=== PATIENT | male | born 1945 | race Caucasian/White ===

== ENCOUNTER 2018-03-26 13:42 | Outpatient (CLI) | payer MEDICARE ==
--- NOTE | 2018-03-26 15:28 | MRI ---
BRAIN MRI WITHOUT CONTRAST: HISTORY: Abnormal gait. Unsteady feet. Multiple falls. Right leg weakness. COMPARISON: None. FINDINGS: There is linear hyperintensity involving the cortex of the right cerebrum, on the axial gradient echo sequence, compatible with hemosiderin deposition/staining of the cortex, due to remote subarachnoid blood. There is GRE hypointensity at the expected region of the right subinsular cortex, which may r epresent a possible area of calcification. Comparison with noncontrast head CT would be beneficial. No acute parenchymal hemorrhage is appreciated. There is hemosiderin involving the left caudate nuc leus. There is age appropriate atrophy. There are malacic and gliotic changes involving the left parietal lobe. Additional white matter hyperintensities due to chronic small vessel ischemic changes are note d. No evidence of hydrocephalus. No parenchymal mass, mass effect, or midline shift. The basilar c isterns are patent. Central arterial flow voids are maintained. No restricted diffusion. Of note, the [place] is diminutive. 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 A partially empty sella is also id entified. Mild mucosal disease of the paranasal sinuses. Adequate mastoid air cell aeration. There is evidence of restricted diffusion involving the right cerebrum, subcortical white matter basilia g the right frontal and temporal lobes, near the vertex, as well as the left parietal lobe, near the vertex. The distribution suggests a possible watershed infarction. Sagittal T1 weighted images are limited due to motion. IMPRESSION: 1. Watershed infarction involving the right and, to a lesser extent, the left cerebrum. 2. 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 3. Hemosiderin staining of the right cerebrum, likely due to remote subarachnoid blood. 4. Hypointensity in the right subinsular cortex, which may represent calcification. POS: [facility]
== END 2018-03-26 13:43 | disposition home or self-care (01) ==
LOC: TBSIIMAG 13:42
DX: M62.81 Muscle weakness (generalized) (principal); I63.9 Cerebral infarction, unspecified; R93.0 Abnormal findings on diagnostic imaging of skull and head, not elsewhere classified
CPT/HCPCS: 70551

== ENCOUNTER 2018-06-02 12:18 | Outpatient (CLI) | payer MEDICARE ==
--- NOTE | 2018-06-02 15:08 | MRI ---
MRA NECK WITHOUT CONTRAST WITH 3D VOLUME RENDERING: Date: 06/02/18 CLINICAL HISTORY: Cerebrovascular accident with history of right leg weakness. FINDINGS: There is marked limitation due to patient motion. This distorts the regional arterial system; however , a well-defined left ICA is not visualized on the basis of this exam. This could relate to occlusion or high grade stenosis with flow limitation. The aortic arch and proximal vessels of the neck are no t visualized on the basis of this exam. The bilateral common carotid arteries are grossly patent, as is the imaged cervical right ICA. No definite high grade stenosis of the imaged vertebrobasilar syste m. IMPRESSION: Marked limitation with suggestion of occlusion versus high grade flow limiting stenosis of the cervic al left ICA. POS: [facility]
--- NOTE | 2018-06-02 16:06 | MRI ---
MRA BRAIN NONCONTRAST: MRA NISQUALLY OF [place] NONCONTRAST WITH 3D VOLUME RENDERING: CLINICAL HISTORY: Cerebrovascular accident. Right leg weakness. FINDINGS: There is parenchymal atrophy with associated compensatory dilatation of the ventricular system. Incr eased diffusion signal of the right central semiovale and posterior right frontal cortex is present, with T2 shine-through, compatible with subacute watershed infarctions. There is a small caliber of the visualized bilateral distal vertebral arteries, which converged to a small caliber basilar artery without high-grade stenosis or occlusion. There is a circulation to the left [employer]. Small caliber right [employer] is grossly patent. There is atherosclerotic irregularity o f the bilateral MCA, which are small caliber, diffusely. Focal moderate stenosis is present at the r ight M1 segment. The proximal left A1 segment is not visualized for comment. The right A1 is patent , and the anterior communicating artery is grossly unremarkable. Each A2 segment is grossly patent. Evaluation of the distal right ICA reveals no definite stenosis. There is absence of signal of the imaged aspect of the left ICA, indicating occlusion. IMPRESSION: 1. Subacute watershed infarctions of the right cerebral hemisphere. 2. Occlusion of the cervical left internal carotid artery. POS: [facility]
== END 2018-06-02 12:19 | disposition home or self-care (01) ==
LOC: BICMRI 12:18
PROVIDERS: ATTEND Family Medicine
DX: I63.9 Cerebral infarction, unspecified (principal); I65.22 Occlusion and stenosis of left carotid artery
CPT/HCPCS: 70544; 70547

== ENCOUNTER 2018-12-23 20:29 | Inpatient (IN) | payer MEDICARE ==
--- NOTE | 2018-12-23 22:29 | RAD ---
Radiograph chest one view: HISTORY: 73-year-old male with hypoglycemia FINDINGS: Prominent interstitial markings at lower lung zones. No consolidation identified. The cardiomediastin al silhouette is normal. No pneumothorax. The lateral costophrenic angles are sharp. IMPRESSION: No acute cardiopulmonary findings.
[2018-12-23 22:36] LABS: #Basophils 0.1 thou/uL (0.0-0.2); #Eosinphils 0.7 thou/uL (0.0-0.7); #Lymphocytes 1.4 thou/uL (1.20-3.40); #Monocytes 0.8 thou/uL (0.11-0.59); #Neutrophils 3.9 thou/uL (1.40-6.50); %Basophils 1.1 % (0.0-1.0); %Eosinophils 9.6 % (0.0-10.0); %Lymphocytes 21.2 % (21.0-51.0); %Monocytes 11.4 % (0.0-10.0); %Neutrophils 56.8 % (42.0-75.0); Hemoglobin 12.2 g/dL (14.0-18.0); Mean Corpuscular HGB CONC 32.9 g/dL (32.0-36.0); Mean Corpuscular Hemoglobin 29.6 pg (27.0-31.0); Mean Corpuscular Volume 89.9 fL (78.0-98.0); Platelet Count 203 thou/uL (130-400); RBC Distribution Width 11.8 % (11.5-14.5); Red Blood Cell (RBC) Count 4.12 mill/uL (4.70-6.10); White Blood Cell (WBC) Count 6.8 thou/uL (4.8-10.8)
--- NOTE | 2018-12-23 22:37 | CT ---
CT brain noncontrast: HISTORY: 73-year-old male with altered mental status and syncope, status post fall FINDINGS: There is no evidence of acute intra-axial or extra-axial hemorrhage. There is no midline shift or any other mass effect. There is no extra-axial fluid collection. There is no evidence of obstructive hydrocephalus. Calvarium is intact. There is diffuse brain parenchymal volume loss. There are low att enuation areas in the white matter. These are nonspecific, but in a patient of this age, they are probably chronic ischemic white matter changes due to microvascular atherosclerosis. Small old cortic al infarction involving right middle frontal gyrus. Small to moderate-sized old left upper parietal infarction including postcentral gyrus. IMPRESSION: 1) No acute intracranial findings. 2) involutional changes and chronic ischemic white matter changes. 3) bilateral upper cerebral old infarctions.
[2018-12-23 22:57] LABS: ALT (SGPT) 24 U/L (8-55); AST (SGOT) 20 U/L (5-34); Albumin 3.8 g/dL (3.4-4.8); Alkaline Phosphatase 74 U/L (40-150); Anion Gap 14 mmol/L (10-20); BUN (Urea Nitrogen) 39 mg/dL (8.4-25.7); Bilirubin, Total 0.4 mg/dL (0.2-1.2); Calc. Creatinine Clearance 0 mL/min (70-130); Calcium 9.8 mg/dL (7.8-10.44); Carbon Dioxide 24 mmol/L (23-31); Chloride 108 mmol/L (98-107); Estimated GFR-MDRD 42; Glucose 104 mg/dL (83-110); Potassium 4.4 mmol/L (3.5-5.1); Protein, Total 6.8 g/dL (5.8-8.1); Sodium 142 mmol/L (136-145)
[2018-12-23] MEDS ORDERED: Aspirin Chewable 81 MG TAB ONE (23:03)
[2018-12-24] MEDS ORDERED: Acetaminophen 325 MG TAB PO PRN (02:48)
[2018-12-24] MEDS ORDERED: Ondansetron PF 4 MG/2 ML Vial IVP PRN (02:48)
[2018-12-24] MEDS ORDERED: Ondansetron ODT 4 MG TAB PO PRN (02:48)
[2018-12-24] MEDS ORDERED: Acetaminophen 650 MG Suppository PR PRN (02:48)
[2018-12-24] MEDS: Sodium Chloride 0.9% 1,000 ML IV SCH ×2 (03:24→16:29)
--- NOTE | 2018-12-24 04:24 | HP ---
CHIEF COMPLAINT: Confusion and unsteadiness. HISTORY OF PRESENT ILLNESS: Mr. Sidhu is a pleasant 73-year-old man with a history of CVA x2 in the past, who states he previously was admitted to inpatient rehab approximately 1 year ago following the CVA. He had improvement, but more recently, has noted progressive deterioration in his gait and intermittent weakness, particularly in the lower extremities, which often give out on him. The patient reports an episode of confusion earlier this evening. He states he was going to go to the store with his daughter and had come outside without any shoes on and was briefly confused, thinking he had put them on. His daughter noted he seemed a bit more unsteady than usual. The patient reports feeling generally unwell. He went out with his daughter, came back, and while walking to the kitchen, suddenly felt his legs give way. Denies any associated dizziness, nausea, or vomiting. He reports having frequent headaches and often wakes up in the morning with headache. Denies any associated nausea or vomiting. No abdominal pain or cramping. Denies having any urinary symptoms. Has not had any changes with his bowels. No cough or shortness of breath. REVIEW OF SYSTEMS: All other review of systems apart from those mentioned above in HPI is negative. ALLERGIES: IODINE. CURRENT MEDICATIONS: 1. Plavix. 2. Temazepam. 3. Lexapro. 4. Tamsulosin. 5. Hydroxyzine. 6. Lipitor. 7. Metoprolol. 8. Levothyroxine. 9. Aspirin. PAST MEDICAL HISTORY: 1. Hypothyroidism. 2. BPH. 3. CVA x2. 4. Known carotid artery stenosis. 5. Depression. 6. Anxiety. PAST SURGICAL HISTORY: Left knee replacement. SOCIAL HISTORY: The patient denies any tobacco use or alcohol use. Denies any illicit drug use. PHYSICAL EXAMINATION: GENERAL: The patient appears well developed, well nourished, and in no acute distress. VITAL SIGNS: Temperature 98.7, pulse 75, respirations 16, O2 saturation 98% on room air, and blood pressure 155/68. HEENT: Normocephalic and atraumatic. Pupils are equal, round, and reactive to light. Sclerae are without icterus. Extraocular movements are intact. No lateral nystagmus present. Oropharynx is clear. NECK: Supple. LUNGS: Clear to auscultation bilaterally without any wheezes, rales, or rhonchi. CARDIAC: Regular rate and rhythm. ABDOMEN: Soft, nontender, and nondistended. Normoactive bowel sounds present. No guarding or rigidity. No renal angle tenderness. EXTREMITIES: Without any edema or calf tenderness. Power 5/5 in all limbs. Full range of motion in all limbs. NEUROLOGIC: Alert and oriented x3. No focal deficits present. Speech normal. Facial movements/sensation intact. SKIN: Without rash or jaundice. LABORATORY DATA: White blood count 6.8, hemoglobin 12.2, hematocrit 37.1, platelets 203. Sodium 142, potassium 4.4, chloride 108, BUN 39, creatinine 1.61, glucose 104, calcium 9.8, total bilirubin 0.4, AST 20, ALT 24, alkaline phosphatase 24. CK-MB 3, troponin 0.076. Albumin 3.8. TSH 0.0102. IMAGING STUDIES: Chest x-ray: No acute cardiopulmonary findings. Brain CT: No acute intracranial findings. Involutional changes and chronic ischemic white matter changes present. Bilateral upper cerebral old infarctions present. IMPRESSION AND PLAN: Mr. Sidhu is a very pleasant 73-year-old man, who is being admitted for transient confusion and worsening gait, concerning for possible transient ischemic attack. 1. Transient ischemic attack. The patient known to have history of stenosis. States his symptoms have been gradually worsening over the last few months and significantly worse over the last week. No symptoms at present. CT of the brain showed no acute changes. Due to elevated renal function, unable to obtain a CT angiogram, but we will obtain an MRI of the brain. A consult was placed to Neurology and carotid ultrasound was requested. 2. Lower extremity weakness. The patient has had frequent falls with sudden weakness in the legs. Potentially, general progressive deconditioning. Urinalysis was requested to rule out underlying urinary tract infection. The patient will benefit from PT/OT eval. Potentially, he may benefit from rehab screening pending results of additional investigations. 3. Hypertension. Resume home medications and monitor blood pressure. 4. Hypothyroidism. Resume home medications. 5. Depression and anxiety. Resume home medications. 6. Gastrointestinal prophylaxis. 7. Deep venous thrombosis prophylaxis. Mechanical SCDs. 8. Code status. The patient wishes to be DNAR. His surrogate decision maker would be his daughter, Luma Dobson. The patient's case was discussed with Dr. Ty, who agrees with plan of care as described above. Job ID: [id number]
[2018-12-24 04:28] LABS: #Basophils 0.1 thou/uL (0.0-0.2); #Eosinphils 0.8 thou/uL (0.0-0.7); #Lymphocytes 1.7 thou/uL (1.20-3.40); #Monocytes 0.8 thou/uL (0.11-0.59); #Neutrophils 3.2 thou/uL (1.40-6.50); %Basophils 1.2 % (0.0-1.0); %Eosinophils 11.6 % (0.0-10.0); %Lymphocytes 25.9 % (21.0-51.0); %Monocytes 12.9 % (0.0-10.0); %Neutrophils 48.5 % (42.0-75.0); Hemoglobin 11.6 g/dL (14.0-18.0); Mean Corpuscular HGB CONC 32.6 g/dL (32.0-36.0); Mean Corpuscular Hemoglobin 29.2 pg (27.0-31.0); Mean Corpuscular Volume 89.4 fL (78.0-98.0); Mean Platelet Volume 7.1 fL (7.4-10.4); Platelet Count 185 thou/uL (130-400); RBC Distribution Width 11.6 % (11.5-14.5); Red Blood Cell (RBC) Count 3.98 mill/uL (4.70-6.10); White Blood Cell (WBC) Count 6.6 thou/uL (4.8-10.8)
[2018-12-24] MEDS ORDERED: Temazepam 15 MG CAP PO PRN (04:34)
[2018-12-24] MEDS: hydrALAZINE 20 MG/ML VIAL SLOW IVP PRN ×2 (04:40→16:27)
[2018-12-24] MEDS ORDERED: hydrALAZINE 20 MG/ML VIAL ONE (04:43)
[2018-12-24 04:56] LABS: Troponin I 0.072 ng/mL (< 0.028)
[2018-12-24 05:19] LABS: Triglycerides 91 mg/dL (Less than 150)
[2018-12-24 05:21] LABS: Anion Gap 13 mmol/L (10-20); BUN (Urea Nitrogen) 39 mg/dL (8.4-25.7); Calc. Creatinine Clearance 0 mL/min (70-130); Calcium 9.6 mg/dL (7.8-10.44); Carbon Dioxide 22 mmol/L (23-31); Chloride 109 mmol/L (98-107); Cholesterol 63 mg/dl (< 200 Desired); Estimated GFR-MDRD 46; Glucose 94 mg/dL (83-110); HDL Cholesterol 21 mg/dL (>60 Neg Risk); Sodium 139 mmol/L (136-145)
[2018-12-24 05:24] LABS: LDL Cholesterol, Calculated 24 mg/dL
[2018-12-24] MEDS ORDERED: Levothyroxine Sodium 100 MCG TAB PO SCH (06:00)
[2018-12-24] MEDS ORDERED: Clopidogrel Bisulfate 75 MG TAB ONE (09:00)
[2018-12-24] MEDS: Clopidogrel Bisulfate 75 MG TAB PO SCH (09:09)
[2018-12-24] MEDS: Aspirin 81 mg Enteric Coated Tablet PO SCH (09:09)
[2018-12-24] MEDS: Escitalopram Oxalate 20 mg Tablet PO SCH (09:10)
[2018-12-24] MEDS: Tamsulosin HCl 0.4 MG CAP PO SCH (09:10)
--- NOTE | 2018-12-24 09:50 | MRI ---
Noncontrast enhanced MRI images brain HISTORY: Progressive weakness dizziness for several days. Comparison made to previous exam from 03/26/2018. Multiplanar multisequence noncontrast enhanced MRI images brain obtained. Images demonstrate diffuse cortical atrophy and deep white matter ischemic changes. Old area of left parietal and right frontal stroke with gliotic changes seen. Multiple old areas of intraparenchymal hemorrhages with secondary conversion to hemosiderin seen. The se appear to been present on the previous exam and are unchanged. Right anterior parafalcine small subdural chronic hematoma seen. This is also unchanged. Normal intracranial flow voids seen. IMPRESSION: 1: Cortical atrophy and deep white matter ischemic changes. Numerous old areas of intracranial stroke s seen. No significant interval changes seen.
--- NOTE | 2018-12-24 11:27 | ULT ---
BILATERAL CAROTID DUPLEX ULTRASOUND: HISTORY: Dizziness. TECHNIQUE: [place]-scale ultrasound with color-flow and spectral Doppler imaging of the extracranial carotid artery system was performed bilaterally. FINDINGS: There is plaque formation in both ICAs. There is complete occlusion of the left ICA, without evidence of flow. The peak systolic velocity in the right ICA measures 570 cm per second, with an end-diastolic velocit y of 240 cm per second and a systolic ratio of 5.03. Flow in both vertebral arteries remains antegrade. IMPRESSION: 1. Occluded left internal carotid artery. 2. Severe (greater than 70%) stenosis involving the right internal carotid artery. POS: [facility]
[2018-12-24 14:45] VITALS: BMI 28.3
[2018-12-24] MEDS ORDERED: Amlodipine 5 MG TAB PO SCH (16:30)
--- NOTE | 2018-12-24 16:56 | PRG ---
DATE OF SERVICE: 12/24/2018 SUBJECTIVE: The patient is seen and examined at the bedside. He is feeling significantly better. He just came back from the Radiology Department, where he had brain MRI done and carotid Doppler study. OBJECTIVE: HEENT: His head is atraumatic and normocephalic. Eyes are PERRLA. Sclerae are nonicteric. Oral mucosa is moist. NECK: Supple. No lymphadenopathy. Thyroid is not palpable. LUNGS: Clear. HEART: S1, S2 normal. No S3. No S4. No any murmur. ABDOMEN: Soft, nontender. Bowel sounds are present. No organomegaly. EXTREMITIES: There is no clubbing, cyanosis, or edema. NEUROLOGICAL: He is alert and oriented x4. There is no any sensory or motor deficit present. Cranial nerves are intact. LABORATORY DATA: Labs showed white count of 6.6, hemoglobin 11.6, hematocrit 35.6, platelet count is 185,000. Sodium 139, potassium 5.0, chloride 109, CO2 of 22, BUN 39, creatinine 1.50. Three sets of troponins, indeterminate, 0.076, 0.06, 0.072. Cholesterol 63, LDL 24, HDL 21, triglycerides 91. Third generation TSH is 0.010. IMAGING STUDIES: Carotid Doppler study showed complete occlusion of left internal carotid artery and severe greater than 70% stenosis involving the right internal carotid artery. IMPRESSION: 1. fall, which seems to be without loss of consciousness. 2. Bilateral internal carotid artery stenosis, complete occlusion on the left side and more than 70% on the right side. 3. Lower extremity weakness. Apparently, the patient has this issue going on approximately for 2 years. He did physical therapy for several months, which improved his weakness, but approximately 1 month after he finished, he started having the weakness again. 4. Hypertension. 5. Hypothyroidism. 6. Depression and anxiety. PLAN: Plan is to start him on amlodipine 5 mg tonight and then daily since his blood pressure is running high at 195. We will get Dr. Tierney on consult for his significant stenosis of the right internal carotid artery. He is to establish with him for some time. We will continue his current regimen with Plavix and aspirin, and we will restart his atorvastatin 40 mg daily. Job ID: [id number]
[2018-12-24] MEDS ORDERED: predniSONE 50 MG TAB PO SCH ×3 (17:30→23:55)
[2018-12-24 18:49] LABS: Bilirubin Negative (Negative); Blood, Urine Negative (Negative); Clarity CLEAR (Clear); Glucose, Urine (Dipstick) Negative (Negative); Leukocyte Negative (Negative); Nitrite Negative (Negative); Protein, Urine (Dipstick) Negative (Neg-Trace); Specific Gravity, Urine 1.011 (1.002-1.036); Urobilinogen 0.2 mg/dL (0.2-1.0); pH, Urine 5.5 (5.0-9.0)
[2018-12-24 18:51] LABS: Bacteria/HPF None Seen HPF (None Seen); Hyaline Casts/LPF 0-3 HYALINE CAST LPF (0-3 Hyaline); RBC/HPF 0-3 HPF (0-3); Squamous Epithelial None Seen HPF (0-3); Urine Culture Reflex No No; WBC/HPF None Seen HPF (0-3)
[2018-12-24] MEDS ORDERED: Sodium Chloride 0.45% 1,000 ML IV SCH (22:00)
--- NOTE | 2018-12-25 00:58 | CON ---
DATE OF CONSULTATION: HISTORY OF PRESENT ILLNESS: This is a 73-year-old gentleman who was admitted with profound leg weakness and falling over. The patient does have past medical history of recurrent episodes of leg weakness and falls, previously have been taking care of in the dialysis area where he suffered a stroke, probably last year. Workup at that time demonstrated evidence of bilateral CVAs. A carotid ultrasound done in dialysis at that time showed an occluded left internal carotid artery and 50% right internal carotid artery stenosis. The patient has multiple cardiovascular risk factors including hyperlipidemia and a remote smoking history, although he has not smoked since 2006. SOCIAL HISTORY: He currently lives with his daughter. He is unable to drive due to multiple falls. He is retired from maintenance for [employer]. MEDICATIONS: 1. Lexapro 10 mg a day. 2. Metoprolol 50 mg twice a day. 3. Temazepam at bedtime. 4. He was also taking Plavix 75 a day. 5. Flomax 0.4 a day. 6. Atorvastatin 40 a day. 7. Aspirin 81 a day. 8. Synthroid 100 mcg a day. ALLERGIES: HE REPORTS ALLERGIES TO IODINE, WHICH CAUSES A RASH. PHYSICAL EXAMINATION: VITAL SIGNS: Blood pressure 190/80, heart rate 68. GENERAL: Alert, cooperative gentleman, in no distress. NECK: Bilateral carotid bruits. No JVD. LUNGS: Clear to auscultation. CARDIAC: Distant heart sounds. Regular rhythm. No murmurs. ABDOMEN: Soft and nontender. EXTREMITIES: He has palpable femoral and popliteal pulses bilaterally. NEUROLOGIC: Speech is normal. Strength appears normal in all extremities. Workup at this time shows an ultrasound on the right with velocities greater than 500 cm/second, which would be consistent with a 90% right internal carotid stenosis in the face of a known left carotid stenosis. We will need a CT angiogram to sort out the difference in the ultrasound from that last year to this year and we will premedicate with prednisone and hydrate overnight. Job ID: [id number]
[2018-12-25] MEDS: hydrALAZINE 20 MG/ML VIAL SLOW IVP PRN (04:22)
[2018-12-25] MEDS: Levothyroxine Sodium 75 MCG TAB PO SCH (06:35)
[2018-12-25] MEDS: Amlodipine 5 MG TAB PO SCH (08:28)
[2018-12-25] MEDS: Tamsulosin HCl 0.4 MG CAP PO SCH (08:30)
[2018-12-25] MEDS: Aspirin 81 mg Enteric Coated Tablet PO SCH (08:30)
[2018-12-25] MEDS: Clopidogrel Bisulfate 75 MG TAB PO SCH (08:31)
[2018-12-25] MEDS: Atorvastatin Calcium 40 MG TAB PO SCH (08:31)
[2018-12-25] MEDS: Escitalopram Oxalate 20 mg Tablet PO SCH (08:31)
[2018-12-25] MEDS: Sodium Chloride 0.9% 1,000 ML IV SCH (08:32)
--- NOTE | 2018-12-25 09:46 | CT ---
CONTRAST ENHANCED CTA CAROTIDS: HISTORY: Patient with abnormal history of TIAs. Abnormal carotid Doppler ultrasound evaluation. FINDINGS: Contrast-enhanced CTA carotid arteries obtained. Two-D and 3D reconstruction images performed on an independent 3D work station. Calcification is seen in the aortic arch. No definite evidence of visualized pulmonary parenchymal l esion seen. No definite evidence of soft tissue neck abnormality seen. The parotid spaces are unremarkable. CTA: The right brachiocephalic artery is patent. The right common carotid artery is patent. In the right carotid bifurcation, there is severe calcified and noncalcified plaque in the origin of the right IC A with approximately focal area of an approximately 90% right ICA stenosis. The length of the stenos is measures approximately 7-8 mm. Findings concerning for high-grade right ICA stenosis. More dista lly, the right ICA Is patent. Flow is seen in the right ECA. LEFT CAROTID: The left common carotid artery is patent. Good flow is seen in the left external carotid artery. At the left carotid bifurcation, there is complete occlusion of the left internal carotid artery. Right and left vertebral artery and basilar arteries are patent. IMPRESSION: 1. Complete occlusion left internal carotid artery. 2. Approximately 90% right internal carotid artery stenosis. Surgical consultation recommended. CODE T
[2018-12-25] MEDS ORDERED: hydrOXYzine 25 MG TAB PO PRN (12:14)
--- NOTE | 2018-12-25 13:16 | PRG ---
DATE OF SERVICE: 12/25/2018 SUBJECTIVE: The patient is seen and examined at the bedside. He does not have much complaints to offer. He feels significantly better. His appetite is fair. OBJECTIVE: VITAL SIGNS: Blood pressure is 117/68, pulse is 65, respiratory rate is 18, O2 saturation is 98% on room air, and temperature is 97.9. HEENT: His head is atraumatic and normocephalic. Eyes are PERRLA. Sclerae are nonicteric. Oral mucosa is moist. NECK: Supple. LUNGS: Clear. HEART: S1 and S2 normal. No S3. No S4. ABDOMEN: Soft, nontender, and nondistended. EXTREMITIES: No clubbing, cyanosis, or edema. NEUROLOGICAL: He is alert and oriented x4. There are no any motor or sensory deficits present. Cranial nerves are intact. LABORATORY DATA: Labs showed normal urinalysis from yesterday. angiography showed more than 90% stenosis in his carotid artery on the right side and complete occlusion of the left internal carotid artery. IMPRESSION: 1. Status post fall which seems to be without loss of consciousness, related to his lower extremity weakness. 2. Bilateral internal carotid artery stenosis, left side complete stenosis and the right side 90% or more on the CT angiogram done this morning. The patient was seen by Dr. Tierney for cardiovascular evaluation, and I believe that he is going to have endarterectomy done on the right side by Dr. Tierney tomorrow morning. 3. Lower extremity weakness. We will consider outpatient physical therapy after he recovers from his surgery. 4. Hypertension. 5. Hypothyroidism. 6. Depression and anxiety. PLAN: The patient's blood pressure is improved since he is started on amlodipine. He is going to have right carotid endarterectomy by Dr. Tierney tomorrow morning, and we will continue the rest of the regimen. Job ID: [id number]
--- NOTE | 2018-12-25 22:58 | CON ---
DATE OF CONSULTATION: 12/25/2018 CONSULTING PHYSICIAN: Hospitalist Service. IMPRESSION: 1. Possible transient ischemic attack secondary to high-grade right carotid stenosis. 2. 100% occlusion of the left carotid. 3. The patient is on maximum medical therapy. PLAN: 1. Vascular Surgery has booked him for carotid endarterectomy. 2. Orthostatic vital signs to rule out orthostatic hypotension. HISTORY OF PRESENT ILLNESS: Mr. Siduh is a 73-year-old man who came in after a fall at the house. He reports that his legs became weak and he fell to the ground. He is a bit uncertain but thinks that possibly the right leg got weak first. He did not notice any weakness in the right arm or face. He did not have any slurred speech or alteration of awareness. He felt a bit weak in general when it happened, but did not feel like he was losing consciousness. He came in for evaluation. His MRI of the brain showed some chronic small-vessel ischemic changes, but no acute abnormalities. His carotid ultrasound suggested a 70% stenosis on the right. CT angiogram suggests somewhat worse. His lipid panel showed a ratio of 3.0. His lab work was all unremarkable other than a mildly elevated creatinine. He was currently taking aspirin and Plavix along with a statin. PAST MEDICAL HISTORY: TIAs, hyperlipidemia, hypertension. ALLERGIES: IODINE. SOCIAL HISTORY: No tobacco or alcohol. FAMILY HISTORY: Noncontributory. MEDICATIONS: Medication list was reviewed. REVIEW OF SYSTEMS: Ten-system review of systems is otherwise negative. PHYSICAL EXAMINATION: VITAL SIGNS: Stable. He is afebrile. HEENT: Pupils are equal and reactive. Conjunctivae are clear. Oropharynx is clear. NECK: Supple. No lymphadenopathy. EXTREMITIES: No cyanosis or edema. NEUROLOGIC: He is alert and appropriate. His speech is fluent and clear. Cranial nerves 2 through 12 are intact. Motor exam shows good strength bilaterally without fix or drift. Cerebellar testing shows normal [id number] movements. Sensations intact to touch. He walked with a walker today and reports he does not feel back to his baseline level of steadiness. LABORATORY DATA: EKG shows a normal sinus rhythm. SUMMARY: Gentleman has a high-grade stenosis on the right and 100% occlusion on the left. I totally agree with endarterectomy. It is difficult to say whether this was a TIA or orthostatic episode, cardiac arrhythmia would also be a consideration. Job ID: [id number]
[2018-12-26] MEDS: Sodium Chloride 0.9% 1,000 ML IV SCH ×2 (00:50→21:15)
[2018-12-26] MEDS: Levothyroxine Sodium 75 MCG TAB PO SCH (05:35)
[2018-12-26] MEDS ORDERED: Fentanyl 100 MCG/2 ML VIAL ONE ×2 (06:53→10:09)
[2018-12-26] MEDS ORDERED: Protamine Sulfate 50 MG/5 ML VIAL ONE (07:04)
[2018-12-26] MEDS ORDERED: Heparin 5,000 UNITS/ML VIAL ONE (07:04)
[2018-12-26] MEDS ORDERED: Phenylephrine HCL 10 MG/ML VIAL ONE (08:35)
[2018-12-26] MEDS ORDERED: Promethazine HCl 25 MG/ML VIAL IM PRN (09:46)
[2018-12-26] MEDS ORDERED: Promethazine HCl 25 MG/ML VIAL SLOW IVP PRN (09:46)
[2018-12-26] MEDS ORDERED: Ondansetron HCl/PF 4 MG/2 ML Vial IVP PRN (09:46)
[2018-12-26] MEDS ORDERED: Nitroglycerin 50 MG/250 ML BOT 250 ML IVPB PRN (10:23)
[2018-12-26] MEDS ORDERED: Ondansetron PF 4 MG/2 ML Vial IVP PRN (10:23)
[2018-12-26] MEDS ORDERED: Fentanyl 100 MCG/2 ML VIAL SLOW IVP PRN (10:23)
[2018-12-26] MEDS ORDERED: HYDROcodone/Acetaminophen 5/325 mg Tablet PO PRN ×2 (10:23)
[2018-12-26] MEDS ORDERED: Sodium Chloride 0.9% 1,000 ML IV SCH (10:23)
[2018-12-26] MEDS ORDERED: Phenylephrine 10 MG/NS 250 ML 250 ML IVPB PRN (10:23)
[2018-12-26] MEDS ORDERED: DOPamine 400 MG/D5W 250 ML 250 ML IVPB PRN (10:23)
[2018-12-26] MEDS ORDERED: Midazolam HCl 2 mg/2 ml Vial ONE (10:37)
--- NOTE | 2018-12-26 13:01 | OP ---
DATE OF PROCEDURE: 12/26/2018 PREOPERATIVE DIAGNOSES: Critical right carotid stenosis, left carotid occlusion. PROCEDURE PERFORMED: Right carotid endarterectomy with pericardial patch angioplasty. ANESTHESIA: General. ESTIMATED BLOOD LOSS: Less than 100. DESCRIPTION OF PROCEDURE: After adequate anesthesia had been obtained, the patient was prepped and draped after an ultrasound-guided marking. An incision was made and common internal and external carotid artery was exposed. Hypoglossal nerve was not visualized. After 7500 units of heparin and an ACT greater than 210 seconds, clamps were applied. Arteriotomy performed and a 12-[place] shunt snugly fit in the ICA. Endarterectomy was then performed with nice tapering distally. The area was thoroughly irrigated. Following this, the bovine patch was used to close the arteriotomy. The shunt was removed prior to completing the suture line. Vessels were backflushed and forward flushed and flows restored up the external and then internal carotid artery. Protamine was given to partially reverse the heparin and after obtaining good hemostasis, the wound was irrigated and closed in layers. Job ID: [id number]
[2018-12-26] MEDS ORDERED: Sodium Chloride 0.9% 100 ML ONE (14:19)
[2018-12-26] MEDS ORDERED: CEFAZOLIN 1 GM VIAL ONE ×2 (14:19)
[2018-12-26] MEDS ORDERED: ePHEDrine 50 MG/ML VIAL ONE (15:22)
[2018-12-26] MEDS ORDERED: Rocuronium Bromide 10 MG/ML (10ML VIAL) ONE (15:22)
[2018-12-26] MEDS ORDERED: Glycopyrrolate 0.2 MG/ML 5 ML SYRINGE ONE (15:22)
[2018-12-26] MEDS ORDERED: PHENYLEPHRINE-NS 100 MCG/ML 10 ML SYRINGE ONE (15:22)
[2018-12-26] MEDS ORDERED: Lidocaine 1% PF 5 ML VIAL ONE (15:22)
[2018-12-26] MEDS ORDERED: Ondansetron PF 4 MG/2 ML Vial ONE (15:22)
[2018-12-26] MEDS ORDERED: PROPOFOL 200 MG/20 ML VIAL ONE (15:22)
[2018-12-26] MEDS ORDERED: Heparin 10,000 UNITS/ 10 ML VIAL ONE (15:22)
[2018-12-26] MEDS ORDERED: CEFAZOLIN 2 GM in Premix Bag 1 BAG IVPB SCH (15:30)
--- NOTE | 2018-12-26 17:23 | PRG ---
DATE OF SERVICE: 12/26/2018 SUBJECTIVE: The patient is seen and examined at the bedside. He is getting ready for his surgery this morning. OBJECTIVE: VITAL SIGNS: Blood pressure is 144/76, pulse is 60, temperature is 97.3, respirations 16, O2 saturation is 95% on room air. HEENT: His head is atraumatic and normocephalic. Eyes are PERRLA. Sclerae are nonicteric. Oral mucosa is moist. NECK: Supple. LUNGS: Clear. HEART: S1 and S2, somewhat irregular. No S3. No S4. ABDOMEN: Soft, nontender, nondistended. EXTREMITIES: No clubbing, cyanosis, or edema. NEUROLOGIC: He is alert and oriented x4. There are no any motor deficits. LABORATORY DATA: None today. IMPRESSION: 1. Status post fall and possible transient ischemic attack. 2. Bilateral internal carotid artery stenosis with left-sided completely stenotic and right side more than 90%. The patient was seen by neurologist, who recommends surgical intervention since the patient is on maximal therapy at this point. 3. Lower extremity weakness. 4. Hypertension. 5. Hypothyroidism. 6. Depression and anxiety. PLAN: Plan is to go ahead with left endarterectomy. Continue current regimen. Continue atorvastatin, aspirin, , Plavix, Lexapro, levothyroxine, metoprolol, and Flomax after the surgery and based on Dr. Tierney's postop recommendations. Job ID: [id number]
[2018-12-26] MEDS: Atorvastatin Calcium 40 MG TAB PO SCH (17:54)
[2018-12-26] MEDS: Aspirin 81 mg Enteric Coated Tablet PO SCH (17:54)
[2018-12-26] MEDS: Tamsulosin HCl 0.4 MG CAP PO SCH (17:55)
[2018-12-26] MEDS: Clopidogrel Bisulfate 75 MG TAB PO SCH (17:55)
[2018-12-26] MEDS: Escitalopram Oxalate 20 mg Tablet PO SCH (17:55)
[2018-12-26] MEDS: Amlodipine 5 MG TAB PO SCH (19:58)
--- NOTE | 2018-12-26 20:27 | CT ---
Head CT without contrast 12/26/2018: COMPARISON: 12/23/2018 HISTORY: Aphasia, right-sided deficits TECHNIQUE: Axial CT imaging at 5 mm intervals from vertex through skull base without contrast FINDINGS: There is mucosal thickening of the ethmoid air cells and the right maxillary sinus, stable. No acute osseous abnormality. Multifocal encephalomalacia and periventricular hypodensity, consistent with prior ischemia, stable. No intracranial hemorrhage, midline shift, mass effect, or ve ntricular enlargement. IMPRESSION: Stable head CT-no acute findings.
[2018-12-26] MEDS: CEFAZOLIN 2 GM in Premix Bag 1 BAG IVPB SCH (21:14)
[2018-12-26] MEDS: Heparin 25,000 units/D5W 500 ML IVPB SCH (21:25)
[2018-12-26] MEDS ORDERED: Heparin 5,000 UNITS/ML VIAL SLOW IVP SCH (21:30)
[2018-12-27] MEDS: CEFAZOLIN 2 GM in Premix Bag 1 BAG IVPB SCH (04:11)
[2018-12-27] MEDS: Levothyroxine Sodium 75 MCG TAB PO SCH (05:22)
[2018-12-27 06:02] LABS: #Lymphocytes 1.6 thou/uL (1.20-3.40); #Monocytes 1.2 thou/uL (0.11-0.59); #Neutrophils 6.1 thou/uL (1.40-6.50); %Basophils 0.5 % (0.0-1.0); %Eosinophils 10.5 % (0.0-10.0); %Lymphocytes 16.5 % (21.0-51.0); %Monocytes 11.6 % (0.0-10.0); Hemoglobin 10.6 g/dL (14.0-18.0); Mean Corpuscular HGB CONC 33.9 g/dL (32.0-36.0); Mean Corpuscular Hemoglobin 30.3 pg (27.0-31.0); Mean Corpuscular Volume 89.5 fL (78.0-98.0); Mean Platelet Volume 7.7 fL (7.4-10.4); Platelet Count 169 thou/uL (130-400); RBC Distribution Width 11.8 % (11.5-14.5); White Blood Cell (WBC) Count 9.9 thou/uL (4.8-10.8)
[2018-12-27 06:13] LABS: Anion Gap 11 mmol/L (10-20); BUN (Urea Nitrogen) 23 mg/dL (8.4-25.7); Calc. Creatinine Clearance 70 mL/min (70-130); Carbon Dioxide 23 mmol/L (23-31); Chloride 109 mmol/L (98-107); Estimated GFR-MDRD 52; Glucose 93 mg/dL (83-110); Potassium 3.9 mmol/L (3.5-5.1); Sodium 139 mmol/L (136-145)
[2018-12-27] MEDS: Atorvastatin Calcium 40 MG TAB PO SCH (08:41)
[2018-12-27] MEDS: Tamsulosin HCl 0.4 MG CAP PO SCH (08:41)
[2018-12-27] MEDS: Clopidogrel Bisulfate 75 MG TAB PO SCH (08:41)
[2018-12-27] MEDS: Aspirin 81 mg Enteric Coated Tablet PO SCH (08:41)
[2018-12-27] MEDS: Escitalopram Oxalate 20 mg Tablet PO SCH (08:41)
[2018-12-27] MEDS ORDERED: Aspirin Chewable 81 MG TAB PO SCH (09:00)
--- NOTE | 2018-12-27 09:04 | PRG ---
DATE OF SERVICE: 12/27/2018 SUBJECTIVE: The patient is seen examined at bedside. He had episode of a TIA last night after the surgery around 7 o'clock. He started having some slurred speech and facial droop. Dr. Tierney was notified and he started him on heparin drip and everything resolved in an hour. The CT scan was done and which did not really show any new findings. OBJECTIVE: VITAL SIGNS: Blood pressure is 108/55, pulse is 62, respiratory rate is 14, O2 saturation is 98% on room air. HEENT: His head is atraumatic and normocephalic. Eyes are PERRLA. Sclerae are nonicteric. Oral mucosa is moist. NECK: He has incision on the right side of the neck, post surgical. LUNGS: Clear. HEART: S1, S2 normal. No S3. No S4. ABDOMEN: Soft, nontender. Bowel sounds are present. No organomegaly. EXTREMITIES: No clubbing, cyanosis, or edema. NEUROLOGICAL EXAMINATION: He is alert and oriented x4. There is no any motor or sensory deficits present. Cranial nerves are intact. There is some weakness in the lower extremities, but this was present before the surgery. LABORATORY DATA: Labs showed white count of 9.9, hemoglobin 10.6, hematocrit 31.3, platelet count is 169,000. APTT 54.4. Sodium 139, potassium 3.9, chloride 109, CO2 of 23, BUN 23, creatinine 1.35. The rest of chemistry within normal limits. CT of the brain as I mentioned above, did not show any abnormalities. IMPRESSION: 1. Status post fall and possible transient ischemic attack, most likely secondary to right-sided, more than 90% stenosis in the internal carotid artery. The patient's left internal carotid artery is completely occluded. The patient as mentioned above, had transient ischemic attack last night post surgery. He was started on heparin drip and he is going to remain in the unit until tomorrow. This is managed per cardiothoracic surgeon. 2. Lower extremity weakness. We will work with the community case manager to send him to rehab for PT. 3. Hypertension. 4. Hypothyroidism. 5. Depression and anxiety. PLAN: As mentioned above, plan is to keep him for additional 24 hours on IV heparin, continue his Plavix, aspirin, and atorvastatin, and continue his Flomax and metoprolol, and he should be able to go to telemetry tomorrow, then transfer to the rehab when it is arranged. Job ID: [id number]
--- NOTE | 2018-12-27 10:38 | CON ---
DATE OF CONSULTATION: HISTORY OF PRESENT ILLNESS: Peña Sidhu is a 73-year-old very pleasant gentleman, who has been in the hospital since 12/24. Presented to the hospital with a history of multiple passing-out spells, that has been going on several years. He has no weaknesses. He has had evidence of previous CVA in the past. At this time, he had a workup, which shows 90% right internal carotid stenosis. He underwent left carotid endarterectomy by Dr. Niall aragon in the ICU. He is awake, alert, responsive this morning. He also has high-grade occlusion of his left carotid. He is on medical therapy. PAST MEDICAL HISTORY: Pertinent for hypertension, renal failure, hyperlipidemia, orthostatic hypotension, multiple falls. He apparently does snore. History of hypothyroidism. Depression. PAST SURGICAL HISTORY: Left knee. ALCOHOL: None. TOBACCO: None. HOME MEDICATIONS: Includes, 1. Hydroxyzine 25. 2. Plavix 75. 3. Restoril 15. 4. Flomax 0.4. 5. Toprol-XL 50. 6. Lexapro 20. 7. Lipitor 40. 8. Aspirin 81. 9. Synthroid 100. ALLERGIES: IODINE. SOCIAL HISTORY: Worked for [employer], retired. REVIEW OF SYSTEMS: Ten-point negative. PHYSICAL EXAMINATION: VITAL SIGNS: O2 saturation is 98% on room air, pulse 64, blood pressure 140/60, respiratory rate 15. CHEST: No wheezing, crackles. CARDIAC: Normal S1, S2. No gallops. ABDOMEN: No masses. LABORATORY DATA: White count 9000, H and H 10 and 30, platelet count is normal. Creatinine 1.3. CT brain unremarkable. IMPRESSION: 1. Status post right carotid endarterectomy. 2. Benign prostatic hypertrophy. 3. Hypertension. 4. Apparently, orthostatic hypotension. 5. Possible sleep apnea. PLAN: Pulmonary duffy, appears to be stable. Continue aggressive PT, supportive care. Outpatient sleep study by his primary care physician. We will follow. Consultation note, 70 minutes, 50% direct patient care. Job ID: [id number]
[2018-12-27] MEDS: Sodium Chloride 0.9% 1,000 ML IV SCH ×2 (16:21→17:12)
[2018-12-27] MEDS: Heparin 25,000 units/D5W 500 ML IVPB SCH (19:00)
[2018-12-27] MEDS: hydrALAZINE 20 MG/ML VIAL SLOW IVP PRN (21:02)
[2018-12-28] MEDS: hydrALAZINE 20 MG/ML VIAL SLOW IVP PRN (05:35)
[2018-12-28] MEDS: Levothyroxine Sodium 75 MCG TAB PO SCH (05:52)
[2018-12-28] MEDS: Acetaminophen 325 MG TAB PO PRN (07:49)
--- NOTE | 2018-12-28 08:28 | PRG ---
DATE OF SERVICE: 12/28/2018 SUBJECTIVE: The patient is seen and examined at the bedside. He is doing well. He could not sleep last night much, but overall, he is feeling better. He did not have any other unexpected events overnight. OBJECTIVE: VITAL SIGNS: Blood pressure is 138/61, pulse is 72, respiratory rate is 17, O2 saturation is 99% on room air. HEENT: His head is atraumatic and normocephalic. Eyes are PERRLA. Sclerae are nonicteric. Oral mucosa is moist. NECK: Supple. Right side of the neck incision is healing properly. LUNGS: Clear. HEART: S1, S2 normal. No S3. No S4. ABDOMEN: Soft, nontender, nondistended. EXTREMITIES: No clubbing, cyanosis, or edema. NEUROLOGICAL EXAMINATION: He follows my commands. He moves his all four extremities. There is no any motor or sensory deficits present. Cranial nerves are intact. LABORATORY DATA: Showed APTT is 66.9. IMPRESSION: 1. Status post fall and possible transient ischemic attack, most likely secondary to right-sided more than 90% stenosis in the internal carotid artery, status post right endarterectomy. The patient is still on heparin drip. Cardiothoracic surgeon will make decision about stopping the drip most likely today. 2. Lower extremity weakness. The patient will be sent to rehabilitation center for PT. 3. Hypertension. 4. Hypothyroidism. 5. Depression and anxiety. PLAN: We will continue his aspirin, Plavix, and atorvastatin along with Flomax and metoprolol and most likely, he will be transferred to Telemetry floor after his heparin drip is stopped. Job ID: [id number]
[2018-12-28] MEDS: Tamsulosin HCl 0.4 MG CAP PO SCH (08:38)
[2018-12-28] MEDS: Escitalopram Oxalate 20 mg Tablet PO SCH (08:38)
[2018-12-28] MEDS: Atorvastatin Calcium 40 MG TAB PO SCH (08:38)
[2018-12-28] MEDS: Clopidogrel Bisulfate 75 MG TAB PO SCH (08:38)
[2018-12-28] MEDS: Aspirin 81 mg Enteric Coated Tablet PO SCH (08:38)
--- NOTE | 2018-12-28 10:27 | PRG ---
DATE OF SERVICE: 12/28/2018 SUBJECTIVE: A 73-year-old gentleman, in no distress. OBJECTIVE: VITAL SIGNS: Saturations on room air 95, blood pressure 120/64, respirations 18, and pulse 80. CHEST: Decreased breath sounds. No wheezing. CARDIAC: Normal S1 and S2. No gallops. ABDOMEN: No masses. IMPRESSION: Status post right carotid endarterectomy, hypertension, hypothyroidism. PLAN: The patient is much improved. He is on Plavix and still on heparin drip. Once his drip is discontinued, he can probably be transferred out of the ICU. Pulmonary will follow while in the ICU. One-half hour of critical time. Job ID: [id number]
[2018-12-28] MEDS: Sodium Chloride 0.9% 1,000 ML IV SCH (13:00)
[2018-12-28] MEDS: Temazepam 15 MG CAP PO PRN (20:22)
[2018-12-29] MEDS: hydrALAZINE 20 MG/ML VIAL SLOW IVP PRN (00:06)
[2018-12-29] MEDS: Levothyroxine Sodium 75 MCG TAB PO SCH (05:23)
[2018-12-29] MEDS: Escitalopram Oxalate 20 mg Tablet PO SCH (08:19)
[2018-12-29] MEDS: Clopidogrel Bisulfate 75 MG TAB PO SCH (08:19)
[2018-12-29] MEDS: Tamsulosin HCl 0.4 MG CAP PO SCH (08:19)
[2018-12-29] MEDS: Atorvastatin Calcium 40 MG TAB PO SCH (08:19)
[2018-12-29] MEDS: Aspirin 81 mg Enteric Coated Tablet PO SCH (08:19)
--- NOTE | 2018-12-29 10:13 | PRG ---
DATE OF SERVICE: 12/29/2018 SUBJECTIVE: The patient is seen and examined at the bedside. He is in C3, CCU. He is doing well. There were no any unexpected events overnight. OBJECTIVE: VITAL SIGNS: Blood pressure is 97/60, pulse is 79, temperature is 99.1, respiratory rate is 22, O2 saturation is 100% on room air. HEENT: His head is atraumatic and normocephalic. Eyes are PERRLA. Sclerae are nonicteric. Oral mucosa is moist. NECK: Supple. The incision is healing properly on the right side of the neck. LUNGS: Clear. HEART: S1 and S2 are normal. No S3. No S4. ABDOMEN: Soft and nontender. Bowel sounds are present. No organomegaly. EXTREMITIES: No clubbing, cyanosis, or edema. NEUROLOGIC: He is alert and oriented x3. There are no any motor or sensory deficits present. Cranial nerves are intact. LABORATORY DATA: None today. IMPRESSION: 1. Status post fall and possible transient ischemic attack, most likely secondary to right-sided 90% stenosis in the internal carotid artery, status post right endarterectomy with recurrent slurred speech post procedure and treatment with heparin, which resolved completely. 2. Lower extremity weakness. 3. Hypertension. 4. Hypothyroidism. 5. Depression and anxiety. PLAN: Plan is to transfer him to Stroke Unit today. Get caseworker protective services to work on his rehab transfer. For now, continue his current regimen with Plavix, Lipitor, aspirin, Lexapro, Synthroid, metoprolol, and Flomax, and as soon as his rehab center is approved and arranged, we can transfer him there. Job ID: [id number]
--- NOTE | 2018-12-29 10:15 | PRG ---
DATE OF SERVICE: 12/29/2018 SUBJECTIVE: Peña Sihdu is a 73-year-old gentleman. OBJECTIVE: VITAL SIGNS: Temperature 99, blood pressure 143/53, respiratory rate 18, pulse 80. GENERAL: No shortness of breath. No pain. He was walking yesterday. NECK: Status post right carotid endarterectomy. CHEST: No wheezing or crackles. CARDIAC: Normal S1, S2. No gallops. ABDOMEN: No masses. IMPRESSION: Status post right carotid endarterectomy. PLAN: Disposition home. Job ID: [id number]
[2018-12-29] MEDS: Sodium Chloride 0.9% 1,000 ML IV SCH (12:00)
[2018-12-29] MEDS ORDERED: Bisacodyl 5 MG TAB PO SCH (12:45)
[2018-12-29] MEDS: Acetaminophen 325 MG TAB PO PRN (13:23)
--- NOTE | 2018-12-29 14:49 | PQF ---
CLINICAL DOCUMENTATION IMPROVEMENT CLARIFICATION FORM: ICD-10 Updated PLEASE DO AN ADDENDUM TO THE PROGRESS NOTE WITH ANY DOCUMENTATION UPDATES OR ADDITIONS AND CARRY THROUGH TO DC SUMMARY. THANK YOU. DATE: 12/29/2018 ATTN: Dr. Baez Please exercise your independent, professional judgment in responding to the clarification form. Clinical indicators are provided on the bottom of this form for your review Please check appropriate box(s): [ ] CKD without ARF/ANGEL please specify Stage of CKD (see below) [ ] Acute on Chronic Renal Failure please specify Stage of CKD [ ] Other diagnosis [ ] Unable to determine In addition, please specify: Present on Admission (POA): [ ] Yes [ ] No [ ] Unable to determine For continuity of documentation, please document condition throughout progress notes and discharge summary. Thank You. CLINICAL INDICATORS - SIGNS / SYMPTOMS / LABS 12/23 12/24 12/27 Labs: Creatinine 1.61 1.50 1.35 Estimated GFR 42 46 52 H&P 12/23: Creatinine 1.61 Due to elevated renal function, unable to obtain a CT angiogram RISKS: 12/27 ([place]) PMH: Pertinent for hypertension, renal failure orthostatic hypotension, multiple falls. TREATMENT: MAR: Order 12/24 - 12/26: NS 1,000 ml IV 65 mls/hr Order 12/26: NS 1,000 ml IV 50 mls/hr National Kidney Foundation Guidelines for CKD Staging Stage I Kidney damage with normal or increased GFR GFR > 90 Stage II Kidney damage with mildly decreased GFR GFR 60-89 Stage III Kidney damage with moderately decreased GFR GFR 30-59 Stage IV Kidney damage with severely decreased GFR GFR 16-29 Stage V Kidney failure GFR < 15 ESRD End Stage Renal Disease On dialysis Acute Renal Failure/Acute Kidney Failure defined as: Increases in SCr by (>) 0.3 mg/dl within 48 hours OR- Increases in SCr by (>) 1.5 times baseline, known or presumed to have occurred within the prior 7 days OR- Urine volume < 0.5 ml/kg/hour for 6 hours (KDIGO supplement 2012 for RIFLE/PADDY criteria) Thank you, Shayy (This form is maintained as a part of the permanent medical record) 2014 [employer], [employer]. All Rights Reserved Shayy Donis, RN, BSN [email or web address] Office: [phone] [facility]
[2018-12-29] MEDS: Temazepam 15 MG CAP PO PRN (20:36)
[2018-12-30] MEDS: Levothyroxine Sodium 75 MCG TAB PO SCH (05:58)
[2018-12-30] MEDS: Sodium Chloride 0.9% 1,000 ML IV SCH (06:30)
[2018-12-30] MEDS: Escitalopram Oxalate 20 mg Tablet PO SCH (08:05)
[2018-12-30] MEDS: Tamsulosin HCl 0.4 MG CAP PO SCH (08:05)
[2018-12-30] MEDS: Clopidogrel Bisulfate 75 MG TAB PO SCH (08:06)
[2018-12-30] MEDS: Aspirin 81 mg Enteric Coated Tablet PO SCH (08:06)
[2018-12-30] MEDS: Atorvastatin Calcium 40 MG TAB PO SCH (08:06)
[2018-12-30] MEDS ORDERED: hydrOXYzine 25 MG TAB PO PRN (12:21)
[2018-12-30] MEDS ORDERED: Docusate 100 MG CAP PO PRN (12:22)
[2018-12-30 15:39] VITALS: BP 149/80; TEMP 98.5
--- NOTE | 2018-12-31 02:21 | DIS ---
DATE OF ADMISSION: 12/25/2018 DATE OF DISCHARGE: 12/30/2018 FINAL DIAGNOSES: 1. Transient ischemic attack. 2. Left internal carotid artery occlusion and right internal carotid artery 90% occlusion, status post right endarterectomy. 3. Hypertension. 4. Hypothyroidism. 5. History of several strokes in the past. 6. Depression and anxiety. CONSULTANTS: 1. Dr. Blaine Tierney, Cardiothoracic Surgery. 2. Dr. Yovany Oscar, Neurology. 3. Dr. Jose David Campoverde, Pulmonary/Critical Care. HOSPITAL COURSE: The patient is a 73-year-old male with history of previous CVA x2, who got admitted to the hospital for confusion and unsteadiness, emergency Room evaluation, and he was found to have white count of 6.8, hemoglobin 12.2, hematocrit 37.1, and platelet count 203. Normal electrolytes. Creatinine 1.61. Normal liver function tests. TSH of 0.0102. Normal CK-MB. Also, he had chest x-ray done which did not show any acute abnormalities and CT of the brain showed no acute intracranial findings with involutional changes and chronic ischemic white matter changes, also it showed bilateral upper cerebral old infarctions. The patient got admitted to a stroke unit. He has a history of previous lower extremity weakness and recently he had some falls and brain MRI, which showed cortical atrophy and deep white matter changes with numerous areas of intracranial strokes. Doppler study showed completely occluded left internal carotid artery and severely occluded greater than 70% right internal carotid artery. Cardiothoracic surgeon, Dr. Tierney was consulted and he ordered CT angiogram which confirmed high rate stenosis in the right internal carotid artery and complete occlusion in the left internal carotid artery. The patient underwent right endarterectomy by Dr. Tierney on December 26, 2018 and post operation, he started having some TIA. He was placed on heparin drip and TIA resolved. He was watched for additional 24 hours in the intensive care unit. Followup CT of the brain did not show any acute new findings. Continued on his Plavix and aspirin. He was transferred back to the Stroke Unit, where his stay was uneventful. He was able to walk more than 500 feet. Originally, we plan to send him to inpatient rehab, but he does not qualify for that. He is discharged home in good condition. His blood pressure is 149/69, pulse is 76, temperature is 98.4, respiratory rate is 16, and O2 saturation is 95% on room air. He was seen and examined before his discharge. He was discharged home. Activity, he will take it easy for the next week or so until he sees his primary care physician in 1 week. Also, he will call Dr. Tierney's office and set up followup appointment. I encouraged him to see neurologist, Dr. Oscar. Apparently, he has established with neurologist in [place], but he did not see him for quite some time and he would prefer to have one in this area locally, so he is going to call Dr. Oscar's office and set up followup appointment. DISCHARGE MEDICATIONS: At the time of discharge, his medications are: 1. Levothyroxine 100 mcg once a day. 2. Aspirin 81 mg once a day. 3. Atorvastatin 40 mg at bedtime. 4. Lexapro 20 mg once a day. 5. Metoprolol succinate 50 mg once a day. 6. Flomax 0.4 mg once a day. 7. Temazepam 15 mg at bedtime. 8. Clopidogrel 75 mg once a day. 9. Hydroxyzine 25 mg p.o. as needed. We are going to refer him for outpatient physical therapy for his lower extremity weakness. Time spent on this discharge is less than 30 minutes. Job ID: [id number]
== END 2018-12-30 16:57 | disposition home or self-care (01) | DRG 39 ==
LOC: ERS 20:29 → 2SE 23:00 → ERHOLD 23:00 → 2SE 12-24 13:48 → OBSVTOIN 12-25 14:00 → CCU 12-26 08:05 → 2SE 12-26 16:59 → CCU 12-26 20:36 → 2SE 12-29 18:11
PROVIDERS: ADMIT Hospitalist; ATTEND Hospitalist
PROC: 03CK0ZZ Extirpation of Matter from Right Internal Carotid Artery, Open Approach (ICD-10-PCS; principal; 2018-12-26)
PROC: 03UK0KZ Supplement Right Internal Carotid Artery with Nonautologous Tissue Substitute, Open Approach (ICD-10-PCS; 2018-12-26)
DX: I65.23 Occlusion and stenosis of bilateral carotid arteries (principal); E03.9 Hypothyroidism, unspecified; N40.0 Benign prostatic hyperplasia without lower urinary tract symptoms; F32.9 Major depressive disorder, single episode, unspecified; F41.9 Anxiety disorder, unspecified; Z66 Do not resuscitate; E78.5 Hyperlipidemia, unspecified; I10 Essential (primary) hypertension; Z79.02 Long term (current) use of antithrombotics/antiplatelets; Z96.652 Presence of left artificial knee joint; Z79.82 Long term (current) use of aspirin; Z91.041 Radiographic dye allergy status; Z86.73 Personal history of transient ischemic attack (TIA), and cerebral infarction without residual deficits
CPT/HCPCS: 36415; 36416; 70450; 70498; 70551; 71045; 80048; 80053; 80061; 81001; 82553; 84443; 84484; 85025; 85730; 93005; 93010; 93880; J0360; J0690; J1642; J1644; J2001; J2250; J2370; J2405; J2704; J2720; J3010; J3490

== ENCOUNTER 2019-01-13 15:37 | Emergency (ER) | payer MEDICARE ==
[2019-01-13 16:40] LABS: #Basophils 0.1 thou/uL (0.0-0.2); #Eosinphils 0.9 thou/uL (0.0-0.7); #Lymphocytes 1.4 thou/uL (1.20-3.40); #Monocytes 0.7 thou/uL (0.11-0.59); #Neutrophils 5.2 thou/uL (1.40-6.50); %Lymphocytes 16.6 % (21.0-51.0); %Monocytes 8.2 % (0.0-10.0); %Neutrophils 63.1 % (42.0-75.0); Hemoglobin 11.7 g/dL (14.0-18.0); Mean Corpuscular HGB CONC 31.8 g/dL (32.0-36.0); Mean Corpuscular Hemoglobin 28.2 pg (27.0-31.0); Mean Corpuscular Volume 88.9 fL (78.0-98.0); Mean Platelet Volume 6.3 fL (7.4-10.4); Platelet Count 317 thou/uL (130-400); RBC Distribution Width 13.4 % (11.5-14.5); Red Blood Cell (RBC) Count 4.15 mill/uL (4.70-6.10); White Blood Cell (WBC) Count 8.2 thou/uL (4.8-10.8)
[2019-01-13 16:57] LABS: ALT (SGPT) 25 U/L (8-55); AST (SGOT) 22 U/L (5-34); Albumin 3.9 g/dL (3.4-4.8); Alkaline Phosphatase 63 U/L (40-150); Anion Gap 13 mmol/L (10-20); BUN (Urea Nitrogen) 31 mg/dL (8.4-25.7); Bilirubin, Total 0.4 mg/dL (0.2-1.2); Calc. Creatinine Clearance 0 mL/min (70-130); Calcium 9.6 mg/dL (7.8-10.44); Carbon Dioxide 24 mmol/L (23-31); Chloride 106 mmol/L (98-107); Estimated GFR-MDRD 35; Globulin 2.7 g/dL (2.4-3.5); Glucose 94 mg/dL (83-110); Potassium 4.8 mmol/L (3.5-5.1); Protein, Total 6.6 g/dL (5.8-8.1); Sodium 138 mmol/L (136-145)
== END 2019-01-13 17:32 | disposition home or self-care (01) ==
LOC: SCSER 15:37
DX: I95.1 Orthostatic hypotension (principal); E86.0 Dehydration; E03.9 Hypothyroidism, unspecified; N40.0 Benign prostatic hyperplasia without lower urinary tract symptoms; I10 Essential (primary) hypertension; F32.9 Major depressive disorder, single episode, unspecified; Z86.73 Personal history of transient ischemic attack (TIA), and cerebral infarction without residual deficits
CPT/HCPCS: 80053; 85025; 93005

== ENCOUNTER 2019-07-01 18:44 | Emergency (ER) | payer MEDICARE ==
[~2019-07-01 18:44] MED LIST: ISOVUE-370 76%-LOCM 1 ML ONE
[2019-07-01 19:30] LABS: #Basophils 0.1 thou/uL (0.0-0.2); #Eosinphils 0.9 thou/uL (0.0-0.7); #Lymphocytes 1.2 thou/uL (1.20-3.40); #Monocytes 0.7 thou/uL (0.11-0.59); #Neutrophils 6.5 thou/uL (1.40-6.50); %Basophils 0.6 % (0.0-1.0); %Eosinophils 9.3 % (0.0-10.0); %Lymphocytes 12.6 % (21.0-51.0); %Monocytes 7.9 % (0.0-10.0); %Neutrophils 69.7 % (42.0-75.0); Hemoglobin 14.2 g/dL (14.0-18.0); Mean Corpuscular HGB CONC 32.6 g/dL (32.0-36.0); Mean Corpuscular Hemoglobin 28.4 pg (27.0-31.0); Mean Corpuscular Volume 86.9 fL (78.0-98.0); Mean Platelet Volume 6.5 fL (7.4-10.4); Platelet Count 289 thou/uL (130-400); RBC Distribution Width 12.9 % (11.5-14.5); Red Blood Cell (RBC) Count 5.02 mill/uL (4.70-6.10); White Blood Cell (WBC) Count 9.3 thou/uL (4.8-10.8)
[2019-07-01] MEDS ORDERED: HYDROcodone/Acetaminophen 10/325 mg Tablet ONE (19:33)
[2019-07-01] MEDS ORDERED: Famotidine/PF 20 mg/2ml Vial ONE (19:34)
[2019-07-01] MEDS ORDERED: diphenhydrAMINE 50 MG/ML VIAL ONE (19:34)
[2019-07-01] MEDS ORDERED: methylPREDNISolone Sod Succ/PF 125 MG/2 ML VIAL ONE (19:34)
[2019-07-01] MEDS ORDERED: Cyclobenzaprine 10 MG TAB ONE (19:34)
[2019-07-01 19:48] LABS: ALT (SGPT) 16 U/L (8-55); AST (SGOT) 13 U/L (5-34); Albumin 3.8 g/dL (3.4-4.8); Alkaline Phosphatase 69 U/L (40-110); Anion Gap 15 mmol/L (10-20); BUN (Urea Nitrogen) 20 mg/dL (8.4-25.7); Bilirubin, Total 0.6 mg/dL (0.2-1.2); Calc. Creatinine Clearance 0 mL/min (70-130); Calcium 9.2 mg/dL (7.8-10.44); Carbon Dioxide 22 mmol/L (23-31); Chloride 105 mmol/L (98-107); Estimated GFR-MDRD 54; Globulin 3.1 g/dL (2.4-3.5); Glucose 98 mg/dL (83-110); Protein, Total 6.9 g/dL (5.8-8.1); Sodium 138 mmol/L (136-145)
--- NOTE | 2019-07-01 20:41 | CT ---
EXAM: CTA of the chest and abdomen HISTORY: Back pain COMPARISON: None TECHNIQUE: Multiple contiguous axial images were obtained a CTA of the chest and abdomen with contras t per aortic dissection protocol. Sagittal and coronal 3-D MIP reformats were performed. FINDINGS: HEART: Normal in size without focal cardiac abnormality. Atherosclerotic calcifications in the roland ry arteries. PULMONARY ARTERIES: Normal in caliber without filling defects to suggest pulmonary emboli. MEDIASTINUM: No hilar or mediastinal lymphadenopathy. LUNGS: No focal infiltrates or masses. PLEURAL SPACE: No pleural effusion or pneumothorax. CHEST AND ABDOMINAL WALL SOFT TISSUES: Unremarkable LIVER: Unremarkable. GALLBLADDER: Unremarkable. KIDNEYS: Nonobstructing calcifications in both kidneys measuring up to 5 mm in size.. SPLEEN: Unremarkable. PANCREAS: Unremarkable. BOWEL: Scattered diverticula in the colon.. RETROPERITONEUM: No lymphadenopathy BONES: Degenerative changes in the spine. ASCENDING THORACIC AORTA: Normal caliber without evidence of dissection or aneurysmal dilatation. DESCENDING THORACIC AORTA: Normal caliber without evidence of dissection or aneurysmal dilatation. ABDOMINAL AORTA: Normal caliber without evidence of dissection or aneurysmal dilatation. Moderate dif fuse atherosclerotic disease. CELIAC TRUNK: Patent SMA: Patent JOE: Patent RENAL ARTERIES: 2 right and one left renal arteries without significant atherosclerotic disease A stent is seen in the right common iliac artery. IMPRESSION: 1. No evidence of thoracic or abdominal aortic aneurysm or dissection. Moderate atherosclerotic disea se is seen in the aorta. 2. Bilateral nephrolithiasis
== END 2019-07-01 21:39 | disposition home or self-care (01) ==
LOC: ERS 18:44
DX: M54.5 Low back pain (principal); E03.9 Hypothyroidism, unspecified; I10 Essential (primary) hypertension; F32.9 Major depressive disorder, single episode, unspecified; Z86.73 Personal history of transient ischemic attack (TIA), and cerebral infarction without residual deficits; Z79.899 Other long term (current) drug therapy; Z79.82 Long term (current) use of aspirin
CPT/HCPCS: 36415; 71275; 72191; 74175; 80053; 85025; 96374; 96375; J1200; J2930; Q9966; S0028

== ENCOUNTER 2019-07-03 16:56 | Inpatient (IN) | payer MEDICARE ==
[~2019-07-03 16:56] MED LIST changes: +Heparin 1,000 UNITS/ML VIAL ONE; -ISOVUE-370 76%-LOCM 1 ML ONE
[2019-07-03] MEDS ORDERED: Ondansetron PF 4 MG/2 ML Vial ONE (17:56)
[2019-07-03] MEDS ORDERED: Morphine 4 MG/ML VIAL ONE (17:56)
--- NOTE | 2019-07-03 18:33 | RAD ---
EXAM: CHEST ONE VIEW HISTORY: Preoperative evaluation. COMPARISON: 12/23/2018 FINDINGS: The cardiac silhouette and pulmonary vasculature is within normal limits. The lungs are clear. Degene rative changes are again seen in the spine. Thoracic aorta remains ectatic. There has been no significant interval change from the prior exam. IMPRESSION: No acute cardiopulmonary process.
[2019-07-03 18:40] LABS: #Basophils 0.1 thou/uL (0.0-0.2); #Eosinphils 0.1 thou/uL (0.0-0.7); #Lymphocytes 0.9 thou/uL (1.20-3.40); #Monocytes 0.4 thou/uL (0.11-0.59); %Basophils 0.6 % (0.0-1.0); %Eosinophils 0.8 % (0.0-10.0); %Lymphocytes 7.3 % (21.0-51.0); %Monocytes 3.5 % (0.0-10.0); %Neutrophils 87.8 % (42.0-75.0); Hemoglobin 13.3 g/dL (14.0-18.0); Mean Corpuscular HGB CONC 32.5 g/dL (32.0-36.0); Mean Corpuscular Hemoglobin 28.2 pg (27.0-31.0); Mean Corpuscular Volume 86.7 fL (78.0-98.0); Mean Platelet Volume 6.6 fL (7.4-10.4); Platelet Count 312 thou/uL (130-400); RBC Distribution Width 13.1 % (11.5-14.5); Red Blood Cell (RBC) Count 4.72 mill/uL (4.70-6.10); White Blood Cell (WBC) Count 12.5 thou/uL (4.8-10.8)
[2019-07-03 18:45] LABS: INR-International Normal Ratio 1.2; PTT 32.7 SEC (22.9-36.1); Prothrombin Time 15.1 SEC (12.0-14.7)
[2019-07-03 19:03] LABS: ALT (SGPT) 20 U/L (8-55); AST (SGOT) 23 U/L (5-34); Albumin 3.9 g/dL (3.4-4.8); Alkaline Phosphatase 72 U/L (40-110); Anion Gap 13 mmol/L (10-20); BUN (Urea Nitrogen) 30 mg/dL (8.4-25.7); Bilirubin, Total 0.4 mg/dL (0.2-1.2); CK (CPK) 386 U/L (30-200); Calc. Creatinine Clearance 0 mL/min (70-130); Carbon Dioxide 23 mmol/L (23-31); Chloride 106 mmol/L (98-107); Estimated GFR-MDRD 38; Globulin 3.1 g/dL (2.4-3.5); Glucose 112 mg/dL (83-110); Potassium 4.4 mmol/L (3.5-5.1); Sodium 138 mmol/L (136-145)
[2019-07-03] MEDS ORDERED: Piperacillin/Tazobactam 4.5 GM VIAL ONE (19:03)
[2019-07-03 20:09] LABS: Bacteria/HPF None Seen HPF (None Seen); Bilirubin Negative (Negative); Blood, Urine Trace (Negative); Clarity Clear (Clear); Glucose, Urine (Dipstick) Normal (Negative); Leukocyte Negative Leu/uL (Negative); Nitrite Negative (Negative); Protein, Urine (Dipstick) 10 mg/dL (Neg-Trace); RBC/HPF 0-3 HPF (0-3); Squamous Epithelial None Seen HPF (0-3); Urobilinogen Normal mg/dL (Less than 2); WBC/HPF 0-3 HPF (0-3)
[2019-07-03] MEDS ORDERED: Nitroglycerin 2% Ointment 1 INCH/1 GM Packet ONE (20:38)
[2019-07-03] MEDS ORDERED: Morphine 4 MG/ML VIAL SLOW IVP PRN (21:11)
[2019-07-03] MEDS ORDERED: Sodium Chloride 0.9% 1,000 ML IV SCH (21:15)
[2019-07-03] MEDS ORDERED: Acetaminophen 325 MG TAB PO PRN (21:27)
[2019-07-03] MEDS ORDERED: Vancomycin HCl 1 GM in Premix Bag 1 BAG IVPB SCH ×2 (21:27→23:30)
[2019-07-03] MEDS ORDERED: Famotidine 20 MG TAB PO SCH (21:30)
[2019-07-03 23:21] VITALS: BMI 29.5
[2019-07-04] MEDS ORDERED: Temazepam 15 MG CAP PO PRN (00:29)
--- NOTE | 2019-07-04 01:04 | CON ---
DATE OF CONSULTATION: HISTORY OF PRESENT ILLNESS: Mr. Sidhu presented to the emergency department this evening following outpatient MRI ordered by his primary care physician. Mr. Sidhu has had approximately 5 weeks of left-sided low back pain with occasional radiating pain in the posterior thigh on the left side. This has been significantly worse earlier in the week and he was in the emergency room on Saturday, the and was sent home with negative imaging studies. Followup with primary care today prompted MRI, which showed some small areas of possible diskitis or osteomyelitis and was sent back to the emergency department for further workup. Neurosurgery was consulted. I have seen Mr. Sidhu in the ER. He is resting comfortably. He states that he has had some left-sided low back pain and radiating pain into the back of his left leg, nothing into his lower leg or foot. No numbness, or tingling. No bowel or bladder dysfunction. No saddle anesthesia. He does have history of a couple of cysts under skin, one on the anterior chest and one on the thoracic back. He does take Plavix. No fever or chills reported. He fell yesterday due to a dizzy spell. Denies hitting his head. Otherwise, the patient is alert and oriented. No upper extremity weakness or change in sensation. REVIEW OF SYSTEMS: A 10-point review of systems has been completed and is negative other than stated in the above HPI. ALLERGIES: IODINE CONTRAST, SHELLFISH CONTAINING PRODUCTS. PAST MEDICAL HISTORY: Includes hypothyroidism, benign prostate hypertrophy, hypertension, history of 2 strokes, cerebrovascular accident with clogged left carotid artery. PAST SURGICAL HISTORY: Left knee and carotid thrombectomy. SOCIAL HISTORY: Denies alcohol use, drug use. No smoking history. Lives at home with his . PHYSICAL EXAMINATION: VITAL SIGNS: Blood pressure 185/102, heart rate 97, respirations 16, temperature 98.4, O2 sats 95% on room air. CONSTITUTIONAL: The patient is alert and oriented x3. He is afebrile, hypertensive, appears nontoxic. HEENT. Head is normocephalic and atraumatic. Pupils are equal, round, and reactive to light. Extraocular movements are intact. Hearing is intact. Moist mucous membranes. RESPIRATIONS: Normal work of breathing on room air. Symmetric chest rise. EXTREMITIES.: 5/5 strength in deltoids, biceps, triceps, turner off strength bilaterally. Lower extremities 5/5 strength in hip flexion, knee flexion, extension, dorsiflexion, plantar flexion, EHL. There are no sensory changes bilaterally. NEUROLOGIC: The patient is awake, alert, oriented x3. Speech is spontaneous and fluent. Normal fund of knowledge. Cranial nerves 2 through 12 are tested and intact. There are no lateralizing motor or sensory deficits. No clonus. No Babinski. IMAGING STUDIES: [facility] There is evidence of diskitis at L3-4 and osteomyelitis with prevertebral and peridiscal infection including multiple microabscesses and left psoas muscle myositis with associated bilateral foraminal stenosis and multilevel degenerative changes. ASSESSMENT AND PLAN: Mr. Sidhu is a 73-year-old male with lumbar osteomyelitis and diskitis, back pain. Reviewing the imaging, there is no significant compression on the nerves. He is not having any symptoms of cauda equina. There are no motor or sensory deficits. No saddle anesthesia, bowel or bladder issues. At this time, we do not recommend any surgical intervention. Recommend workup with the Hospitalist and Infectious Disease. If there are any neurologic decline, or unable to obtain a sample of bacteria and needing a biopsy, can reconsult Neurosurgery. Job ID: [id number]
[2019-07-04] MEDS: Labetalol HCl 100 MG/20 ML VIAL SLOW IVP PRN (01:18)
--- NOTE | 2019-07-04 01:34 | HP ---
PRIMARY CARE PHYSICIAN: . CHIEF COMPLAINT: Severe back pain. HISTORY OF PRESENT ILLNESS: Mr. Sidhu is a very pleasant 73-year-old gentleman, who has a history of peripheral vascular disease. He says that he was in his usual state of health until about 5 weeks ago when he says he has started feeling something was stabbing in his back. He said the pain got progressively worse and worse to the point where he could hardly get dressed and the pain was extremely severe. He says over the last 2 weeks , it got even worse. He denies having any fever or chills. No nausea. No vomiting. He had noted some constipation, but no difficulty with his bowel or bladder function. He says he has a history of having a previous stroke and has had leg weakness since then, but otherwise no complaints of any new extremity weakness. He went to see his primary care physician who sent him to the [facility] to have an MRI done of his lower back and it was found that he had some small epidural abscesses in the lumbar region and was requested to come to the ER for admission. Otherwise, the patient denies any other complaint. No chest pain. No shortness of breath. No PND. No orthopnea. Prior to him having back pain, he used to be fairly active. REVIEW OF SYSTEMS: All systems were reviewed and are negative except for that mentioned in the history of present illness. PAST MEDICAL HISTORY: Significant for previous cerebral vascular accident as well as peripheral vascular disease. PAST SURGICAL HISTORY: He has had a left knee replacement. ALLERGIES: INCLUDE IODINE. SOCIAL HISTORY: He lives with his daughter. He denies any drug use, tobacco use or alcohol. He is a full code and is . He would like for his daughter, Luma to be his surrogate decision maker. FAMILY HISTORY: Unknown. Everybody lived into their 90s. CURRENT MEDICATIONS: Include: 1. Plavix 75 mg daily. 2. Flomax 0.4 mg daily. 3. Hydroxyzine 25 mg as needed. 4. Lipitor 40 mg daily. 5. Levothyroxine 100 mcg p.o. daily. 6. Aspirin 81 mg daily. 7. Fluoxetine 20 mg daily. 8. Temazepam 15 mg daily. 9. Flexeril 10 mg every 8 hours as needed. 10. Lidoderm patch. PHYSICAL EXAMINATION: GENERAL: He is alert and oriented. He appears to be in no acute distress. He is well developed and well nourished. VITAL SIGNS: Blood pressure was 185/102, heart rate 97, respiratory rate of 16, temperature was 98. His current blood pressure is 155/100. HEENT: Pupils are equal, round, and reactive to light. Extraocular muscles are intact. His sclerae anicteric. THROAT: There is no erythema, no exudates. NECK: No adenopathy, no bruits. LUNGS: Clear to auscultation. There was no wheezing, no rales, no rhonchi. CARDIOVASCULAR: He has a normal S1 and S2. There is no S3 or S4. No murmurs, clicks, or rubs. ABDOMEN: Obese it is soft, nontender, and nondistended. Positive for bowel sounds. There is no rebound, no guarding, no organomegaly. EXTREMITIES: There is no clubbing, cyanosis, no edema. NEUROLOGIC: His muscle strength is 5/5 in both his upper and lower extremities. His reflexes were symmetric; however it was a bit equivocal on the left. It was slightly diminished at the patellar. He does have some hammertoe deformities. SKIN AND INTEGUMENT: No other significant skin changes. No rash. LABORATORY DATA: Current lab results, the white blood cell count is 12.5, hemoglobin 13.3, hematocrit is 40.9, and platelet count is 312. INR is 1.2, and chemistry panel is currently pending. ASSESSMENT: 1. This is a pleasant 73-year-old gentleman, who has been having severe back pain, which has gotten progressively worse over the past 5 weeks. He was evaluated by his primary care physician and found to have an epidural abscess. He has already been evaluated by Neurosurgery and it is felt that this is a nonsurgical issue. He will therefore be admitted to the medical floor. We will start him on empiric IV antibiotics. We will continue vancomycin and Zosyn. Consult ID for evaluation and likely he will need a PICC line placed for long-term IV antibiotics. 2. Peripheral vascular disease. We will continue the Plavix since there is no plan for surgery as well as his low-dose aspirin. 3. He will be placed on deep venous thrombosis prophylaxis. 4. Depression. Continue fluoxetine. 5. Probable BPH. Continue Flomax. Job ID: [id number]
[2019-07-04] MEDS: Piperacillin/Tazobactam 3.375 GM in Sodium Chloride 0.9% 100 ML IVPB SCH ×3 (02:29→13:21)
[2019-07-04] MEDS ORDERED: Piperacillin/Tazobactam 4.5 GM in Sodium Chloride 0.9% 100 ML IVPB SCH (04:00)
[2019-07-04] MEDS: hydrALAZINE 20 MG/ML VIAL SLOW IVP PRN (04:35)
[2019-07-04 05:13] LABS: #Lymphocytes 0.9 thou/uL (1.20-3.40); #Monocytes 0.5 thou/uL (0.11-0.59); %Basophils 0.4 % (0.0-1.0); %Eosinophils 0.3 % (0.0-10.0); %Lymphocytes 9.9 % (21.0-51.0); %Monocytes 4.9 % (0.0-10.0); %Neutrophils 84.5 % (42.0-75.0); Hemoglobin 11.7 g/dL (14.0-18.0); Mean Corpuscular HGB CONC 32.5 g/dL (32.0-36.0); Mean Corpuscular Hemoglobin 28.3 pg (27.0-31.0); Mean Platelet Volume 6.7 fL (7.4-10.4); Platelet Count 291 thou/uL (130-400); RBC Distribution Width 13.1 % (11.5-14.5); Red Blood Cell (RBC) Count 4.15 mill/uL (4.70-6.10); White Blood Cell (WBC) Count 9.5 thou/uL (4.8-10.8)
[2019-07-04 05:54] LABS: Anion Gap 13 mmol/L (10-20); BUN (Urea Nitrogen) 24 mg/dL (8.4-25.7); Calc. Creatinine Clearance 71 mL/min (70-130); Calcium 8.6 mg/dL (7.8-10.44); Carbon Dioxide 24 mmol/L (23-31); Chloride 106 mmol/L (98-107); Estimated GFR-MDRD 50; Glucose 142 mg/dL (83-110); Potassium 3.8 mmol/L (3.5-5.1); Sodium 139 mmol/L (136-145)
[2019-07-04] MEDS: HYDROcodone/Acetaminophen 5/325 mg Tablet PO PRN ×3 (05:54→17:42)
[2019-07-04] MEDS ORDERED: Vancomycin HCl 1 GM in Premix Bag 1 BAG IVPB SCH (06:00)
[2019-07-04] MEDS ORDERED: Levothyroxine Sodium 100 MCG TAB PO SCH (06:00)
[2019-07-04] MEDS: Tamsulosin HCl 0.4 MG CAP PO SCH (07:51)
[2019-07-04] MEDS: Atorvastatin Calcium 40 MG TAB PO SCH (07:51)
[2019-07-04] MEDS: Enoxaparin Sodium 40 MG/0.4 ML SYRINGE SC SCH (07:51)
[2019-07-04] MEDS: Aspirin 81 mg Enteric Coated Tablet PO SCH (07:51)
[2019-07-04] MEDS: hydrALAZINE 25 MG TAB PO PRN ×2 (08:49→16:35)
[2019-07-04] MEDS ORDERED: Clopidogrel Bisulfate 75 MG TAB PO SCH (09:00)
[2019-07-04] MEDS ORDERED: Escitalopram Oxalate 20 mg Tablet PO SCH (09:00)
--- NOTE | 2019-07-04 12:23 | PDOC.HOSPP ---
- Subjective Encounter Date: 07/04/19 Encounter Time: 12:00 Subjective: The patient reports severe left sided leg pain when standing up. He is having difficulty ambulating to the bathroom because of this. He has no bowel or bladder incontinence. Patient denies IV drug use, any recent surgeries or infections, denies any open wounds ID consult pending - Objective Vital Signs & Weight: Vital Signs (12 hours) Temp Pulse Resp BP BP BP Pulse Ox 07/04/19 11:47 97.8 F 78 19 148/81 H 96 07/04/19 08:49 79 07/04/19 07:20 98.4 F 79 19 192/80 H 95 07/04/19 06:00 182/85 H 07/04/19 04:35 80 190/95 H 07/04/19 02:40 183/85 H 07/04/19 01:18 89 191/97 H Weight Weight 230 lb 6.4 oz Result Diagrams: 07/04/19 04:33 07/04/19 04:33 Hospitalist ROS - Review of Systems Constitutional: denies: fever, chills - Medication Medications: Active Medications Generic Name Dose Route Start Last Admin Trade Name Freq PRN Reason Stop Dose Admin Hydrocodone Bitart/Acetaminophen 1 tab 07/03/19 21:27 07/04/19 05:54 [place] 5/325 PO 1 tab Q4H PRN Administration Moderate Pain (4-6) Aspirin 81 mg 07/04/19 09:00 07/04/19 07:51 Ecotrin PO 81 mg DAILY SKYLER Administration Atorvastatin Calcium 40 mg 07/04/19 09:00 07/04/19 07:51 Lipitor PO 40 mg DAILY SKYLER Administration Clopidogrel Bisulfate 75 mg 07/04/19 09:00 07/04/19 07:51 Plavix PO 75 mg DAILY SKYLRE Administration Enoxaparin Sodium 40 mg 07/04/19 09:00 07/04/19 07:51 Lovenox SC 40 mg 0900 SKYLER Administration Hydralazine HCl 25 mg 07/03/19 19:09 07/04/19 08:49 Apresoline PO 25 mg TIDPRN PRN Administration SBP Greater Than 170 Hydralazine HCl 10 mg 07/03/19 21:27 07/04/19 04:35 Apresoline SLOW IVP 10 mg Q4H PRN Administration SBP > 180 and HR < 70 Piperacillin Sod/Tazobactam 100 mls @ 200 mls/hr 07/04/19 02:00 07/04/19 07: 50 Sod 3.375 gm/ Sodium Chloride IVPB 100 mls 0200,0800,1400,2000 SKYLER Administration Labetalol HCl 20 mg 07/03/19 21:27 07/04/19 01:18 Normodyne SLOW IVP 4 ml Q4H PRN Administration SBP > 180 and HR >/= 70 Tamsulosin HCl 0.4 mg 07/04/19 09:00 07/04/19 07:51 Flomax PO 0.4 mg DAILY SKYLER Administration - Exam General Appearance: NAD, awake alert Eye: PERRL, anicteric sclera ENT: normocephalic atraumatic, no oropharyngeal lesions Neck: supple, symmetric, no JVD Heart: RRR, no murmur, no rubs Respiratory: CTAB, no wheezes Gastrointestinal: soft, non-tender, non-distended, normal bowel sounds Extremities: no cyanosis, no clubbing, no edema Skin: normal turgor, no lesions, no rashes Neurological: cranial nerve grossly intact, normal sensation to touch Neurological - other findings: Patient has pain when lifting up the left leg on straight raise test Musculoskeletal: normal strength. negative: no muscle wasting Hosp A/P - Plan EKG: normal sinus rhythm MRI: unable to see report, but showed diskitis or osteomyelitis \ This is 73 year old male with PMh of hypothyroidi, BPH, hypertension, two strokes, CVA who presented with left sided radiculopar pain, found to have possible diskitis or osteomyelitis #Osteomyelitis versus diskitis #Left leg radiculopathy - had WBC of 12.5 on admission, currently on vancomycin and zosyn. Blood cultures negative to date - ID consult pending with regards to prolonged antibiotic course and PICC line - neurosurgery saw the patient, no need for intervention at this time #Anemia - Hb 11.7, check B12 and folate CKD - creatinine 1.40 at baseline DVT prophylaxis: hold for now in case any biopsy needed Code status: full code
[2019-07-04] MEDS ORDERED: Gabapentin 300 MG CAP PO SCH (12:30)
[2019-07-04] MEDS ORDERED: Polyethylene Glycol 3350 17 GM Packet PO PRN (12:30)
--- NOTE | 2019-07-04 16:34 | CON ---
DATE OF CONSULTATION: 07/04/2019 REASON FOR CONSULTATION: Epidural abscess with osteomyelitis, lumbosacral spine. HISTORY OF PRESENT ILLNESS: A 73-year-old with history of hypothyroidism, BPH, and prior CVAs with endarterectomy, who developed progressively worsening back pain over the past 5 weeks and was given prednisone for a while with moderate improvement and then recrudescence, and subsequently, had an MRI elsewhere, which showed L3-L4 inflammatory process. The patient is admitted for management. No headaches. No visual symptoms, sore throat, odynophagia, dysphagia. No neck pain. No thoracic spine pain. No dyspnea or chest pain. No abdominal pain or diarrhea. No genitourinary symptoms. He has sensation of unsteadiness of gait particularly because of pain, which appears to have a characteristic of radiculopathy. MEDICAL HISTORY: As above, includes hypothyroidism, BPH, hypertension, prior CVA x2, endarterectomy. He also had a left knee arthroplasty in [place]. SOCIAL HISTORY: No alcoholic beverage use. He denies any smoking history. ALLERGIES: IODINE CONTRAST. MEDICATIONS: 1. Plavix. 2. Flomax. 3. Hydroxyzine. 4. Lipitor. 5. Levothyroxine. 6. Aspirin. 7. Fluoxetine. 8. Temazepam. 9. Flexeril. 10. Lidoderm. 11. Here he is receiving also Zosyn and vancomycin. PHYSICAL EXAMINATION: VITAL SIGNS: T-max 98.4, blood pressure 140/80, pulse 78, respirations 19, and O2 saturation 96. SKIN: No significant areas of skin breakdown. Peripheral IV access is voiding in the toilet. No lymphadenopathy. HEENT: Ocular movements conjugate. Oral cavity with numerous missing teeth. Only one or two remaining in place. NECK: Supple. No jugular venous distention or carotid bruits. No thyromegaly. LUNGS: Symmetric. Clear breath sounds. S1 and S2. Regular rate. No S3 or S4. ABDOMEN: Soft. Not distended or tender. No ascites. No bladder distention. No genital abnormalities. EXTREMITIES: Pulses are 1+ in dorsalis pedis. No joint inflammatory activity noted. Able to move extremities on command. NEUROLOGIC: He is awake and oriented. Follows commands. LABORATORY DATA: White cell count 12.5 and 9.5, hemoglobin 13.3 and 11.7, platelets 291, and 84% neutrophils. INR 1.2. Sodium 139, creatinine 1.4. His prior creatinine avinash 1.3 and the peak of 1.7. Lactic acid 1.2. CRP 3.7. Liver functions are within normal limits. Albumin 3.9, globulin 3.1. B12 is low at 197, folate 9.6. Urinalysis essentially normal. Two sets of blood cultures pending. Urine culture, no growth at 24 hours. There is a chest x-ray from this admission with no acute cardiopulmonary process identified. CT dissection protocol from 2 days ago was negative except for bilateral nephrolithiasis. There is a brain MRI from December of this year, which showed cortical atrophy, deep white matter ischemic changes. Numerous old areas of intracranial CVAs. ASSESSMENT: Hypertension, hypothyroidism, benign prostatic hyperplasia, and newly identified lumbosacral spine infection. DISCUSSION: I need to obtain the images to evaluate the eligibility for percutaneous aspirate for microbiology identification. Usual pathogens involved in this sort of process include Staphylococcus aureus, streptococci gram-negative rods, Enterococci. The coagulase-negative staphylococci and Propionibacterium also involved sometimes. Fungal pathogens are much less likely to be involved in this community-acquired process. Most of those cases are not eligible for specific microbiology identification due to lack of an area of that can be aspirated, and we will have to review the images from the MRI that was done elsewhere to determine if he would be a candidate for that procedure or not. If not, then we will proceed with Rocephin and vancomycin for 6 weeks at least maybe longer. Followup CRP and imaging studies, but the main endpoint will be resolution of pain. Sometimes they have a psoas muscle abscess associated with this type of process. In a minority of cases, the patient require surgical intervention due to persistence of pain despite antimicrobial therapy administration. Most cases are manageable with medical therapy alone. Job ID: [id number]
[2019-07-04] MEDS: cefTRIAXone\\ROCEPHIN 2 GM in Sodium Chloride 0.9% 100 ML IVPB SCH (16:36)
[2019-07-04] MEDS: Gabapentin 300 MG CAP PO SCH (20:43)
[2019-07-04] MEDS: Famotidine 20 MG TAB PO SCH (20:43)
[2019-07-04] MEDS: Senokot S 8.6-50 MG TAB PO SCH (20:43)
[2019-07-04] MEDS: Levothyroxine Sodium 100 MCG TAB PO SCH (20:44)
[2019-07-04] MEDS ORDERED: Vancomycin 1.5 GRAM/300 ML BAG 1.5 GM in Premix Bag 1 BAG IVPB SCH (21:00)
[2019-07-04] MEDS: HYDROcodone/Acetaminophen 10/325 mg Tablet PO PRN (21:36)
[2019-07-05] MEDS: Labetalol HCl 100 MG/20 ML VIAL SLOW IVP PRN ×2 (00:18→23:48)
[2019-07-05] MEDS: hydrALAZINE 20 MG/ML VIAL SLOW IVP PRN (02:18)
[2019-07-05] MEDS: HYDROcodone/Acetaminophen 10/325 mg Tablet PO PRN ×3 (02:18→11:38)
[2019-07-05 07:10] LABS: Hemoglobin 13.1 g/dL (14.0-18.0); Mean Corpuscular HGB CONC 31.1 g/dL (32.0-36.0); Mean Corpuscular Hemoglobin 28.5 pg (27.0-31.0); Mean Corpuscular Volume 91.6 fL (78.0-98.0); Mean Platelet Volume 6.6 fL (7.4-10.4); Platelet Count 288 thou/uL (130-400); RBC Distribution Width 13.6 % (11.5-14.5); Red Blood Cell (RBC) Count 4.61 mill/uL (4.70-6.10); White Blood Cell (WBC) Count 11.2 thou/uL (4.8-10.8)
[2019-07-05 07:21] LABS: Anion Gap 15 mmol/L (10-20); BUN (Urea Nitrogen) 18 mg/dL (8.4-25.7); Calc. Creatinine Clearance 71 mL/min (70-130); Calcium 8.9 mg/dL (7.8-10.44); Carbon Dioxide 21 mmol/L (23-31); Chloride 107 mmol/L (98-107); Estimated GFR-MDRD 50; Glucose 88 mg/dL (83-110); Potassium 4.7 mmol/L (3.5-5.1); Sodium 138 mmol/L (136-145)
[2019-07-05] MEDS: Tamsulosin HCl 0.4 MG CAP PO SCH (08:18)
[2019-07-05] MEDS: Senokot S 8.6-50 MG TAB PO SCH ×2 (08:18→20:18)
[2019-07-05] MEDS: hydrALAZINE 25 MG TAB PO PRN (08:19)
[2019-07-05] MEDS: Aspirin 81 mg Enteric Coated Tablet PO SCH (08:19)
[2019-07-05] MEDS: Atorvastatin Calcium 40 MG TAB PO SCH (08:19)
[2019-07-05] MEDS: Gabapentin 300 MG CAP PO SCH ×4 (08:19→20:18)
[2019-07-05] MEDS: Enoxaparin Sodium 40 MG/0.4 ML SYRINGE SC SCH (08:20)
[2019-07-05 10:24] LABS: Vancomycin, Trough 14.2 ug/mL
[2019-07-05] MEDS: Vancomycin HCl 1.25 GM in Sodium Chloride 0.9% 250 ML 250 ML IVPB SCH ×2 (11:39→22:59)
[2019-07-05] MEDS ORDERED: Gabapentin 300 MG CAP PO SCH (12:00)
--- NOTE | 2019-07-05 13:00 | CT ---
Exam: Pelvic CT scan without IV contrast: HISTORY: Severe left hip pain following a fall out of bed FINDINGS: Minimal bony demineralization. Arthrosis and degenerative changes of both hip joints. No evidence for acute hip or pelvis fracture. There is noted to be abnormal appearing L3-L4 disc with irregular disc narrowing and peridiscal bony erosive changes of L3 and L4 with some perivertebral soft tissue and fat stranding changes concerning for discitis and possible associated osteomyelitis, age of this is indeterminate from this study, this certainly could be acute, if that is a clinical concern, follow-up lumbar spine MRI with and without contrast should be considered. IMPRESSION: No evidence for acute pelvic or left hip fracture. Evidence for age indeterminant discitis and possibly osteomyelitis involving the L3-L4 disc level, if that is a concern and felt to be a new finding, follow-up lumbar spine MRI with and without IV contrast might be of benefit.
[2019-07-05] MEDS: hydrALAZINE 25 MG TAB PO SCH ×2 (15:42→20:18)
[2019-07-05] MEDS: cefTRIAXone\\ROCEPHIN 2 GM in Sodium Chloride 0.9% 100 ML IVPB SCH (15:43)
--- NOTE | 2019-07-05 16:36 | PDOC.HOSPP ---
- Subjective Encounter Date: 07/05/19 Encounter Time: 15:00 Subjective: The patient this morning had a fall as he was trying to get out of bed. He landed on his left hip. The patient states that he continues to have severe back pain, no tingling or numbness in his extremities. He denies bowel or bladder incontinence. CT of hip showing L3-L4 osteomyelitis. Patient's gabapentin dose increased to 600 mg, patient had some pain relief with this and slept better. He had no relief with 10 of hydrocodone - Objective Vital Signs & Weight: Vital Signs (12 hours) Temp Pulse Resp BP BP Pulse Ox 07/05/19 16:24 98.0 F 100 20 202/101 H 95 07/05/19 15:42 98 178/104 H 07/05/19 12:21 97.5 F L 98 20 127/69 96 07/05/19 08:19 88 184/112 H 07/05/19 08:00 93 L 07/05/19 07:43 97.6 F 88 20 184/112 H 93 L Weight Weight 230 lb 6.4 oz I&O: 07/04/19 07/05/19 07/06/19 06:59 06:59 06:59 Intake Total 1020 Balance 1020 Result Diagrams: 07/05/19 06:49 07/05/19 06:49 Hospitalist ROS - Review of Systems Constitutional: denies: fever, chills Other: no bowel or bladder incontinence - Medication Medications: Active Medications Generic Name Dose Route Start Last Admin Trade Name Freq PRN Reason Stop Dose Admin Acetaminophen 650 mg 07/03/19 21:27 07/04/19 12:31 Tylenol PO 650 mg Q4H PRN Administration Headache/Fever/Mild Pain (1-3) Aspirin 81 mg 07/04/19 09:00 07/05/19 08:19 Ecotrin PO 81 mg DAILY SKYLER Administration Atorvastatin Calcium 40 mg 07/04/19 09:00 07/05/19 08:19 Lipitor PO 40 mg DAILY SKYLER Administration Enoxaparin Sodium 40 mg 07/04/19 09:00 07/05/19 08:20 Lovenox SC 40 mg 0900 SKYLER Administration Famotidine 20 mg 07/04/19 21:00 07/04/19 20:43 Pepcid PO 20 mg Q24HR SKYLER Administration Gabapentin 300 mg 07/04/19 21:00 07/05/19 15:42 Neurontin PO Not Given TID SKYLER Gabapentin 600 mg 07/05/19 15:00 07/05/19 15:41 Neurontin PO 600 mg TID SKYLER Administration Hydralazine HCl 10 mg 07/03/19 21:27 07/05/19 02:18 Apresoline SLOW IVP 10 mg Q4H PRN Administration SBP > 180 and HR < 70 Hydralazine HCl 25 mg 07/05/19 15:00 07/05/19 15:42 Apresoline PO 25 mg TID SKYLER Administration Ceftriaxone Sodium 2 gm/ 100 mls @ 200 mls/hr 07/04/19 16:00 07/05/19 15:43 Sodium Chloride IVPB 100 mls 1600 SKYLER Administration Vancomycin HCl 1.25 gm/ Sodium 250 mls @ 166.667 mls/hr 07/05/19 11:00 11:39 Chloride IVPB 250 mls 1100,2300 SKYLER Administration Labetalol HCl 20 mg 07/03/19 21:27 07/05/19 00:18 Normodyne SLOW IVP 4 ml Q4H PRN Administration SBP > 180 and HR >/= 70 Levothyroxine Sodium 100 mcg 07/04/19 21:00 07/04/19 20:44 Synthroid PO 100 mcg 2100 SKYLER Administration Senna/Docusate Sodium 1 tab 07/04/19 21:00 07/05/19 08:18 Senokot S PO 1 tab BID SKYLER Administration Tamsulosin HCl 0.4 mg 07/04/19 09:00 07/05/19 08:18 Flomax PO 0.4 mg DAILY SKYLER Administration - Exam General Appearance: NAD, awake alert Eye: PERRL, anicteric sclera ENT: normocephalic atraumatic, no oropharyngeal lesions Neck: supple, no JVD Heart: RRR, no murmur, no gallops, no rubs Respiratory: CTAB, no wheezes, no rales, no ronchi Gastrointestinal: soft, non-tender, non-distended, normal bowel sounds Extremities: no cyanosis, no clubbing, no edema Skin: normal turgor, no lesions, no rashes Neurological: cranial nerve grossly intact, normal sensation to touch, no focal deficits, no new deficit Musculoskeletal: normal tone, normal strength, no muscle wasting Musculoskeletal - other findings: positive straight leg test on left Psychiatric: normal affect, A&O x 3 Hosp A/P - Plan EKG: normal sinus rhythm MRI: unable to see report, but showed diskitis or osteomyelitis CT hip: L3-L4 osteomyelitis This is 73 year old male with PMh of hypothyroidi, BPH, hypertension, two strokes, CVA who presented with left sided radiculopar pain, found to have possible diskitis or osteomyelitis #L3-L4 Osteomyelitis versus diskitis #Left leg radiculopathy - had WBC of 12.5 on admission, currently on vancomycin and ceftriaxone. Blood cultures negative to date - per ID, patient had multiple microabscesses on MRI as outpatient. This not amenable to biopsy. Will need 6 weeks of IV antibiotics, PICC line ordered - neurosurgery saw the patient, no need for surgical intervention at this time - for pain switching to oxycodone 5 mg q4 hours prn - increase gabapentin to 600 mg tid - ordered lidocaine patch #Vitamin B12 deficiency Anemia - B12 low at 197 - starting vitamin B12 2000 mcg daily CKD - creatinine 1.39 at baseline DVT prophylaxis: SCDS due to high risk of falls Code status: full code
[2019-07-05] MEDS: oxyCODONE 5 MG TAB PO PRN (17:13)
[2019-07-05] MEDS: Famotidine 20 MG TAB PO SCH (20:18)
[2019-07-05] MEDS: Levothyroxine Sodium 100 MCG TAB PO SCH (20:18)
[2019-07-06] MEDS: Promethazine 25 MG TAB PO PRN ×2 (03:04→09:21)
[2019-07-06 05:49] LABS: Hemoglobin 13.6 g/dL (14.0-18.0); Mean Corpuscular Volume 87.5 fL (78.0-98.0); Mean Platelet Volume 6.6 fL (7.4-10.4); Platelet Count 316 thou/uL (130-400); RBC Distribution Width 13.4 % (11.5-14.5); Red Blood Cell (RBC) Count 4.84 mill/uL (4.70-6.10); White Blood Cell (WBC) Count 9.7 thou/uL (4.8-10.8)
[2019-07-06 06:01] LABS: Anion Gap 14 mmol/L (10-20); BUN (Urea Nitrogen) 24 mg/dL (8.4-25.7); Calc. Creatinine Clearance 70 mL/min (70-130); Calcium 9.2 mg/dL (7.8-10.44); Carbon Dioxide 22 mmol/L (23-31); Chloride 103 mmol/L (98-107); Estimated GFR-MDRD 49; Glucose 100 mg/dL (83-110); Potassium 4.1 mmol/L (3.5-5.1); Sodium 135 mmol/L (136-145)
[2019-07-06] MEDS: Aspirin 81 mg Enteric Coated Tablet PO SCH (08:22)
[2019-07-06] MEDS ORDERED: Cyanocobalamin (Vitamin B-12) 1,000 MCG TAB PO SCH (09:00)
[2019-07-06] MEDS: Lidocaine 5% Patch TD SCH (09:22)
--- NOTE | 2019-07-06 09:36 | PRG ---
DATE OF SERVICE: 07/05/2019 SUBJECTIVE: Mr. Sidhu was trying to urinate by the side of the bed and fell down, but did not have any major injuries, still inadequate pain control. No headaches. No shortness of breath. Able to void in the toilet and urinal. OBJECTIVE: VITAL SIGNS: T-max 98.1, BP ranging from 180/100 to 184/112. BP now is 127/69, pulse 98, respirations 20, O2 saturation 96, appears in no distress. GENERAL: Awake, alert, and oriented. LUNGS: Clear to auscultation and percussion. HEART: S1 and S2, regular rate. ABDOMEN: Soft. EXTREMITIES: Log roll maneuver left and right legs without any pain in the hips. LABORATORY DATA: White cell count 11.2, hemoglobin 13, platelets 288. Creatinine 1.39, which is better than admission. Microbiology with negative blood cultures thus far. Urine culture, no growth. The patient had a pelvis CT and there was no evidence of fracture. I spoke with the radiologist and he reviewed imaging studies at [facility] and the areas of abscesses are too small for percutaneous aspirate. ASSESSMENT AND DISCUSSION: Progress of lumbosacral spine pain in the setting of BPH and evidence of diskitis and microabscesses in the paravertebral area, psoas muscle, and osteomyelitis of the L3 or L4. The patient is not eligible for percutaneous aspirate and we will continue empiric treatment with Rocephin, vancomycin, PICC line placement, and plan outpatient treatment as soon as he is functionally able to be discharged. Job ID: [id number] [facility]
[2019-07-06] MEDS: Cyanocobalamin (Vitamin B-12) 1,000 MCG TAB PO SCH (10:45)
[2019-07-06] MEDS: Enoxaparin Sodium 40 MG/0.4 ML SYRINGE SC SCH (10:45)
[2019-07-06] MEDS: Atorvastatin Calcium 40 MG TAB PO SCH (10:45)
[2019-07-06] MEDS: Gabapentin 300 MG CAP PO SCH ×3 (10:46→20:59)
[2019-07-06] MEDS: hydrALAZINE 25 MG TAB PO SCH ×3 (10:46→20:59)
[2019-07-06] MEDS: Tamsulosin HCl 0.4 MG CAP PO SCH (10:46)
[2019-07-06] MEDS: Senokot S 8.6-50 MG TAB PO SCH ×2 (10:46→20:59)
[2019-07-06] MEDS: Vancomycin HCl 1.25 GM in Sodium Chloride 0.9% 250 ML 250 ML IVPB SCH ×2 (11:09→23:09)
--- NOTE | 2019-07-06 11:30 | SPC ---
Ultrasound-guidedleftupper extremity PICC placement: 07/06/2019 HISTORY: Discitis/osteomyelitis, IV antibiotics FINDINGS: Informed consent obtained prior to the procedure. Left antecubital fossa prepped and draped in normal sterile fashion. Skin overlying theleft basilicvein anesthetized with 1% buffered lidocaine. With direct sonographic g uidance, vascular access is obtained via the left basilicvein and an 0.018in wire was advanced to the cavoatrial junction. Intravascular length is calculated at 48 cm and of the PICC is cut according ly. Needle is removed and replaced with a peel-away sheath. The PICC was advanced over the wire. Wire and peel-away sheath were removed. The tip of the catheter overlies the cavoatrial junction. The port flushes well and the catheter is ready for use. Exposure data: 0.0 minutes of fluoroscopic time 865 mGy per centimeter squared IMPRESSION: Successful ultrasound guided placement of a leftupper extremity PICC.
[2019-07-06] MEDS: oxyCODONE 5 MG TAB PO PRN ×2 (13:01→18:57)
[2019-07-06] MEDS: cefTRIAXone\\ROCEPHIN 2 GM in Sodium Chloride 0.9% 100 ML IVPB SCH (16:46)
[2019-07-06] MEDS: Lidocaine Patch Removal 1 EACH TOP SCH (20:59)
[2019-07-06] MEDS: Levothyroxine Sodium 100 MCG TAB PO SCH (20:59)
[2019-07-06] MEDS: Famotidine 20 MG TAB PO SCH (20:59)
--- NOTE | 2019-07-06 22:01 | PDOC.HOSPP ---
- Subjective Encounter Date: 07/06/19 Encounter Time: 17:00 Subjective: The patient says this morning he had severe pain while standing up to walk to the bathroom and slid to the floor again. His pain is better controlled though however with the gabapentin and oxycodone and he isn't having to use any IV medications. ' He denies bowel or bladder incontinence. He received the PICC line today. Informed patient to try and use walker when getting up. - Objective Vital Signs & Weight: Vital Signs (12 hours) Temp Pulse Resp BP BP Pulse Ox 07/06/19 21:24 98.0 F 94 18 167/89 H 99 07/06/19 20:59 94 167/89 H 07/06/19 16:11 92 158/96 H 07/06/19 12:00 97.6 F 92 20 158/96 H 98 07/06/19 10:46 99 Weight Weight 230 lb 6.4 oz I&O: 07/05/19 07/06/19 07/07/19 06:59 06:59 06:59 Intake Total 1020 730 Balance 1020 730 Result Diagrams: 07/06/19 05:02 07/06/19 05:02 Hospitalist ROS - Review of Systems Constitutional: denies: fever, chills - Medication Medications: Active Medications Generic Name Dose Route Start Last Admin Trade Name Freq PRN Reason Stop Dose Admin Acetaminophen 650 mg 07/03/19 21:27 07/04/19 12:31 Tylenol PO 650 mg Q4H PRN Administration Headache/Fever/Mild Pain (1-3) Aspirin 81 mg 07/04/19 09:00 07/06/19 08:22 Ecotrin PO Not Given DAILY [facility] Atorvastatin Calcium 40 mg 07/04/19 09:00 07/06/19 10:45 Lipitor PO Not Given DAILY [facility] Cyanocobalamin 2,000 mcg 07/06/19 09:00 07/06/19 10:45 Vitamin B-12 PO Not Given DAILY [facility] Enoxaparin Sodium 40 mg 07/04/19 09:00 07/06/19 10:45 Lovenox SC Not Given 0900 [facility] Famotidine 20 mg 07/04/19 21:00 07/06/19 20:59 Pepcid PO 20 mg Q24HR [facility] Administration Gabapentin 600 mg 07/05/19 15:00 07/06/19 20:59 Neurontin PO 600 mg TID [facility] Administration Hydralazine HCl 10 mg 07/03/19 21:27 07/05/19 02:18 Apresoline SLOW IVP 10 mg Q4H PRN Administration SBP > 180 and HR < 70 Hydralazine HCl 25 mg 07/05/19 15:00 07/06/19 20:59 Apresoline PO 25 mg TID [facility] Administration Ceftriaxone Sodium 2 gm/ 100 mls @ 200 mls/hr 07/04/19 16:00 07/06/19 16:46 Sodium Chloride IVPB 100 mls 1600 [facility] Administration Vancomycin HCl 1.25 gm/ Sodium 250 mls @ 166.667 mls/hr 07/05/19 11:00 11:09 Chloride IVPB 250 mls 1100,2300 [facility] Administration Labetalol HCl 20 mg 07/03/19 21:27 07/05/19 23:48 Normodyne SLOW IVP 4 ml Q4H PRN Administration SBP > 180 and HR >/= 70 Levothyroxine Sodium 100 mcg 07/04/19 21:00 07/06/19 20:59 Synthroid PO 100 mcg 2100 [facility] Administration Lidocaine 1 patch 07/06/19 09:00 07/06/19 09:22 Lidoderm 5% Patch TD 1 patch DAILY [facility] Administration Miscellaneous Medication 1 each 07/06/19 21:00 07/06/19 20:59 Lidocaine Patch Removal TOP Not Given 2100 [facility] Oxycodone HCl 5 mg 07/05/19 11:49 07/06/19 18:57 Oxycodone Ir PO 5 mg Q4H PRN Administration Severe Pain (7-10) Promethazine HCl 25 mg 07/03/19 21:27 07/06/19 09:21 Phenergan PO 25 mg Q6H PRN Administration Nausea/Vomiting Senna/Docusate Sodium 1 tab 07/04/19 21:00 07/06/19 20:59 Senokot S PO 1 tab BID [facility] Administration Tamsulosin HCl 0.4 mg 07/04/19 09:00 07/06/19 10:46 Flomax PO Not Given DAILY [facility] - Exam General Appearance: NAD, awake alert Eye: PERRL, anicteric sclera ENT: normocephalic atraumatic, moist mucosa, dry oral mucosa Neck: supple, no JVD Heart: RRR, no murmur, no gallops, no rubs, normal peripheral pulses Respiratory: CTAB, no wheezes, no rales, no ronchi Gastrointestinal: soft, non-tender, non-distended, normal bowel sounds Extremities: no cyanosis, no clubbing, no edema Skin: normal turgor, no lesions, no rashes Neurological: cranial nerve grossly intact, normal sensation to touch, no weakness, no focal deficits Musculoskeletal: normal tone, normal strength, no muscle wasting Musculoskeletal - other findings: Straight leg test positve bilaterally but patient tolerated better Psychiatric: normal affect, normal behavior, A&O x 3 Hosp A/P - Plan EKG: normal sinus rhythm MRI: unable to see report, but showed diskitis or osteomyelitis CT hip: L3-L4 osteomyelitis This is 73 year old male with PMh of hypothyroidi, BPH, hypertension, two strokes, CVA who presented with left sided radiculopar pain, found to have possible diskitis or osteomyelitis #L3-L4 Osteomyelitis versus diskitis #Left leg radiculopathy - MRI shows L3-L4 osteomyelitis. Microabscesses present per ID not amenable to drainage - per neurosurgery no intervention - had WBC of 12.5 on admission, currently on vancomycin and ceftriaxone. Blood cultures negative to date. Will need 6 weeks of IV antibiotics, PICC line placed today - continue oxycodone 5 mg q4 hours prn and gabapentin 600 mg tid - continue lidocaine patch - educated patient to use walker to prevent falls #Vitamin B12 deficiency Anemia - B12 low at 197 - starting vitamin B12 2000 mcg daily . Intrinsic factor sent CKD - creatinine 1.40 at baseline Dispo: likely d/c in am if pain controlled DVT prophylaxis: SCDS due to high risk of falls Code status: full code
[2019-07-06 22:18] LABS: Vancomycin, Trough 14.7 ug/mL
[2019-07-06] MEDS: Melatonin 3 MG TAB PO PRN (23:08)
[2019-07-07] MEDS: oxyCODONE 5 MG TAB PO PRN ×2 (03:48→09:04)
[2019-07-07 05:52] LABS: Hemoglobin 13.3 g/dL (14.0-18.0); Mean Corpuscular HGB CONC 31.4 g/dL (32.0-36.0); Mean Corpuscular Hemoglobin 27.4 pg (27.0-31.0); Mean Corpuscular Volume 87.3 fL (78.0-98.0); Mean Platelet Volume 6.7 fL (7.4-10.4); Platelet Count 303 thou/uL (130-400); RBC Distribution Width 13.3 % (11.5-14.5); Red Blood Cell (RBC) Count 4.84 mill/uL (4.70-6.10); White Blood Cell (WBC) Count 8.9 thou/uL (4.8-10.8)
[2019-07-07 06:35] LABS: Anion Gap 12 mmol/L (10-20); BUN (Urea Nitrogen) 20 mg/dL (8.4-25.7); Calc. Creatinine Clearance 76 mL/min (70-130); Calcium 9.2 mg/dL (7.8-10.44); Carbon Dioxide 26 mmol/L (23-31); Chloride 104 mmol/L (98-107); Estimated GFR-MDRD 54; Glucose 91 mg/dL (83-110); Potassium 4.1 mmol/L (3.5-5.1); Sodium 138 mmol/L (136-145)
[2019-07-07] MEDS: hydrALAZINE 25 MG TAB PO SCH ×3 (09:02→20:27)
[2019-07-07] MEDS: Cyanocobalamin (Vitamin B-12) 1,000 MCG TAB PO SCH (09:02)
[2019-07-07] MEDS: Atorvastatin Calcium 40 MG TAB PO SCH (09:04)
[2019-07-07] MEDS: Senokot S 8.6-50 MG TAB PO SCH ×2 (09:04→20:27)
[2019-07-07] MEDS: Tamsulosin HCl 0.4 MG CAP PO SCH (09:04)
[2019-07-07] MEDS: Aspirin 81 mg Enteric Coated Tablet PO SCH (09:04)
[2019-07-07] MEDS: Gabapentin 300 MG CAP PO SCH ×3 (09:04→20:27)
[2019-07-07] MEDS: Enoxaparin Sodium 40 MG/0.4 ML SYRINGE SC SCH (09:07)
[2019-07-07] MEDS: Lidocaine 5% Patch TD SCH (09:53)
[2019-07-07] MEDS: Vancomycin HCl 1.25 GM in Sodium Chloride 0.9% 250 ML 250 ML IVPB SCH ×2 (10:48→22:45)
--- NOTE | 2019-07-07 14:14 | PQF ---
DATE: 07-07-19 ATTN: DR. JULIA AMOS Please exercise your independent, professional judgment in responding to the clarification form. Clinical indicators are provided on the bottom of this form for your review Please check appropriate box(s): [ X] Acute Renal Failure (ARF) / Acute Kidney Injury (ANGEL) : now resolve [ ] Acute on Chronic Renal Failure please specify Stage of CKD (see below) [ ] CKD without ARF/ANGEL please specify Stage of CKD [ ] Other diagnosis [ ] Unable to determine In addition, please specify: Present on Admission (POA): [ X] Yes [ ] No [ ] Unable to determine National Kidney Foundation Guidelines for CKD Staging Stage I Kidney damage with normal or increased GFR GFR > 90 Stage II Kidney damage with mildly decreased GFR GFR 60-89 Stage III Kidney damage with moderately decreased GFR GFR 30 -59 Stage IV Kidney damage with severely decreased GFR GFR 16 -29 Stage V Kidney failure GFR<15 ESRD End Stage Renal Disease On dialysis Acute Renal Failure/Acute Kidney Failure defined as: Increases in SCr by (>) 0.3 mg/dl within 48 hours OR- Increases in SCr by (>) 1.5 times baseline, known or presumed to have occurred within the prior 7 days OR- Urine volume < 0.5 ml/kg/hour for 6 hours (KDIGO supplement 2012 for RIFLE/PADDY criteria) For continuity of documentation, please document condition throughout progress notes and discharge summary. Thank You. CLINICAL INDICATORS - SIGNS / SYMPTOMS / LABS / RESULTS AND LOCATION IN MR: GFR: 07-03-19: 38 07-04-19: 50 07-05-19: 50 07-06-19: 49 07-07-19: 54 CREATININE: 07-03-19: 1.77 07-04-19: 1.40 07-05-19: 1.39 07-06-19: 1.41 07-07-19: 1.30 BUN: 07-03-19: 30 07-04-19: 24 07-05-19: 18 07-06-19: 24 07-07-19: [address] JULIA AMOS 07-04-19: CKD, CREATININE 1.40 AT BASELINE RISK FACTORS / RESULTS AND LOCATION IN MR: PN DR. JULIA AMOS 07-04-19: CKD, CREATININE 1.40 AT BASELINE TREATMENTS / RESULTS AND LOCATION IN MR: ER NOTES 07-07-19: IVF NS SERIES OF LABS FROM 07-03-19 TO 07-07-19 (This form is maintained as a part of the permanent medical record) 2014 [employer]. All Rights Reserved SPENCER [email or web address] Office: [phone] [facility]ITAL[facility]
[2019-07-07] MEDS: cefTRIAXone\\ROCEPHIN 2 GM in Sodium Chloride 0.9% 100 ML IVPB SCH (15:00)
--- NOTE | 2019-07-07 15:36 | PDOC.HOSPP ---
- Subjective Encounter Date: 07/07/19 Encounter Time: 15:34 Subjective: The patient says the pain medication helps however when he stands up he still has 8/10 pain. He notices however the oxycodone is making his vision slightly hazy and dizzy. He took aleve previously before admission and it didn't help. He has no bowel or bladder incontinence. PT evaluated patient, discussed need for SNF - Objective Vital Signs & Weight: Vital Signs (12 hours) Temp Pulse Resp BP BP Pulse Ox 07/07/19 14:47 99 110/67 07/07/19 12:32 99.2 F 109 H 16 110/67 92 L 07/07/19 09:02 107 H 138/108 H 07/07/19 08:00 94 L 07/07/19 04:00 98.9 F 103 H 18 155/91 H 95 Weight Weight 230 lb 6.4 oz I&O: 07/06/19 07/07/19 07/08/19 06:59 06:59 06:59 Intake Total 730 970 Output Total 1200 Balance 730 -230 Result Diagrams: 07/07/19 05:09 07/07/19 05:09 Hospitalist ROS - Review of Systems Constitutional: denies: fever, chills Neurological: reports: weakness, numbness - Medication Medications: Active Medications Generic Name Dose Route Start Last Admin Trade Name Alexander PRN Reason Stop Dose Admin Acetaminophen 650 mg 07/03/19 21:27 07/04/19 12:31 Tylenol PO 650 mg Q4H PRN Administration Headache/Fever/Mild Pain (1-3) Aspirin 81 mg 07/04/19 09:00 07/07/19 09:04 Ecotrin PO 81 mg DAILY [facility] Administration Atorvastatin Calcium 40 mg 07/04/19 09:00 07/07/19 09:04 Lipitor PO 40 mg DAILY [facility] Administration Cyanocobalamin 2,000 mcg 07/06/19 09:00 07/07/19 09:02 Vitamin B-12 PO 2,000 mcg DAILY [facility] Administration Enoxaparin Sodium 40 mg 07/04/19 09:00 07/07/19 09:07 Lovenox SC 40 mg 0900 [facility] Administration Famotidine 20 mg 07/04/19 21:00 07/06/19 20:59 Pepcid PO 20 mg Q24HR [facility] Administration Gabapentin 600 mg 07/05/19 15:00 07/07/19 14:47 Neurontin PO 600 mg TID [facility] Administration Hydralazine HCl 10 mg 07/03/19 21:27 07/05/19 02:18 Apresoline SLOW IVP 10 mg Q4H PRN Administration SBP > 180 and HR < 70 Hydralazine HCl 25 mg 07/05/19 15:00 07/07/19 14:47 Apresoline PO Not Given TID [facility] Ceftriaxone Sodium 2 gm/ 100 mls @ 200 mls/hr 07/04/19 16:00 07/07/19 15:00 Sodium Chloride IVPB 100 mls 1600 [facility] Administration Vancomycin HCl 1.25 gm/ Sodium 250 mls @ 166.667 mls/hr 07/05/19 11:00 10:48 Chloride IVPB 250 mls 1100,2300 [facility] Administration Labetalol HCl 20 mg 07/03/19 21:27 07/05/19 23:48 Normodyne SLOW IVP 4 ml Q4H PRN Administration SBP > 180 and HR >/= 70 Levothyroxine Sodium 100 mcg 07/04/19 21:00 07/06/19 20:59 Synthroid PO 100 mcg 2100 [facility] Administration Lidocaine 1 patch 07/06/19 09:00 07/07/19 09:53 Lidoderm 5% Patch TD 1 patch DAILY [facility] Administration Melatonin 3 mg 07/03/19 23:51 07/06/19 23:08 Melatonin PO 3 mg HSPRN PRN Administration Insomnia Miscellaneous Medication 1 each 07/06/19 21:00 07/06/19 20:59 Lidocaine Patch Removal TOP Not Given 2100 [facility] Oxycodone HCl 5 mg 07/05/19 11:49 07/07/19 09:04 Oxycodone Ir PO 5 mg Q4H PRN Administration Severe Pain (7-10) Promethazine HCl 25 mg 07/03/19 21:27 07/06/19 09:21 Phenergan PO 25 mg Q6H PRN Administration Nausea/Vomiting Senna/Docusate Sodium 1 tab 07/04/19 21:00 07/07/19 09:04 Senokot S PO 1 tab BID [facility] Administration Tamsulosin HCl 0.4 mg 07/04/19 09:00 07/07/19 09:04 Flomax PO 0.4 mg DAILY [facility] Administration - Exam General Appearance: NAD, awake alert Eye: PERRL, anicteric sclera ENT: normocephalic atraumatic, no oropharyngeal lesions Neck: supple, symmetric, no JVD, no thyromegaly Heart: RRR, no murmur, no gallops, no rubs Respiratory: CTAB, no wheezes, no rales, no ronchi Gastrointestinal: soft, non-tender, non-distended, normal bowel sounds Extremities: no cyanosis, no clubbing, no edema Skin: normal turgor, no lesions, no rashes Neurological: cranial nerve grossly intact, normal sensation to touch, no focal deficits, no new deficit Musculoskeletal: normal tone, normal strength, no muscle wasting Musculoskeletal - other findings: positive straight leg test bilaterally. Able to lift right leg higher than Psychiatric: normal affect, normal behavior, A&O x 3, oriented to person Hosp A/P - Plan EKG: normal sinus rhythm MRI: unable to see report, but showed diskitis or osteomyelitis CT hip: L3-L4 osteomyelitis This is 73 year old male with PMh of hypothyroidi, BPH, hypertension, two strokes, CVA who presented with left sided radiculopar pain, found to have possible diskitis or osteomyelitis #L3-L4 Osteomyelitis versus diskitis #Left leg radiculopathy - MRI shows L3-L4 osteomyelitis. Microabscesses present per ID not amenable to drainage - per neurosurgery no intervention - continue IV vancomycin and ceftriaxone for 6 weeks - decrease oxycodone to 2.5 mg q4 hours prn. Add flexeril 5 mg bid, cymbalta. Continue gabapentin 600 mg tid, lidocaine patch #Vitamin B12 deficiency Anemia - B12 low at 197 - continue vitamin B12 2000 mcg daily . Intrinsic factor sent CKD - creatinine 1.40 at baseline Dispo: d/c to SNF DVT prophylaxis: SCDS due to high risk of falls Code status: full code
[2019-07-07] MEDS: Famotidine 20 MG TAB PO SCH (20:27)
[2019-07-07] MEDS: Levothyroxine Sodium 100 MCG TAB PO SCH (20:28)
[2019-07-07] MEDS: Cyclobenzaprine 10 MG TAB PO SCH (20:28)
[2019-07-07] MEDS: Lidocaine Patch Removal 1 EACH TOP SCH (20:28)
[2019-07-07] MEDS: Melatonin 3 MG TAB PO PRN (22:45)
[2019-07-08] MEDS: hydrALAZINE 20 MG/ML VIAL SLOW IVP PRN (06:02)
[2019-07-08] MEDS: oxyCODONE 5 MG TAB PO PRN ×4 (07:09→22:49)
[2019-07-08] MEDS: Atorvastatin Calcium 40 MG TAB PO SCH (08:48)
[2019-07-08] MEDS: Lidocaine 5% Patch TD SCH (08:48)
[2019-07-08] MEDS: Tamsulosin HCl 0.4 MG CAP PO SCH (08:48)
[2019-07-08] MEDS: Cyclobenzaprine 10 MG TAB PO SCH (08:48)
[2019-07-08] MEDS: Cyanocobalamin (Vitamin B-12) 1,000 MCG TAB PO SCH (08:48)
[2019-07-08] MEDS: Aspirin 81 mg Enteric Coated Tablet PO SCH (08:49)
[2019-07-08] MEDS: Enoxaparin Sodium 40 MG/0.4 ML SYRINGE SC SCH (08:51)
[2019-07-08] MEDS: Senokot S 8.6-50 MG TAB PO SCH ×3 (08:51→21:10)
[2019-07-08] MEDS: DULoxetine 30 MG CAP PO SCH (08:51)
[2019-07-08] MEDS: hydrALAZINE 25 MG TAB PO SCH ×3 (08:51→21:05)
[2019-07-08] MEDS: Gabapentin 300 MG CAP PO SCH ×3 (08:51→21:06)
[2019-07-08] MEDS: Vancomycin HCl 1.25 GM in Sodium Chloride 0.9% 250 ML 250 ML IVPB SCH ×2 (11:19→22:43)
[2019-07-08] MEDS: cefTRIAXone\\ROCEPHIN 2 GM in Sodium Chloride 0.9% 100 ML IVPB SCH (15:00)
--- NOTE | 2019-07-08 17:04 | PDOC.HOSPP ---
- Subjective Encounter Date: 07/08/19 Encounter Time: 16:58 Subjective: Back pain is better compared to yesterday but it is still bad. The patient denies tingling or numbness in his extremities. He denies bowel or bladder incontinence. He was sleeping comfortably when I walked in. Referrals sent to rehab, not approved yet per case management - Objective Vital Signs & Weight: Vital Signs (12 hours) Temp Pulse Resp BP BP BP Pulse Ox 07/08/19 16:00 97.3 F L 99 20 126/85 93 L 07/08/19 14:50 177/65 H 07/08/19 11:24 98.0 F 110 H 20 136/83 94 L 07/08/19 08:56 94 L 07/08/19 08:55 97.3 F L 107 H 18 136/82 94 L 07/08/19 08:51 107 H 136/82 07/08/19 06:02 94 199/89 H Weight Weight 230 lb 6.4 oz I&O: 07/07/19 07/08/19 07/09/19 06:59 06:59 06:59 Intake Total 970 730 Output Total 1200 1500 Balance -230 -770 Result Diagrams: 07/07/19 05:09 07/07/19 05:09 Hospitalist ROS - Review of Systems Constitutional: denies: fever, chills - Medication Medications: Active Medications Generic Name Dose Route Start Last Admin Trade Name Freq PRN Reason Stop Dose Admin Acetaminophen 650 mg 07/03/19 21:27 07/04/19 12:31 Tylenol PO 650 mg Q4H PRN Administration Headache/Fever/Mild Pain (1-3) Aspirin 81 mg 07/04/19 09:00 07/08/19 08:49 Ecotrin PO 81 mg DAILY [facility] Administration Atorvastatin Calcium 40 mg 07/04/19 09:00 07/08/19 08:48 Lipitor PO 40 mg DAILY [facility] Administration Cyanocobalamin 2,000 mcg 07/06/19 09:00 07/08/19 08:48 Vitamin B-12 PO 2,000 mcg DAILY [facility] Administration Cyclobenzaprine HCl 5 mg 07/07/19 21:00 07/08/19 08:48 Flexeril PO 5 mg BID [facility] Administration Duloxetine HCl 30 mg 07/08/19 09:00 07/08/19 08:51 Cymbalta PO 30 mg DAILY [facility] Administration Enoxaparin Sodium 40 mg 07/04/19 09:00 07/08/19 08:51 Lovenox SC 40 mg 09 [facility] Administration Famotidine 20 mg 07/04/19 21:00 07/07/19 20:27 Pepcid PO 20 mg Q24HR [facility] Administration Gabapentin 600 mg 07/05/19 15:00 07/08/19 14:49 Neurontin PO 600 mg TID [facility] Administration Hydralazine HCl 10 mg 07/03/19 21:27 07/08/19 06:02 Apresoline SLOW IVP 10 mg Q4H PRN Administration SBP > 180 and HR < 70 Hydralazine HCl 25 mg 07/05/19 15:00 07/08/19 14:50 Apresoline PO 25 mg TID [facility] Administration Ceftriaxone Sodium 2 gm/ 100 mls @ 200 mls/hr 07/04/19 16:00 07/08/19 15:00 Sodium Chloride IVPB 100 mls 1600 [facility] Administration Vancomycin HCl 1.25 gm/ Sodium 250 mls @ 166.667 mls/hr 07/05/19 11:00 11:19 Chloride IVPB 250 mls 1100,2300 [facility] Administration Labetalol HCl 20 mg 07/03/19 21:27 07/05/19 23:48 Normodyne SLOW IVP 4 ml Q4H PRN Administration SBP > 180 and HR >/= 70 Levothyroxine Sodium 100 mcg 07/04/19 21:00 07/07/19 20:28 Synthroid PO 100 mcg 2100 [facility] Administration Lidocaine 1 patch 07/06/19 09:00 07/08/19 08:48 Lidoderm 5% Patch TD 1 patch DAILY [facility] Administration Melatonin 3 mg 07/03/19 23:51 07/07/19 22:45 Melatonin PO 3 mg HSPRN PRN Administration Insomnia Miscellaneous Medication 1 each 07/06/19 21:00 07/07/19 20:28 Lidocaine Patch Removal TOP Not Given 2100 [facility] Oxycodone HCl 2.5 mg 07/07/19 15:37 07/08/19 14:50 Oxycodone Ir PO 2.5 mg Q4H PRN Administration Severe Pain (7-10) Promethazine HCl 25 mg 07/03/19 21:27 07/06/19 09:21 Phenergan PO 25 mg Q6H PRN Administration Nausea/Vomiting Senna/Docusate Sodium 1 tab 07/04/19 21:00 07/08/19 08:51 Senokot S PO Not Given BID [facility] Tamsulosin HCl 0.4 mg 07/04/19 09:00 07/08/19 08:48 Flomax PO 0.4 mg DAILY [facility] Administration - Exam General Appearance: NAD, awake alert Eye: PERRL, anicteric sclera ENT: normocephalic atraumatic, no oropharyngeal lesions Neck: supple, symmetric, no JVD, no thyromegaly Heart: RRR, no murmur, no gallops, no rubs Respiratory: CTAB, no wheezes, no rales, no ronchi Gastrointestinal: soft, non-tender, non-distended, normal bowel sounds Extremities: no cyanosis, no clubbing, no edema Skin: normal turgor, no lesions, no rashes Neurological: cranial nerve grossly intact, normal sensation to touch, no focal deficits, no new deficit Musculoskeletal: normal tone, normal strength, no muscle wasting Musculoskeletal - other findings: Straight leg test didn't illicit much pain today Psychiatric: normal affect, normal behavior, A&O x 3, oriented to place, oriented to time Hosp A/P - Plan EKG: normal sinus rhythm MRI: unable to see report, but showed diskitis or osteomyelitis CT hip: L3-L4 osteomyelitis This is 73 year old male with PMh of hypothyroidi, BPH, hypertension, two strokes, CVA who presented with left sided radiculopar pain, found to have possible diskitis or osteomyelitis #L3-L4 Osteomyelitis versus diskitis #Left leg radiculopathy - MRI shows L3-L4 osteomyelitis. Microabscesses present per ID not amenable to drainage - per neurosurgery no intervention - continue IV vancomycin and ceftriaxone for 6 weeks - continue oxycodone to 2.5 mg q4 hours prn. Continue flexeril 5 mg bid prn, cymbalta dailiy -. Continue gabapentin 600 mg tid, lidocaine patch #Vitamin B12 deficiency Anemia - B12 low at 197 - continue vitamin B12 2000 mcg daily . Intrinsic factor sent CKD - creatinine 1.40 at baseline Dispo: d/c to SNF DVT prophylaxis: SCDS due to high risk of falls Code status: full code
[2019-07-08] MEDS ORDERED: Cyclobenzaprine 10 MG TAB PO PRN (17:07)
[2019-07-08] MEDS: Levothyroxine Sodium 100 MCG TAB PO SCH (21:05)
[2019-07-08] MEDS: Lidocaine Patch Removal 1 EACH TOP SCH (21:07)
[2019-07-08] MEDS: Famotidine 20 MG TAB PO SCH (21:08)
[2019-07-08] MEDS: Melatonin 3 MG TAB PO PRN (22:43)
[2019-07-09 06:27] LABS: Hemoglobin 12.2 g/dL (14.0-18.0); Mean Corpuscular HGB CONC 32.9 g/dL (32.0-36.0); Mean Corpuscular Hemoglobin 28.6 pg (27.0-31.0); Mean Corpuscular Volume 86.8 fL (78.0-98.0); Mean Platelet Volume 6.6 fL (7.4-10.4); Platelet Count 288 thou/uL (130-400); RBC Distribution Width 13.2 % (11.5-14.5); Red Blood Cell (RBC) Count 4.26 mill/uL (4.70-6.10); White Blood Cell (WBC) Count 8.9 thou/uL (4.8-10.8)
[2019-07-09 06:47] LABS: Anion Gap 11 mmol/L (10-20); BUN (Urea Nitrogen) 22 mg/dL (8.4-25.7); Calc. Creatinine Clearance 74 mL/min (70-130); Calcium 9.1 mg/dL (7.8-10.44); Carbon Dioxide 28 mmol/L (23-31); Chloride 103 mmol/L (98-107); Estimated GFR-MDRD 52; Glucose 109 mg/dL (83-110); Potassium 3.9 mmol/L (3.5-5.1); Sodium 138 mmol/L (136-145)
[2019-07-09] MEDS: Aspirin 81 mg Enteric Coated Tablet PO SCH (09:10)
[2019-07-09] MEDS: hydrALAZINE 25 MG TAB PO SCH ×3 (09:10→21:23)
[2019-07-09] MEDS: Cyanocobalamin (Vitamin B-12) 1,000 MCG TAB PO SCH (09:10)
[2019-07-09] MEDS: Tamsulosin HCl 0.4 MG CAP PO SCH (09:11)
[2019-07-09] MEDS: Enoxaparin Sodium 40 MG/0.4 ML SYRINGE SC SCH (09:11)
[2019-07-09] MEDS: Atorvastatin Calcium 40 MG TAB PO SCH (09:11)
[2019-07-09] MEDS: Lidocaine 5% Patch TD SCH (09:11)
[2019-07-09] MEDS: Senokot S 8.6-50 MG TAB PO SCH ×2 (09:11→21:24)
[2019-07-09] MEDS: Gabapentin 300 MG CAP PO SCH ×3 (09:11→21:23)
[2019-07-09] MEDS: DULoxetine 30 MG CAP PO SCH (09:11)
[2019-07-09] MEDS: oxyCODONE 5 MG TAB PO PRN ×2 (09:12→21:26)
[2019-07-09 10:30] LABS: Vancomycin, Trough 21.2 ug/mL
[2019-07-09] MEDS: Vancomycin HCl 1 GM in Premix Bag 1 BAG IVPB SCH ×2 (11:00→22:33)
[2019-07-09] MEDS: cefTRIAXone\\ROCEPHIN 2 GM in Sodium Chloride 0.9% 100 ML IVPB SCH (15:05)
--- NOTE | 2019-07-09 16:13 | PDOC.HOSPP ---
- Subjective Encounter Date: 07/09/19 Encounter Time: 13:00 Subjective: The patient states his pain is much better controlled today, currently a 2-3/ 10. He did well with physical therapy today. Not as much issues with balance. No bowel or bladder incontinence. Currently waiting on approval for home infusion antibiotics. - Objective Vital Signs & Weight: Vital Signs (12 hours) Temp Pulse Resp BP BP Pulse Ox 07/09/19 15:06 147/83 H 07/09/19 11:36 98.3 F 108 H 20 164/89 H 94 L 07/09/19 09:10 109 H 171/93 H 07/09/19 09:00 94 L 07/09/19 07:57 98.1 F 109 H 20 171/93 H 94 L Weight Weight 230 lb 6.4 oz I&O: 07/08/19 07/09/19 07/10/19 06:59 06:59 06:59 Intake Total 730 Output Total 1500 Balance -770 Result Diagrams: 07/09/19 06:02 07/09/19 06:02 Hospitalist ROS - Review of Systems Constitutional: denies: fever, chills Gastrointestinal: denies: vomiting Genitourinary: denies: dysuria, frequency - Medication Medications: Active Medications Generic Name Dose Route Start Last Admin Trade Name Freq PRN Reason Stop Dose Admin Acetaminophen 650 mg 07/03/19 21:27 07/04/19 12:31 Tylenol PO 650 mg Q4H PRN Administration Headache/Fever/Mild Pain (1-3) Aspirin 81 mg 07/04/19 09:00 07/09/19 09:10 Ecotrin PO 81 mg DAILY [facility] Administration Atorvastatin Calcium 40 mg 07/04/19 09:00 07/09/19 09:11 Lipitor PO 40 mg DAILY [facility] Administration Cyanocobalamin 2,000 mcg 07/06/19 09:00 07/09/19 09:10 Vitamin B-12 PO 2,000 mcg DAILY [facility] Administration Duloxetine HCl 30 mg 07/08/19 09:00 07/09/19 09:11 Cymbalta PO 30 mg DAILY [facility] Administration Enoxaparin Sodium 40 mg 07/04/19 09:00 07/09/19 09:11 Lovenox SC 40 mg 0900 [facility] Administration Famotidine 20 mg 07/04/19 21:00 07/08/19 21:08 Pepcid PO 20 mg Q24HR [facility] Administration Gabapentin 600 mg 07/05/19 15:00 07/09/19 15:04 Neurontin PO 600 mg TID [facility] Administration Hydralazine HCl 10 mg 07/03/19 21:27 07/08/19 06:02 Apresoline SLOW IVP 10 mg Q4H PRN Administration SBP > 180 and HR < 70 Hydralazine HCl 25 mg 07/05/19 15:00 07/09/19 15:06 Apresoline PO 25 mg TID [facility] Administration Ceftriaxone Sodium 2 gm/ 100 mls @ 200 mls/hr 07/04/19 16:00 07/09/19 15:05 Sodium Chloride IVPB 100 mls 1600 [facility] Administration Vancomycin HCl 1 gm/ Device 200 mls @ 200 mls/hr 07/09/19 11:00 07/09/19 11: 00 IVPB 200 mls 1100,2300 [facility] Administration Labetalol HCl 20 mg 07/03/19 21:27 07/05/19 23:48 Normodyne SLOW IVP 4 ml Q4H PRN Administration SBP > 180 and HR >/= 70 Levothyroxine Sodium 100 mcg 07/04/19 21:00 07/08/19 21:05 Synthroid PO 100 mcg 2100 [facility] Administration Lidocaine 1 patch 07/06/19 09:00 07/09/19 09:11 Lidoderm 5% Patch TD 1 patch DAILY [facility] Administration Melatonin 3 mg 07/03/19 23:51 07/08/19 22:43 Melatonin PO 3 mg HSPRN PRN Administration Insomnia Miscellaneous Medication 1 each 07/06/19 21:00 07/08/19 21:07 Lidocaine Patch Removal TOP Not Given 2100 [facility] Oxycodone HCl 2.5 mg 07/07/19 15:37 07/09/19 09:12 Oxycodone Ir PO 2.5 mg Q4H PRN Administration Severe Pain (7-10) Promethazine HCl 25 mg 07/03/19 21:27 07/06/19 09:21 Phenergan PO 25 mg Q6H PRN Administration Nausea/Vomiting Senna/Docusate Sodium 1 tab 07/04/19 21:00 07/09/19 09:11 Senokot S PO Not Given BID [facility] Sodium Chloride 10 ml 07/08/19 21:00 07/09/19 09:14 Flush - Normal Saline IVF 10 ml Q12HR [facility] Administration Sodium Chloride 10 ml 07/08/19 15:12 07/09/19 15:09 Flush - Normal Saline IVF 10 ml PRN PRN Administration Saline Flush Tamsulosin HCl 0.4 mg 07/04/19 09:00 07/09/19 09:11 Flomax PO 0.4 mg DAILY [facility] Administration - Exam General Appearance: NAD, awake alert Eye: PERRL, anicteric sclera ENT: normocephalic atraumatic, no oropharyngeal lesions Neck: supple, symmetric, no JVD, no thyromegaly Heart: RRR, no murmur, no gallops, no rubs Respiratory: CTAB, no wheezes, no rales, no ronchi Gastrointestinal: soft, non-tender, non-distended, normal bowel sounds Extremities: no cyanosis, no clubbing, no edema Skin: normal turgor, no lesions, no rashes Neurological: cranial nerve grossly intact, normal sensation to touch, no focal deficits, no new deficit Musculoskeletal: normal tone, normal strength, no muscle wasting Musculoskeletal - other findings: Straight leg test raise produced no pain. Neg Babinski Psychiatric: normal affect, normal behavior, A&O x 3, oriented to person Hosp A/P - Plan EKG: normal sinus rhythm MRI: unable to see report, but showed diskitis or osteomyelitis CT hip: L3-L4 osteomyelitis This is 73 year old male with PMh of hypothyroidi, BPH, hypertension, two strokes, CVA who presented with left sided radiculopar pain, found to have possible diskitis or osteomyelitis #L3-L4 Osteomyelitis versus diskitis #Left leg radiculopathy - MRI shows L3-L4 osteomyelitis. Microabscesses present per ID not amenable to drainage - per neurosurgery no intervention - continue IV vancomycin and ceftriaxone for 6 weeks - continue oxycodone to 2.5 mg q4 hours prn. Continue flexeril 5 mg bid prn, cymbalta daily -. Continue gabapentin 600 mg tid, lidocaine patch #Vitamin B12 deficiency Anemia - B12 low at 197 - continue vitamin B12 2000 mcg daily . Intrinsic factor negative CKD - creatinine 1.34 at baseline Dispo: d/c to rehab DVT prophylaxis: SCDS due to high risk of falls Code status: full code
--- NOTE | 2019-07-09 16:19 | PRG ---
DATE OF SERVICE: 07/09/2019 SUBJECTIVE: Over the past 48 hours, the patient has displayed marked improvement in his intensity of pain and his mobility. He is able to stand up and walk. No headaches. No shortness of breath or abdominal pain. No diarrhea. Voiding without difficulty. OBJECTIVE: VITAL SIGNS: He has been afebrile. Pulse is a little bit on the tachycardic side. Respiratory rate 20. GENERAL: Awake, alert, and oriented. LUNGS: Clear. HEART: S1 and S2. Regular rate. ABDOMEN: Soft. Not distended or tender. : No bladder distention. LABORATORY DATA: White cell count 8.9, hemoglobin 12.2, platelets 288. Creatinine 1.34, potassium 3.9. Blood cultures, no growth in 5 days. ASSESSMENT AND DISCUSSION: Diskitis and microabscesses in paravertebral area and psaos muscle and osteomyelitis of L3 and L4, marked improvement on Rocephin and vancomycin. PICC line in place, and he will continue on treatment. The end date of therapy will be around August 16, approximately. Weekly labs. Job ID: [id number]
[2019-07-09] MEDS: Famotidine 20 MG TAB PO SCH (21:23)
[2019-07-09] MEDS: Levothyroxine Sodium 100 MCG TAB PO SCH (21:24)
[2019-07-09] MEDS: Lidocaine Patch Removal 1 EACH TOP SCH (21:30)
[2019-07-10 06:23] LABS: Hemoglobin 11.7 g/dL (14.0-18.0); Mean Corpuscular HGB CONC 32.9 g/dL (32.0-36.0); Mean Corpuscular Hemoglobin 28.6 pg (27.0-31.0); Mean Corpuscular Volume 86.9 fL (78.0-98.0); Mean Platelet Volume 6.5 fL (7.4-10.4); Platelet Count 299 thou/uL (130-400); RBC Distribution Width 13.1 % (11.5-14.5); Red Blood Cell (RBC) Count 4.07 mill/uL (4.70-6.10); White Blood Cell (WBC) Count 7.2 thou/uL (4.8-10.8)
[2019-07-10 06:37] LABS: ALT (SGPT) 15 U/L (8-55); AST (SGOT) 25 U/L (5-34); Albumin 3.2 g/dL (3.4-4.8); Alkaline Phosphatase 59 U/L (40-110); Anion Gap 11 mmol/L (10-20); BUN (Urea Nitrogen) 21 mg/dL (8.4-25.7); Bilirubin, Total 0.4 mg/dL (0.2-1.2); Calc. Creatinine Clearance 80 mL/min (70-130); Carbon Dioxide 25 mmol/L (23-31); Chloride 104 mmol/L (98-107); Estimated GFR-MDRD 58; Globulin 3.6 g/dL (2.4-3.5); Glucose 94 mg/dL (83-110); Potassium 4.7 mmol/L (3.5-5.1); Protein, Total 6.8 g/dL (5.8-8.1); Sodium 135 mmol/L (136-145)
[2019-07-10] MEDS: hydrALAZINE 20 MG/ML VIAL SLOW IVP PRN (07:56)
[2019-07-10] MEDS: Lidocaine 5% Patch TD SCH (08:00)
[2019-07-10] MEDS: hydrALAZINE 25 MG TAB PO SCH ×2 (08:11→15:02)
[2019-07-10] MEDS: Gabapentin 300 MG CAP PO SCH ×2 (08:11→15:02)
[2019-07-10] MEDS: Cyanocobalamin (Vitamin B-12) 1,000 MCG TAB PO SCH (08:11)
[2019-07-10] MEDS: Atorvastatin Calcium 40 MG TAB PO SCH (08:11)
[2019-07-10] MEDS: Aspirin 81 mg Enteric Coated Tablet PO SCH (08:11)
[2019-07-10] MEDS: Senokot S 8.6-50 MG TAB PO SCH (08:11)
[2019-07-10] MEDS: Tamsulosin HCl 0.4 MG CAP PO SCH (08:11)
[2019-07-10] MEDS: DULoxetine 30 MG CAP PO SCH (08:11)
[2019-07-10] MEDS: Enoxaparin Sodium 40 MG/0.4 ML SYRINGE SC SCH (08:11)
[2019-07-10] MEDS: oxyCODONE 5 MG TAB PO PRN ×3 (08:16→16:58)
[2019-07-10] MEDS: Vancomycin HCl 1 GM in Premix Bag 1 BAG IVPB SCH (10:57)
[2019-07-10 11:45] VITALS: TEMP 97.5
[2019-07-10] MEDS: cefTRIAXone\\ROCEPHIN 2 GM in Sodium Chloride 0.9% 100 ML IVPB SCH (15:03)
[2019-07-10 15:52] VITALS: BP 125/82
--- NOTE | 2019-07-10 17:36 | DIS ---
DATE OF ADMISSION: 07/03/2019 DATE OF DISCHARGE: 07/10/2019 DISCHARGE DIAGNOSES: L3-L4 osteomyelitis versus diskitis, left leg radiculopathy, vitamin B12 deficiency, anemia, and hypertension. SECONDARY DISCHARGE DIAGNOSES: Previous cerebrovascular accident, peripheral vascular disease, benign prostatic hyperplasia, hypertension, hyperlipidemia, hypothyroidism, and depression. CONSULTATIONS: Infectious Disease with Dr. Pro Nielsen, Neurosurgery with Dr. Blaine Britton. BRIEF HISTORY OF PRESENT ILLNESS: This is a 73-year-old male with a past medical history of peripheral vascular disease and hypertension, who had presented to the emergency room with sharp stabbing pain in his back that progressively got worse over the past few weeks. The patient went to see his primary care doctor, who ordered an MRI of his lower back and found that he had some microabscesses in his lumbar region and was requested to come to the ER. In the ER, the patient had normal vital signs except for a blood pressure of 212/101. The patient was given transdermal nitroglycerin, morphine, and was given vancomycin and Zosyn for the infection of his back. The patient had a chest x-ray done in the ER that showed no acute disease and an EKG, which showed normal sinus rhythm with a slightly prolonged MN interval. The patient was admitted for further workup. L3-L4 osteomyelitis versus diskitis: The patient was initially started on IV vancomycin and Zosyn. Blood cultures and urine cultures were negative. Infectious Disease was consulted and recommended that the patient be switched to IV vancomycin and ceftriaxone for 6 weeks until 08/15. MRI abnormalities were deemed e not amenable to drainage by neurosurgery or ID. The patient did have some issues with gait instability and slid down from his bed into the floor 2 or 3 times. One time he landed on his left hip and a CT pelvis was done on the , which showed no evidence of hip fracture, but confirmed osteomyelitis in the L3-L4 disk level. For the patient's pain, this was managed with lidocaine patch, gabapentin 600 mg t.i.d., oxycodone 2.5 mg q.4 hours p.r.n., and Flexeril 5 mg b.i.d. p.r.n. The patient was also started on Cymbalta, which he felt helped with his pain. On 07/08, the patient reported that his pain was more manageable and he was able to ambulate farther with physical therapy. I will hold his narcotics on discharge and see if his pain can be managed with the alternative medications and antibiotics. The patient will need IV antibiotics until August 15. He will be discharged to rehab today. Vitamin B12 deficiency anemia: The patient was noted to have a hemoglobin of 11.7 with an MCV of 86. Vitamin B12 level was checked and noted to be 197. Folate was normal. He was started on vitamin B12 of 2000 mcg daily. The patient needs outpatient followup with repeat B12 levels in a few months. His intrinsic factor was checked, which was negative. Hypertension: The patient was continued on hydralazine 25 mg t.i.d. Blood pressure at the time of discharge was 125/82. CKD: The patient's creatinine was 1.23 on the day of discharge. This is his baseline. DISCHARGE PHYSICAL EXAMINATION: VITAL SIGNS: Temperature 97.5, heart rate 96, respiratory rate 17, O2 saturation 98% on room air, and blood pressure _. GENERAL: The patient is overweight, he is alert, awake, and oriented x3. CVS: Regular rate and rhythm with no murmurs, rubs, or gallops. LUNGS: Clear to auscultation bilaterally. ABDOMEN: Positive bowel sounds, slightly distended. Distention resolved after having a bowel movement. EXTREMITIES: No edema. Musculoskeletal: The patient is able to lift up both legs without any pain. He has 5/5 strength to plantar flexion in both legs. He has intact sensation in both extremities. NEUROLOGICAL: Cranial nerves 2 through 12 are intact. The patient has 5/5 strength in his upper and lower extremities with no focal deficits. LABORATORY DATA: CBC 07/10/2019: hemoglobin 11.7 and hematocrit 35.4. BMP 07/10: sodium is 135. Rest of BMP is normal. Vitamin B12 : 197. Folate: 9.60. LFTs: AST 25, ALT 15, and alkaline phosphatase 59. UA 07/03: was normal with trace blood. Vancomycin trough on 07/09 :21.2. Intrinsic factor blocking antibody on 07/06 :1.1. PERTINENT IMAGING STUDIES: Chest x-ray on 07/03: No acute disease. CT pelvis on 07/05 :shows osteomyelitis involving the L3-L4 disk level with no evidence of acute pelvic or left hip fracture. DISCHARGE CONDITION: The patient is stable for discharge to rehab. ACTIVITY: The patient needs to ambulate with a walker. He needs outpatient PT. DIET: Heart healthy diet. DISCHARGE MEDICATIONS: 1. Vancomycin 1 g IV at 11:00 a.m. and 11:00 p.m. until August 15. 2. Ceftriaxone 2 g IV at 4:00 p.m. until August 15. 3. Vitamin B12 of 2000 mcg p.o. daily. 4. Flexeril 5 mg p.o. b.i.d. p.r.n. 5. Cymbalta 30 mg p.o. daily. 6. Neurontin 600 mg p.o. t.i.d. 7. Hydralazine 25 mg p.o. t.i.d. 8. Lidocaine patch one patch topical daily. 9. MiraLAX 17 g p.o. daily p.r.n. 10. Senokot one tablet p.o. b.i.d. 11. Aspirin 81 mg p.o. daily. 12. Atorvastatin 40 mg p.o. daily. 13. Levothyroxine 100 mcg p.o. q.p.m. 14. Flomax 0.4 mg p.o. daily. 15. Temazepam 15 mg p.o. at bedtime p.r.n. 16. Plavix 75 mg p.o. daily. 17. Duloxetine 30 mg p.o. daily. 18. Prozac 20 mg p.o. daily. 19. Gabapentin 600 mg p.o. t.i.d. DISCHARGE INSTRUCTIONS: The patient is to follow up with his PCP in a week. He should follow up with Dr. Nielsen in few weeks. The patient should get weekly CBC and CMP. He also needs follow up vitamin B12 levels after few months. He should return to the emergency room if he has any bowel or bladder incontinence or saddle anesthesia. Job ID: [id number] [facility]
--- NOTE | 2019-07-12 11:31 | CON ---
DATE OF CONSULTATION: HISTORY OF PRESENT ILLNESS: Mr. Sidhu is a 73-year-old white male, who was transferred from the rehab due to tremors and mental status change. He was found on initial evaluation to have elevated creatinine - acute kidney injury. Empiric volume repletion has been done and is currently on maintenance IV fluid. Of interest, this fluid has helped to improve his renal function as of this morning. Please note, he recently was admitted for an osteomyelitis/diskitis. He was seen by Dr. Nielsen. We are now following up this patient for his acute kidney injury. REVIEW OF SYSTEMS: Positive for confusion. Positive for tremors. No nausea. No vomiting. Decreased p.o. intake. No gross hematuria. No dysuria. No urinary frequency. No hematochezia. No melena. Appetite is decreased. Energy level is decreased. No headache. No syncopal episode. No diplopia. MEDICATIONS: Currently, the patient is on; 1. IV vancomycin b.i.d. dosing. 2. Normal saline at 60 mL/h. 3. Levothyroxine 100 mcg q.p.m. 4. Lidoderm patch. 5. Hydrocodone q.4 p.r.n. 6. Prozac 20 mg at bedtime. 7. Famotidine 20 mg p.o. b.i.d. 8. Lovenox 40 mg subcu daily. 9. Clopidogrel 75 mg tablet once a day. PAST MEDICAL HISTORY: Includes the following; 1. Hypothyroidism, recent diagnosis of osteomyelitis/diskitis. 2. Long-standing hypertension. 3. Depression. 4. Hyperlipidemia. 5. BPH. 6. Status post CVA. 7. Peripheral vascular disease. PAST SURGICAL HISTORY: Status post carotid endarterectomy, status post left knee surgery, status post colonoscopy ? SOCIAL HISTORY: The patient lives in [place] with his daughter. He is a . He has 2 children. No history of smoking. No alcohol intake. No IV drug abuse. No blood transfusion. He is a retired employee for [employer]. ALLERGIES: IODINE. TRAUMA: None. IMMUNIZATIONS: Up-to-date. HOSPITALIZATIONS: Please see past medical history. FAMILY HISTORY: No family history of ESRD. PHYSICAL EXAMINATION: VITAL SIGNS: Blood pressure is 180/107 before BP medications, heart rate 103, respiratory rate 14, temperature 97.5, and pulse ox 98%. GENERAL: Awake, alert, comfortable, not in distress. SKIN: Adequate turgor. HEENT: He has pinkish conjunctivae. Anicteric sclerae. NECK: No neck mass. No carotid bruits. No JVD. CHEST: No deformities. LUNGS: Clear breath sounds. HEART: Normal sinus rhythm. He has a grade 2/6 systolic murmur. No gallops. No rubs. ABDOMEN: Globular, soft, and nontender. No masses. EXTREMITIES: No edema. No deformities. NEUROLOGICAL: The patient is oriented to 3 spheres. Moving all extremities. No tremors. No asterixis. LABORATORY DATA: On July 12, 2019; white count 6, hemoglobin 11.2. Sodium 141, potassium 3.9, chloride 107, carbon dioxide 27, BUN 22, creatinine 1.23, glucose 95, and calcium 8.8. GFR 58 mL/minute. Troponin I 0.033. On July 11, 2019; BUN 27, creatinine 1.52. On July 10, 2019; creatinine 1.23. Urinalysis, relatively benign. No casts noted. ASSESSMENT AND PLAN: 1. Acute kidney injury - most likely hemodynamically-mediated renal dysfunction, much improved with empiric volume repletion. My suggestion is to continue maintenance IV fluid with this patient. Please note, creatinine is much improved from 1.52 to 1.23. There is no indication for any dialytic intervention with this patient. Continue supportive care. 2. Hypertension. I would suggest we continue his hydralazine 25 mg p.o. t.i.d. Adjust BP medications as needed. 3. Transient mental status change, much improved. This could be secondary to volume depletion. Agree with current management. Recheck basic metabolic panel and CBC in a.m. Job ID: [id number] [facility]
== END 2019-07-10 18:12 | DRG 539 ==
LOC: ERS 16:56 → T4-A 18:17
PROVIDERS: ADMIT Internal Medicine; ATTEND Internal Medicine
PROC: 02HV33Z Insertion of Infusion Device into Superior Vena Cava, Percutaneous Approach (ICD-10-PCS; principal; 2019-07-06)
DX: M46.26 Osteomyelitis of vertebra, lumbar region (principal); K68.12 Psoas muscle abscess; N17.9 Acute kidney failure, unspecified; A18.01 Tuberculosis of spine; M46.46 Discitis, unspecified, lumbar region; M54.16 Radiculopathy, lumbar region; D64.9 Anemia, unspecified; E53.8 Deficiency of other specified B group vitamins; I73.9 Peripheral vascular disease, unspecified; N40.0 Benign prostatic hyperplasia without lower urinary tract symptoms; E78.5 Hyperlipidemia, unspecified; F32.9 Major depressive disorder, single episode, unspecified; E03.9 Hypothyroidism, unspecified; R26.9 Unspecified abnormalities of gait and mobility; I12.9 Hypertensive chronic kidney disease with stage 1 through stage 4 chronic kidney disease, or unspecified chronic kidney disease; N18.9 Chronic kidney disease, unspecified; Z91.041 Radiographic dye allergy status; Z91.013 Allergy to seafood; Z86.73 Personal history of transient ischemic attack (TIA), and cerebral infarction without residual deficits; E86.9 Volume depletion, unspecified
CPT/HCPCS: 36415; 36416; 36569; 71045; 71275; 72191; 72192; 74175; 80048; 80053; 80202; 81003; 81015; 82550; 82607; 82746; 83605; 83880; 85025; 85027; 85610; 85652; 85730; 86140; 86340; 87040; 87086; 93005; 96361; 96365; 96367; 96374; 96375; C1751; J0360; J0696; J1200; J1644; J1650; J2270; J2405; J2543; J2930; J3370; J3490; J7050; Q0169; Q9966; S0028

== ENCOUNTER 2019-07-11 17:22 | Observation (INO) | payer MEDICARE ==
[2019-07-11 18:11] LABS: #Basophils 0.1 thou/uL (0.0-0.2); #Eosinphils 0.7 thou/uL (0.0-0.7); #Lymphocytes 0.7 thou/uL (1.20-3.40); #Monocytes 0.8 thou/uL (0.11-0.59); #Neutrophils 6.3 thou/uL (1.40-6.50); %Basophils 0.6 % (0.0-1.0); %Eosinophils 8.4 % (0.0-10.0); %Lymphocytes 8.7 % (21.0-51.0); %Monocytes 9.7 % (0.0-10.0); %Neutrophils 72.6 % (42.0-75.0); Hemoglobin 12.2 g/dL (14.0-18.0); Mean Corpuscular HGB CONC 32.7 g/dL (32.0-36.0); Mean Corpuscular Hemoglobin 28.5 pg (27.0-31.0); Mean Corpuscular Volume 87.1 fL (78.0-98.0); Mean Platelet Volume 6.3 fL (7.4-10.4); Platelet Count 338 thou/uL (130-400); RBC Distribution Width 12.9 % (11.5-14.5); White Blood Cell (WBC) Count 8.6 thou/uL (4.8-10.8)
[2019-07-11 18:31] LABS: ALT (SGPT) 19 U/L (8-55); AST (SGOT) 19 U/L (5-34); Albumin 3.6 g/dL (3.4-4.8); Alkaline Phosphatase 84 U/L (40-110); Anion Gap 13 mmol/L (10-20); BUN (Urea Nitrogen) 27 mg/dL (8.4-25.7); Bilirubin, Total 0.2 mg/dL (0.2-1.2); Calc. Creatinine Clearance 0 mL/min (70-130); Calcium 9.1 mg/dL (7.8-10.44); Carbon Dioxide 27 mmol/L (23-31); Chloride 103 mmol/L (98-107); Estimated GFR-MDRD 45; Globulin 3.1 g/dL (2.4-3.5); Glucose 99 mg/dL (83-110); Potassium 4.5 mmol/L (3.5-5.1); Protein, Total 6.7 g/dL (5.8-8.1); Sodium 138 mmol/L (136-145)
[2019-07-11] MEDS ORDERED: Acetaminophen 500 MG TAB ONE (18:46)
[2019-07-11 18:54] LABS: Bilirubin Negative (Negative); Blood, Urine Negative (Negative); Clarity Clear (Clear); Glucose, Urine (Dipstick) Normal (Negative); Leukocyte Negative Leu/uL (Negative); Nitrite Negative (Negative); Protein, Urine (Dipstick) 10 mg/dL (Neg-Trace); Urobilinogen Normal mg/dL (Less than 2)
--- NOTE | 2019-07-11 19:45 | CT ---
CT BRAIN WITHOUT CONTRAST: HISTORY: Altered mental status, dizziness and headache FINDINGS: There are changes of cortical atrophy and chronic small vessel ischemic disease, stable since No evidence of acute infarct, hemorrhage, midline shift or abnormal extra-axial fluid collections is seen. The ventricular size is appropriate and the basilar cisterns are patent. The bony calvarium is intact. IMPRESSION: No CT evidence of acute intracranial process.
[2019-07-11 21:00] LABS: Magnesium 2.1 mg/dL (1.6-2.6); Phosphorus 2.7 mg/dL (2.3-4.7)
[2019-07-11] MEDS ORDERED: Bisacodyl 5 MG TAB PO PRN (21:08)
[2019-07-11] MEDS ORDERED: Acetaminophen 325 MG TAB PO PRN (21:08)
[2019-07-11] MEDS ORDERED: Ondansetron PF 4 MG/2 ML Vial IVP PRN (21:08)
--- NOTE | 2019-07-11 21:22 | PDOC.BPN ---
- Brief Progress Note pt with hypothyroidism , recently discharge for lumbar osteomyelitis with vanco and rocphein to SNF and recent added neurontin and flexeril developed motor jerks today in SNF ,no loss of consciousness , transferred to ER and symptoms improving now . possible medication induced , head ct neg , will hold flexeril and neurontin for now , continue other meds, admit to observe for next 24 hrs , if no recurrence , will plan for dc back to snf, IF RECURRENCE OVERNIGHT , WILL obtain EEG and MRI brain with neuro eval for seizures
[2019-07-11 21:52] LABS: Vancomycin, Trough 20.4 ug/mL
[2019-07-11] MEDS ORDERED: Sodium Chloride 0.45% 1,000 ML IV SCH (23:15)
[2019-07-12] MEDS: Sodium Chloride 0.9% 1,000 ML IV SCH ×2 (00:06→15:44)
[2019-07-12] MEDS: hydrALAZINE 20 MG/ML VIAL SLOW IVP PRN ×7 (00:06→23:38)
[2019-07-12] MEDS: HYDROcodone/Acetaminophen 5/325 mg Tablet PO PRN ×5 (00:08→19:44)
[2019-07-12] MEDS ORDERED: Lorazepam 2 MG/ML VIAL SLOW IVP SCH ×2 (01:46→12:00)
[2019-07-12 02:16] VITALS: BMI 29.4
[2019-07-12] MEDS ORDERED: Polyethylene Glycol 3350 17 GM Packet PO PRN (02:26)
[2019-07-12 05:42] LABS: Anion Gap 11 mmol/L (10-20); BUN (Urea Nitrogen) 22 mg/dL (8.4-25.7); Calc. Creatinine Clearance 80 mL/min (70-130); Calcium 8.8 mg/dL (7.8-10.44); Carbon Dioxide 27 mmol/L (23-31); Chloride 107 mmol/L (98-107); Estimated GFR-MDRD 58; Glucose 95 mg/dL (83-110); Potassium 3.9 mmol/L (3.5-5.1); Sodium 141 mmol/L (136-145)
[2019-07-12 05:48] LABS: Troponin I 0.033 ng/mL (< 0.028)
[2019-07-12 06:21] LABS: Band 4 % (5-11); Eosinophils 4 % (0-10); Hemoglobin 11.2 g/dL (14.0-18.0); Lymphocytes 10 % (21-51); MDiff Complete? YES; Mean Corpuscular HGB CONC 32.7 g/dL (32.0-36.0); Mean Corpuscular Hemoglobin 28.5 pg (27.0-31.0); Mean Corpuscular Volume 87.3 fL (78.0-98.0); Mean Platelet Volume 6.5 fL (7.4-10.4); Monocytes 10 % (0-10); Neutrophil 70 % (42-75); Platelet Count 324 thou/uL (130-400); Platelet Morphology Comment Appears Adequate; RBC Distribution Width 12.9 % (11.5-14.5); RBC Morphology Normal; Reactive Lymphocytes 1 % (0-10); Red Blood Cell (RBC) Count 3.93 mill/uL (4.70-6.10)
[2019-07-12] MEDS: Cyanocobalamin (Vitamin B-12) 1,000 MCG TAB PO SCH (08:10)
[2019-07-12] MEDS: DULoxetine 30 MG CAP PO SCH (08:10)
[2019-07-12] MEDS: Tamsulosin HCl 0.4 MG CAP PO SCH (08:12)
[2019-07-12] MEDS: Clopidogrel Bisulfate 75 MG TAB PO SCH (08:12)
[2019-07-12] MEDS: Famotidine 20 MG TAB PO SCH ×2 (08:12→20:52)
[2019-07-12] MEDS: Aspirin 81 mg Enteric Coated Tablet PO SCH (08:12)
[2019-07-12] MEDS: FLUoxetine HCl 20 MG CAP PO SCH (08:12)
[2019-07-12] MEDS: Senokot S 8.6-50 MG TAB PO SCH ×2 (08:13→20:55)
[2019-07-12] MEDS: Lidocaine 5% Patch TD SCH (08:13)
[2019-07-12] MEDS: hydrALAZINE 25 MG TAB PO SCH ×3 (08:13→20:52)
[2019-07-12] MEDS: Enoxaparin Sodium 40 MG/0.4 ML SYRINGE SC SCH (08:13)
--- NOTE | 2019-07-12 11:16 | RAD ---
Exam: Chest one view HISTORY:Altered mental status. Comparison: 07/03/2019 FINDINGS: Cardiac silhouette:Normal cardiac silhouette Lines and tubes: Sided PICC line terminating in the caval-atrial junction. Aorta: Slightly elongated Pulmonary vessels: Normal Costophrenic angles: Clear LUNGS: No masses or consolidation. Diminished lung volumes, likely due to a poor inspiratory effort. Pneumothorax: None Osseous abnormalities: None IMPRESSION: No acute cardiopulmonary process.
[2019-07-12] MEDS: Vancomycin HCl 1 GM in Premix Bag 1 BAG IVPB SCH ×2 (11:22→22:25)
--- NOTE | 2019-07-12 12:59 | MRI ---
Exam: Brain MRI without contrast HISTORY: Seizure. COMPARISON: 12/24/2018 FINDINGS: Limited evaluation due to motion degradation on multiple sequences Calvarial marrow signal intensity: Appropriate T1 signal Gradient echo sequence: No hemorrhage Brain parenchyma: No obvious parenchymal mass, mass effect or midline shift. Age-appropriate atrophy. Cortical negrete-white matter differentiation: Preserved Restricted diffusion: Arterial flow is maintained. Questionable small focus of restricted diffusion i nvolving the right subinsular white matter White matter signal intensities: T2, FLAIR white matter hyperintensities due to chronic small vessel ischemic changes Coronal images: No MR evidence of mesial temporal sclerosis. Sinuses: Minimal paranasal sinus mucosal thickening IMPRESSION: 1. Questionable small focus of restricted diffusion involving the right subinsular white matter 2. Age-appropriate atrophy 3. Chronic small vessel ischemic changes of the white matter 4. No evidence of mesial temporal sclerosis
--- NOTE | 2019-07-12 15:22 | CON ---
DATE OF CONSULTATION: 07/12/2019 Telemedicine consult CHIEF COMPLAINT: Episodes of possible seizure. HISTORY OF PRESENT ILLNESS: Most of that history was obtained from the chart and nursing staff. The patient never had seizures before, but this is the first time, he had a seizure-like episode. At the long-term, when the nurse went to give him his medication, he was staring off into space and had a seizure, and he was brought to the ER via EMS and even during the EMS transit, he had 2 episodes per chart. The patient reports he never had seizures and this is the first time. PAST MEDICAL HISTORY: Hypothyroidism, benign prostatic hypertrophy, hypertension, CVA, and left carotid endarterectomy in December 2018. Also, he had 3 to 4 strokes this year, when he normally has low blood pressure per the patient. PAST SURGICAL HISTORY: Left knee arthroplasty, left carotid endarterectomy. FAMILY HISTORY: Negative for stroke. Mother at 67 from cancer. Father at 63 from stroke. Three children are healthy, except for 1 daughter, who passed at 42 from [place]. The patient had 11 siblings, all have passed on and they do have heart disease in the family. REVIEW OF SYSTEMS: PULMONARY: Negative for shortness of breath or cough. GI: Negative for nausea, vomiting, or diarrhea. CARDIAC: Negative for chest pain and palpitations. DERMATOLOGIC: Negative for skin lesions. OPHTHALMOLOGIC: Negative for any vision problems. PSYCHIATRIC: Negative for depression or anxiety. LABORATORY DATA: His current lab workup; white count 6, hemoglobin 11.2, hematocrit 34.3, platelet count 324. Sodium 141, potassium 3.9, chloride 107, bicarb 27, BUN 22, creatinine 1.23, and troponin I 0.033. Liver functions are within normal limits. Urinalysis is negative. Toxicology is also positive for vancomycin trough levels at 20.4. IMAGING STUDIES: His CT of the head was negative for any acute event. I have requested an MRI of the brain and MRI was completed by the time of this dictation. The patient had small focus of restricted diffusion in the right subinsular white matter age-appropriate atrophy, chronic small-vessel ischemic changes. No evidence of mesial temporal sclerosis. PHYSICAL EXAMINATION: VITAL SIGNS: Temperature 97.5, pulse 103, blood pressure 176/83, respiratory rate 14, O2 saturations 98. GENERAL APPEARANCE: Well-built, well-nourished man, who is comfortable in bed. CHEST: Clear vesicular breathing. CARDIOVASCULAR: S1 and S2 heard. No murmurs. ABDOMEN: Soft and nontender. NEUROLOGICAL: Higher intellectual functions normal. Orientation to time, place , and person. Cranial nerves, normal extraocular movements. Normal sensation of face. No visual abnormalities noted, and tongue midline, no atrophy noted. Normal elevation of palate. Normal hearing. No facial asymmetry noted. Motor, bulk normal, tone normal. Strength 5/5 throughout in iliopsoas, hamstrings, quadriceps, ankle dorsiflexion, plantar flexion, deltoid, biceps, triceps, wrist extension and flexion, finger extension and flexion bilaterally. Sensory examination, normal to touch bilaterally upper and lower extremities. Cerebellar, normal finger-to- nose and [id number]. Deep tendon reflexes through 3+ throughout. IMPRESSION: The patient is an elderly man, who is 73 years old. He has had 3 to 4 events, which were witnessed seizures. He never had any prior seizures, and there is no structural abnormality other than white matter changes on the MRI. His examination currently is normal. Likely, he might have had a few seizures due to unknown cause, possibly a small stroke focus with gliosis serving as a seizure focus. TREATMENT RECOMMENDATIONS: I would suggest starting him on Keppra 500 mg b.i.d. for stroke prophylaxis. Please have the patient follow up with Dr. Oscar as outpatient. Job ID: [id number] [facility]
[2019-07-12] MEDS: cefTRIAXone\\ROCEPHIN 2 GM in Sodium Chloride 0.9% 100 ML IVPB SCH (15:45)
--- NOTE | 2019-07-12 17:40 | PDOC.HOSPP ---
- Subjective Encounter Date: 07/12/19 Encounter Time: 10:00 Subjective: pt up in bed states that when he gets pain he shakes, however i called the care home and the nurse stated that at 1645 pt was starring and was jerking upper and lower ext.He does not remember this event. - Objective Vital Signs & Weight: Vital Signs (12 hours) Temp Pulse Resp BP BP Pulse Ox 07/12/19 15:42 104 H 07/12/19 11:29 102 H 184/101 H 07/12/19 08:14 106 H 180/107 H 07/12/19 08:13 106 H 07/12/19 08:00 98 07/12/19 07:30 97.5 F L 103 H 14 176/83 H 98 Weight Weight 229 lb 6.4 oz I&O: 07/11/19 07/12/19 07/13/19 06:59 06:59 06:59 Intake Total 1340 Balance 1340 Result Diagrams: 07/12/19 04:42 07/12/19 04:42 Hospitalist ROS - Review of Systems Respiratory: denies: cough, dry, shortness of breath, hemoptysis, SOB with excertion, pleuritic pain, sputum, wheezing, other Gastrointestinal: denies: nausea, vomiting, abdominal pain, diarrhea, constipation, melena, hematochezia, other - Medication Medications: Active Medications Generic Name Dose Route Start Last Admin Trade Name Freq PRN Reason Stop Dose Admin Hydrocodone Bitart/Acetaminophen 1 tab 07/11/19 21:08 07/12/19 15:42 [place] 5/325 PO 1 tab Q4H PRN Administration Moderate Pain (4-6) Aspirin 81 mg 07/12/19 09:00 07/12/19 08:12 Ecotrin PO 81 mg DAILY SKYLER Administration Clopidogrel Bisulfate 75 mg 07/12/19 09:00 07/12/19 08:12 Plavix PO 75 mg DAILY SKYLER Administration Cyanocobalamin 2,000 mcg 07/12/19 09:00 07/12/19 08:10 Vitamin B-12 PO 2,000 mcg DAILY SKYLER Administration Duloxetine HCl 30 mg 07/12/19 09:00 07/12/19 08:10 Cymbalta PO 30 mg DAILY SKYLER Administration Enoxaparin Sodium 40 mg 07/12/19 09:00 07/12/19 08:13 Lovenox SC 40 mg 0900 SKYLER Administration Famotidine 20 mg 07/12/19 09:00 07/12/19 08:12 Pepcid PO 20 mg BID SKYLER Administration Fluoxetine HCl 20 mg 07/12/19 09:00 07/12/19 08:12 Prozac PO 20 mg DAILY SKYLER Administration Hydralazine HCl 10 mg 07/11/19 21:12 07/12/19 11:29 Apresoline SLOW IVP 10 mg Q15MIN PRN Administration Hypertension Hydralazine HCl 25 mg 07/12/19 09:00 07/12/19 15:42 Apresoline PO 25 mg TID SKYLER Administration Sodium Chloride 1,000 mls @ 60 mls/hr 07/11/19 21:15 07/12/19 15:44 Normal Saline 0.9% IV 1,000 mls .[id number] SKYLER Administration Ceftriaxone Sodium 2 gm/ 100 mls @ 200 mls/hr 07/12/19 16:00 07/12/19 15:45 Sodium Chloride IVPB 100 mls [id number]@1600 SKYLER Administration Vancomycin HCl 1 gm/ Device 200 mls @ 200 mls/hr 07/12/19 11:00 07/12/19 11: 22 IVPB 200 mls 1100,2300 SKYLER Administration Lidocaine 1 patch 07/12/19 09:00 07/12/19 08:13 Lidoderm 5% Patch TD 1 patch DAILY SKYLER Administration Senna/Docusate Sodium 1 tab 07/12/19 09:00 07/12/19 08:13 Senokot S PO Not Given BID SKYLER Sodium Chloride 10 ml 07/12/19 09:00 07/12/19 08:14 Flush - Normal Saline IVF Not Given Q12HR SKYLER Tamsulosin HCl 0.4 mg 07/12/19 09:00 07/12/19 08:12 Flomax PO 0.4 mg DAILY SKYLER Administration - Exam Neck: negative: supple, symmetric, no JVD, no thyromegaly, no lymphadenopathy, no carotid bruit, JVD Heart: negative: RRR, no murmur, no gallops, no rubs, normal peripheral pulses, irregular, diminshed peripheral pulses, murmur present, II/IV, III/IV Respiratory: negative: CTAB, no wheezes, no rales, no ronchi, normal chest expansion, no tachypnea, normal percussion, rales, rhonchi, tachypneic, wheezes Hosp A/P (1) Acute metabolic encephalopathy Code(s): G93.41 - METABOLIC ENCEPHALOPATHY Status: Acute (2) Seizure Code(s): R56.9 - UNSPECIFIED CONVULSIONS Status: Acute (3) Diskitis Code(s): M46.40 - DISCITIS, UNSPECIFIED, SITE UNSPECIFIED Status: Acute (4) Stroke Code(s): I63.9 - CEREBRAL INFARCTION, UNSPECIFIED Status: Acute (5) Hypertension Code(s): I10 - ESSENTIAL (PRIMARY) HYPERTENSION Status: Acute (6) Hypothyroidism Code(s): E03.9 - HYPOTHYROIDISM, UNSPECIFIED Status: Acute - Plan nurse from care home states that pt was starring when he upper and lower ext had jerking movements. will get neurology and get mri brain. will continue abx. He was on all his meds earlier at the hospital. Not sure if this is due to pain vs seizure.
[2019-07-12] MEDS: ALPRAZolam 0.25 MG TAB PO PRN (19:48)
[2019-07-12] MEDS: Levothyroxine Sodium 100 MCG TAB PO SCH (20:52)
[2019-07-12] MEDS: Atorvastatin Calcium 40 MG TAB PO SCH (20:52)
[2019-07-12] MEDS: Gabapentin 300 MG CAP PO SCH (20:52)
[2019-07-12] MEDS: Lidocaine Patch Removal TOP SCH (20:58)
--- NOTE | 2019-07-12 21:13 | HP ---
TIME: 08:59 p.m. PRESENTING COMPLAINT: Abnormal shakes. HISTORY OF PRESENT ILLNESS: Mr. Peña Sidhu is a 73-year-old male with a past medical history of hypothyroidism, hyperlipidemia, recent lumbar spinal abscess, on long-term antibiotics with vancomycin and Rocephin, admitted 1 week ago and discharged yesterday to SNF. The patient was noted today to have abnormal shakes and was a bit drowsy and transferred to the ER. He was admitted by the daughter in the ER and daughter reports the patient was still having shakes while in the ER. He has also been complaining of persistent left-sided low back pain. He was given pain. His shakes were initially to both upper and lower extremities, but later went off to just involving the lower extremities. Shakes had resolved since the last 30 minutes. The patient does not have any recollection of the shakes. Daughter states the patient was awake and conversant during periods of intermittent jerking shakes of the legs. The patient denies any headache or dizziness. He denies any chest pain. He recalled having his regular meals and medications today. Daughter report new onset low back pain 1 week ago and was started on Flexeril before being admitted and workup showed evidence of spinal abscess. The patient has not had any back surgery in the past. He is a bit drowsy now, but is able to give history. PAST MEDICAL HISTORY: Significant for hypothyroidism, anxiety disorder, and intermittent low back and hip pain. PAST SURGICAL HISTORY: None. SOCIAL HISTORY: The patient previously resides at home. He has a history of lifelong nonsmoking. No history of alcohol use. Currently discharged to rehab facility yesterday. FAMILY HISTORY: Noncontributory, but the patient denies any history of cardiovascular disease or dementia. ALLERGIES: SIGNIFICANT FOR IODINE AND SHELLFISH-DERIVED PRODUCT. HOME MEDICATIONS: 1. Plavix 75 daily. 2. Flomax 0.4 daily. 3. Hydroxyzine 25 p.r.n. 4. Lipitor 40 daily. 5. Synthroid 100 daily. 6. Aspirin 81 daily. 7. Fluoxetine 20 daily. 8. Temazepam 15 mg at bedtime. 9. Flexeril 10 mg q.8 p.r.n. 10. Lidoderm patch apply to left lower back q.12 p.r.n. PHYSICAL EXAMINATION: CURRENT VITAL SIGNS: Blood pressure 166/96, pulse 73, respiratory rate 16, and O2 93% on room air. GENERAL: Elderly male, slightly drowsy, but easily arousable and conversant on room air. HEENT: Head is atraumatic and normocephalic. Pupils equal and reactive to light. Extraocular motor movement intact. Noted perioral seborrheic dermatitis changes. NECK: No JVD. No carotid bruit. RESPIRATORY: Good air entry bilaterally. No crepitations. CARDIOVASCULAR: S1 and S2. No murmur. GI: Abdomen is full, soft, and nontender. Bowel sounds positive. BACK: No spinal or vertebral area tenderness. No CVA tenderness. Notable lidocaine patch over the left posterior hip. MUSCULOSKELETAL: Muscle tone normal and symmetrical bilaterally. No pedal edema. No calf tenderness. NEUROLOGIC: The patient is conversant and oriented x3. Tone and deep tendon reflexes are 2+ bilaterally. No pronator drift. Yrblsu-[id number]-[id number] test is normal, though mild tremor elicited no resting tremor noted. No abnormal jerking motor function noted during 40 minutes of interview. LABORATORY DATA: WBC 8.6, hemoglobin 12.2, and platelets 338. Chemistry, 138, creatinine 1.5. AST and alkaline phosphatase normal. CK 4.0. Troponin 0.043. Urinalysis was negative. Head CT scan shows no acute intracranial pathology. IMPRESSION: 1. Abnormal extremity motor function - possibly due to Flexeril induced, we will hold Flexeril for now. We will give gentle IV fluid hydration and follow. If recurrent symptoms overnight, we will obtain MRI and EEG in a.m. Doubt seizure disorder at this time. We will obtain serum prolactin level now. 2. Hypertension - family reports fluctuating BP with intermittent at home in the past. We will monitor for now. We will do IV hydralazine p.r.n. 3. Recent spinal abscess - continue antibiotics with vancomycin and Rocephin. We will obtain repeat vanco level. 4. Elevated creatinine, slightly increased from baseline of 1.2 yesterday. We will follow with gentle IV fluid hydration. Avoid elevated vanco trough, see around baseline. 5. Deep venous thrombosis prophylaxis, subcutaneous Lovenox. 6. Advanced directive, the patient is full code. Discussed with the patient and daughter. 7. Disposition: We will admit to observation. 8. Possible hospital stay of less than 2 days. Time spent on review of record, discussion with the patient, and evaluation is greater than 60 minutes. Job ID: [id number]
[2019-07-12] MEDS: Temazepam 15 MG CAP PO PRN (22:25)
[2019-07-12 22:48] LABS: Bilirubin Negative (Negative); Blood, Urine Negative (Negative); Clarity Clear (Clear); Glucose, Urine (Dipstick) Normal (Negative); Leukocyte Negative Leu/uL (Negative); Nitrite Negative (Negative); Protein, Urine (Dipstick) Negative (Neg-Trace); Urobilinogen Normal mg/dL (Less than 2)
[2019-07-13] MEDS: HYDROcodone/Acetaminophen 5/325 mg Tablet PO PRN ×3 (02:18→14:40)
[2019-07-13] MEDS ORDERED: Labetalol HCl 100 MG/20 ML VIAL SLOW IVP PRN (04:33)
[2019-07-13 05:58] LABS: #Basophils 0.1 thou/uL (0.0-0.2); #Eosinphils 0.7 thou/uL (0.0-0.7); #Lymphocytes 1.2 thou/uL (1.20-3.40); #Neutrophils 6.3 thou/uL (1.40-6.50); %Basophils 0.6 % (0.0-1.0); %Eosinophils 8.1 % (0.0-10.0); %Monocytes 10.4 % (0.0-10.0); Hemoglobin 11.6 g/dL (14.0-18.0); Mean Corpuscular HGB CONC 31.6 g/dL (32.0-36.0); Mean Corpuscular Hemoglobin 27.7 pg (27.0-31.0); Mean Corpuscular Volume 87.7 fL (78.0-98.0); Mean Platelet Volume 6.6 fL (7.4-10.4); Platelet Count 383 thou/uL (130-400); White Blood Cell (WBC) Count 9.3 thou/uL (4.8-10.8)
[2019-07-13 06:20] LABS: Anion Gap 11 mmol/L (10-20); BUN (Urea Nitrogen) 19 mg/dL (8.4-25.7); Calc. Creatinine Clearance 77 mL/min (70-130); Calcium 9.2 mg/dL (7.8-10.44); Carbon Dioxide 27 mmol/L (23-31); Chloride 105 mmol/L (98-107); Estimated GFR-MDRD 56; Glucose 91 mg/dL (83-110); Potassium 4.3 mmol/L (3.5-5.1); Sodium 139 mmol/L (136-145)
[2019-07-13] MEDS: Sodium Chloride 0.9% 1,000 ML IV SCH ×2 (06:23→23:17)
--- NOTE | 2019-07-13 08:57 | PDOC.HOSPP ---
- Subjective Encounter Date: 07/13/19 Encounter Time: 08:56 Subjective: no more shaking, alert - Objective Vital Signs & Weight: Vital Signs (12 hours) Temp Pulse Resp BP BP BP Pulse Ox 07/13/19 07:39 98.2 F 92 18 173/90 H 93 L 07/13/19 05:50 93 106/70 07/13/19 04:49 111 H 201/99 H 07/13/19 04:00 97.9 F 111 H 20 201/99 H 95 07/13/19 00:55 164/96 H 07/13/19 00:19 163/90 H 07/13/19 00:00 97.6 F 102 H 20 195/100 H 94 L 07/12/19 23:38 106 H 195/99 H 07/12/19 21:54 103 H 216/102 H Weight Weight 229 lb 6.4 oz I&O: 07/12/19 07/13/19 07/14/19 06:59 06:59 06:59 Intake Total 1580 Balance 1580 Result Diagrams: 07/13/19 04:44 07/13/19 04:44 Hospitalist ROS - Medication Medications: Active Medications Generic Name Dose Route Start Last Admin Trade Name Freq PRN Reason Stop Dose Admin Hydrocodone Bitart/Acetaminophen 1 tab 07/11/19 21:08 07/13/19 02:18 [place] 5/325 PO 1 tab Q4H PRN Administration Moderate Pain (4-6) Alprazolam 0.25 mg 07/12/19 17:37 07/12/19 19:48 Xanax PO 0.25 mg BIDPRN PRN Administration Anxiety Aspirin 81 mg 07/12/19 09:00 07/12/19 08:12 Ecotrin PO 81 mg DAILY SKYLER Administration Atorvastatin Calcium 40 mg 07/12/19 21:00 07/12/19 20:52 Lipitor PO 40 mg QPM SKYLER Administration Clopidogrel Bisulfate 75 mg 07/12/19 09:00 07/12/19 08:12 Plavix PO 75 mg DAILY SKYLER Administration Cyanocobalamin 2,000 mcg 07/12/19 09:00 07/12/19 08:10 Vitamin B-12 PO 2,000 mcg DAILY SKYLER Administration Duloxetine HCl 30 mg 07/12/19 09:00 07/12/19 08:10 Cymbalta PO 30 mg DAILY SKYLER Administration Enoxaparin Sodium 40 mg 07/12/19 09:00 07/12/19 08:13 Lovenox SC 40 mg 0900 SKYLER Administration Famotidine 20 mg 07/12/19 09:00 07/12/19 20:52 Pepcid PO 20 mg BID SKYLER Administration Fluoxetine HCl 20 mg 07/12/19 09:00 07/12/19 08:12 Prozac PO 20 mg DAILY SKYLER Administration Gabapentin 600 mg 07/12/19 21:00 07/12/19 20:52 Neurontin PO 600 mg TID SKYLER Administration Hydralazine HCl 10 mg 07/11/19 21:12 07/12/19 23:38 Apresoline SLOW IVP 10 mg Q15MIN PRN Administration Hypertension Hydralazine HCl 25 mg 07/12/19 09:00 07/12/19 20:52 Apresoline PO 25 mg TID SKYLER Administration Sodium Chloride 1,000 mls @ 60 mls/hr 07/11/19 21:15 07/13/19 06:23 Normal Saline 0.9% IV Not Given .[id number] SKYLER Ceftriaxone Sodium 2 gm/ 100 mls @ 200 mls/hr 07/12/19 16:00 07/12/19 15:45 Sodium Chloride IVPB 100 mls Q24HR@1600 SKYLER Administration Vancomycin HCl 1 gm/ Device 200 mls @ 200 mls/hr 07/12/19 11:00 07/12/19 22: 25 IVPB 200 mls 1100,2300 SKYLER Administration Levetiracetam 500 mg/ Device 100 mls @ 200 mls/hr 07/12/19 21:00 07/12/19 20: 52 IVPB 100 mls BID SKYLER Administration Labetalol HCl 20 mg 07/13/19 04:33 07/13/19 04:49 Normodyne SLOW IVP 20 mg Q4H PRN Administration SBP Greater Than 170 Levothyroxine Sodium 100 mcg 07/12/19 21:00 07/12/19 20:52 Synthroid PO 100 mcg QPM SKYLER Administration Lidocaine 1 patch 07/12/19 09:00 07/12/19 08:13 Lidoderm 5% Patch TD 1 patch DAILY SKYLRE Administration Miscellaneous Medication 1 each 07/12/19 21:00 07/12/19 20:58 Lidocaine Patch Removal TOP Not Given 2100 SKYLER Senna/Docusate Sodium 1 tab 07/12/19 09:00 07/12/19 20:55 Senokot S PO 1 tab BID SKYLER Administration Sodium Chloride 10 ml 07/12/19 09:00 07/12/19 20:56 Flush - Normal Saline IVF Not Given Q12HR SKYLER Sodium Chloride 10 ml 07/11/19 21:17 07/13/19 04:49 Flush - Normal Saline IVF 10 ml PRN PRN Administration Saline Flush Tamsulosin HCl 0.4 mg 07/12/19 09:00 07/12/19 08:12 Flomax PO 0.4 mg DAILY SKYLER Administration Temazepam 15 mg 07/12/19 17:43 07/12/19 22:25 Restoril PO 15 mg HS PRN Administration insomnia - Exam General Appearance: awake alert Neck: no JVD Heart: no murmur Respiratory: CTAB Gastrointestinal: soft, normal bowel sounds Extremities: 1+ LE edema Hosp A/P (1) Diskitis Code(s): M46.40 - DISCITIS, UNSPECIFIED, SITE UNSPECIFIED Status: Acute (2) Seizure Code(s): R56.9 - UNSPECIFIED CONVULSIONS Status: Acute (3) Stroke Code(s): I63.9 - CEREBRAL INFARCTION, UNSPECIFIED Status: Acute Qualifiers: CVA mechanism: thrombosis Laterality of affected vessel: right (4) Hypertension Code(s): I10 - ESSENTIAL (PRIMARY) HYPERTENSION Status: Chronic Qualifiers: Hypertension type: essential hypertension Qualified Code(s): I10 - Essential (primary) hypertension (5) Hypothyroidism Code(s): E03.9 - HYPOTHYROIDISM, UNSPECIFIED Status: Chronic Qualifiers: Hypothyroidism type: unspecified Qualified Code(s): E03.9 - Hypothyroidism , unspecified - Plan cont keppra, assa, statin
--- NOTE | 2019-07-13 09:01 | PRG ---
DATE OF SERVICE: 07/13/2019 SUBJECTIVE: Mr. Sidhu is a 73-year-old white male, who was seen for an acute kidney injury. He was initially seen in the ER and his creatinine was noted to be at 1.5 mg%. Empiric volume repletion was given with improvement of the renal function. Urinalysis was relatively benign. This suggested that acute kidney injury was a hemodynamically-mediated renal dysfunction. He was initially admitted for confusion and tremors. This morning, he voices no new complaints. He denies any chest pain or shortness of breath. OBJECTIVE: VITAL SIGNS: Blood pressure 173/90, heart rate 92, respiratory rate 18, temperature 98.2, pulse ox is 93%. GENERAL: Noted to be awake, alert, comfortable, not in overt distress. SKIN: Adequate turgor. HEENT: He has pinkish conjunctivae. Anicteric sclerae. NECK: No neck mass. No carotid bruits. No JVD. CHEST: No deformities. LUNGS: Clear breath sounds. HEART: Normal sinus rhythm. No murmur. No gallops. No rubs. ABDOMEN: Globular, soft, nontender, no masses. EXTREMITIES: No edema, no deformities. MEDICATIONS: Of July 13, 2019, reviewed. LABORATORY DATA: Of July 13, 2019, sodium 139, potassium 4.3, chloride 105, carbon dioxide 27, BUN 19, creatinine 1.27, glucose 91, calcium 9.2. Troponin I 0.020. ASSESSMENT AND PLAN: 1. Acute kidney injury - hemodynamically-mediated dysfunction. Continue supportive care. Hold off any diuretics or DANIEL inhibitor for the moment. No indication for any dialytic intervention. We will recheck basic metabolic profile in a.m. 2. Mental status change, resolved. 3. Hypertension. Adjust BP medications as needed. Consider increasing hydralazine to 50 mg tablet t.i.d. Job ID: [id number]
[2019-07-13] MEDS: Lidocaine 5% Patch TD SCH (09:16)
[2019-07-13] MEDS: DULoxetine 30 MG CAP PO SCH (09:18)
[2019-07-13] MEDS: Clopidogrel Bisulfate 75 MG TAB PO SCH (09:18)
[2019-07-13] MEDS: FLUoxetine HCl 20 MG CAP PO SCH (09:18)
[2019-07-13] MEDS: Senokot S 8.6-50 MG TAB PO SCH ×2 (09:19→20:36)
[2019-07-13] MEDS: hydrALAZINE 25 MG TAB PO SCH ×3 (09:19→20:36)
[2019-07-13] MEDS: Tamsulosin HCl 0.4 MG CAP PO SCH (09:20)
[2019-07-13] MEDS: Famotidine 20 MG TAB PO SCH ×2 (09:20→20:36)
[2019-07-13] MEDS: Enoxaparin Sodium 40 MG/0.4 ML SYRINGE SC SCH (09:20)
[2019-07-13] MEDS: Cyanocobalamin (Vitamin B-12) 1,000 MCG TAB PO SCH (09:20)
[2019-07-13] MEDS: Aspirin 81 mg Enteric Coated Tablet PO SCH (09:20)
[2019-07-13] MEDS: Gabapentin 300 MG CAP PO SCH ×3 (10:04→20:36)
[2019-07-13] MEDS: Vancomycin HCl 1 GM in Premix Bag 1 BAG IVPB SCH ×2 (12:58→23:18)
[2019-07-13] MEDS: cefTRIAXone\\ROCEPHIN 2 GM in Sodium Chloride 0.9% 100 ML IVPB SCH (16:13)
[2019-07-13] MEDS: Levothyroxine Sodium 100 MCG TAB PO SCH (20:36)
[2019-07-13] MEDS: Atorvastatin Calcium 40 MG TAB PO SCH (20:36)
[2019-07-13] MEDS: Lidocaine Patch Removal TOP SCH (20:49)
[2019-07-13 22:33] LABS: Vancomycin, Trough 18.7 ug/mL
[2019-07-14] MEDS: hydrALAZINE 20 MG/ML VIAL SLOW IVP PRN (04:18)
--- NOTE | 2019-07-14 07:38 | PDOC.HOSPP ---
- Subjective Encounter Date: 07/14/19 Encounter Time: 07:36 Subjective: awake, alert, no shaking - Objective Vital Signs & Weight: Vital Signs (12 hours) Temp Pulse Resp BP Pulse Ox 07/14/19 05:13 109 H 119/70 07/14/19 04:00 98.9 F 103 H 20 196/109 H 92 L 07/14/19 00:00 98.4 F 107 H 18 163/112 H 94 L 07/13/19 19:55 98.1 F 98 20 163/112 H 97 Weight Weight 229 lb 6.4 oz I&O: 07/13/19 07/14/19 07/15/19 06:59 06:59 06:59 Intake Total 1580 1040 Output Total 1025 Balance 1580 15 Result Diagrams: 07/13/19 04:44 07/13/19 04:44 Hospitalist ROS - Medication Medications: Active Medications Generic Name Dose Route Start Last Admin Trade Name Freq PRN Reason Stop Dose Admin Acetaminophen 650 mg 07/11/19 21:08 07/14/19 06:05 Tylenol PO 650 mg Q4H PRN Administration Headache/Fever/Mild Pain (1-3) Hydrocodone Bitart/Acetaminophen 1 tab 07/11/19 21:08 07/13/19 14:40 [place] 5/325 PO 1 tab Q4H PRN Administration Moderate Pain (4-6) Alprazolam 0.25 mg 07/12/19 17:37 07/12/19 19:48 Xanax PO 0.25 mg BIDPRN PRN Administration Anxiety Aspirin 81 mg 07/12/19 09:00 07/13/19 09:20 Ecotrin PO 81 mg DAILY SKYLER Administration Atorvastatin Calcium 40 mg 07/12/19 21:00 07/13/19 20:36 Lipitor PO 40 mg QPM SKYLER Administration Clopidogrel Bisulfate 75 mg 07/12/19 09:00 07/13/19 09:18 Plavix PO 75 mg DAILY SKYLER Administration Cyanocobalamin 2,000 mcg 07/12/19 09:00 07/13/19 09:20 Vitamin B-12 PO 2,000 mcg DAILY SKYLER Administration Duloxetine HCl 30 mg 07/12/19 09:00 07/13/19 09:18 Cymbalta PO 30 mg DAILY SKYLER Administration Enoxaparin Sodium 40 mg 07/12/19 09:00 07/13/19 09:20 Lovenox SC 40 mg 0900 SKYLER Administration Famotidine 20 mg 07/12/19 09:00 07/13/19 20:36 Pepcid PO 20 mg BID SKYLER Administration Fluoxetine HCl 20 mg 07/12/19 09:00 07/13/19 09:18 Prozac PO 20 mg DAILY SKYLER Administration Gabapentin 600 mg 07/12/19 21:00 07/13/19 20:36 Neurontin PO 600 mg TID SKYLER Administration Hydralazine HCl 10 mg 07/11/19 21:12 07/14/19 04:18 Apresoline SLOW IVP 10 mg Q15MIN PRN Administration Hypertension Sodium Chloride 1,000 mls @ 60 mls/hr 07/11/19 21:15 07/13/19 23:17 Normal Saline 0.9% IV 1,000 mls .[id number] SKYLER Administration Ceftriaxone Sodium 2 gm/ 100 mls @ 200 mls/hr 07/12/19 16:00 07/13/19 16:13 Sodium Chloride IVPB 100 mls Q24HR@1600 SKYLER Administration Vancomycin HCl 1 gm/ Device 200 mls @ 200 mls/hr 07/12/19 11:00 07/13/19 23: 18 IVPB 200 mls 1100,2300 SKYLER Administration Levetiracetam 500 mg/ Device 100 mls @ 200 mls/hr 07/12/19 21:00 07/13/19 20: 35 IVPB 100 mls BID SKYLER Administration Labetalol HCl 20 mg 07/13/19 04:33 07/13/19 04:49 Normodyne SLOW IVP 20 mg Q4H PRN Administration SBP Greater Than 170 Levothyroxine Sodium 100 mcg 07/12/19 21:00 07/13/19 20:36 Synthroid PO 100 mcg QPM SKYLER Administration Lidocaine 1 patch 07/12/19 09:00 07/13/19 09:16 Lidoderm 5% Patch TD 1 patch DAILY SKYLER Administration Miscellaneous Medication 1 each 07/12/19 21:00 07/13/19 20:49 Lidocaine Patch Removal TOP Not Given 2100 SKYLER Senna/Docusate Sodium 1 tab 07/12/19 09:00 07/13/19 20:36 Senokot S PO 1 tab BID SKYLER Administration Sodium Chloride 10 ml 07/12/19 09:00 07/13/19 20:54 Flush - Normal Saline IVF Not Given Q12HR SKYLER Sodium Chloride 10 ml 07/11/19 21:17 07/13/19 04:49 Flush - Normal Saline IVF 10 ml PRN PRN Administration Saline Flush Tamsulosin HCl 0.4 mg 07/12/19 09:00 07/13/19 09:20 Flomax PO 0.4 mg DAILY SKYLER Administration Temazepam 15 mg 07/12/19 17:43 07/12/19 22:25 Restoril PO 15 mg HS PRN Administration insomnia - Exam General Appearance: awake alert Neck: no JVD Heart: RRR, no murmur Respiratory: CTAB Gastrointestinal: soft, normal bowel sounds Extremities: 1+ LE edema Hosp A/P (1) Diskitis Code(s): M46.40 - DISCITIS, UNSPECIFIED, SITE UNSPECIFIED Status: Acute (2) Seizure Code(s): R56.9 - UNSPECIFIED CONVULSIONS Status: Acute (3) Stroke Code(s): I63.9 - CEREBRAL INFARCTION, UNSPECIFIED Status: Acute Qualifiers: CVA mechanism: thrombosis Laterality of affected vessel: right (4) Hypertension Code(s): I10 - ESSENTIAL (PRIMARY) HYPERTENSION Status: Chronic Qualifiers: Hypertension type: essential hypertension Qualified Code(s): I10 - Essential (primary) hypertension (5) Hypothyroidism Code(s): E03.9 - HYPOTHYROIDISM, UNSPECIFIED Status: Chronic Qualifiers: Hypothyroidism type: unspecified Qualified Code(s): E03.9 - Hypothyroidism , unspecified - Plan cont keppra, assa, statin cont iv antibx add metoprolol, increase hydralazinr to improve BP control
[2019-07-14] MEDS: Aspirin 81 mg Enteric Coated Tablet PO SCH (08:42)
[2019-07-14] MEDS: Gabapentin 300 MG CAP PO SCH ×3 (08:42→20:38)
[2019-07-14] MEDS: Tamsulosin HCl 0.4 MG CAP PO SCH (08:42)
[2019-07-14] MEDS: Famotidine 20 MG TAB PO SCH ×2 (08:42→20:37)
[2019-07-14] MEDS: Clopidogrel Bisulfate 75 MG TAB PO SCH (08:42)
[2019-07-14] MEDS: Cyanocobalamin (Vitamin B-12) 1,000 MCG TAB PO SCH (08:42)
[2019-07-14] MEDS: Senokot S 8.6-50 MG TAB PO SCH ×2 (08:42→20:48)
[2019-07-14] MEDS: DULoxetine 30 MG CAP PO SCH (08:42)
[2019-07-14] MEDS: FLUoxetine HCl 20 MG CAP PO SCH (08:42)
[2019-07-14] MEDS: Metoprolol Tartrate 25 MG TAB PO SCH ×2 (08:42→20:39)
[2019-07-14] MEDS: Enoxaparin Sodium 40 MG/0.4 ML SYRINGE SC SCH (08:43)
[2019-07-14] MEDS: HYDROcodone/Acetaminophen 5/325 mg Tablet PO PRN ×3 (10:00→17:06)
[2019-07-14] MEDS: Lidocaine 5% Patch TD SCH (10:03)
[2019-07-14] MEDS: hydrALAZINE 25 MG TAB PO SCH ×3 (10:35→20:47)
[2019-07-14] MEDS: Vancomycin HCl 1 GM in Premix Bag 1 BAG IVPB SCH ×2 (10:58→22:37)
[2019-07-14] MEDS: cefTRIAXone\\ROCEPHIN 2 GM in Sodium Chloride 0.9% 100 ML IVPB SCH (15:44)
--- NOTE | 2019-07-14 16:33 | SPC ---
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 TECHNIQUE: Catheter caliber: 5 [place] Catheter trim length:52 cm Catheter lumen number:single Catheter tip location:superior vena cava-right atrial junction. Vein accessed:left basilic Total fluoroscopy time: 0.7 min. Dose area product: 4519 mGy*cm^2 Signed, informed consent was obtained. A tourniquet was applied at the proximal aspect of the arm. Th e arm was prepped and draped in the usual sterile fashion. A 25-gauge needle was used to applied buffered lidocaine superficially. The vein was punctured with a 21-gauge micropuncture needle under u ltrasound guidance. A 0.018 inch guidewire was advanced through the micropuncture needle and into the vein. Under fluoroscopic guidance, the guidewire was advanced to the superior vena cava. The PICC was flushed and trimmed to the appropriate length. The micropuncture needle was exchanged over the guidewire for a 5 [place] peel-away dilator sheath. The dilator was exchanged over the guidewire for t he PICC, which was then further advanced under fluoroscopy. The sheath and guidewire were removed. The PICC was flushed again and secured in place at the arm after adjustment of tip position. The tasia ent tolerated the procedure well. There was no complication. IMPRESSION: Successful placement of PICC (peripherally inserted central catheter).
[2019-07-14] MEDS: Atorvastatin Calcium 40 MG TAB PO SCH (20:37)
[2019-07-14] MEDS: Sodium Chloride 0.9% 1,000 ML IV SCH (20:37)
[2019-07-14] MEDS: Levothyroxine Sodium 100 MCG TAB PO SCH (20:39)
[2019-07-14] MEDS: Lidocaine Patch Removal TOP SCH (20:48)
[2019-07-15] MEDS: HYDROcodone/Acetaminophen 5/325 mg Tablet PO PRN ×3 (04:36→16:07)
[2019-07-15] MEDS: Aspirin 81 mg Enteric Coated Tablet PO SCH (08:42)
[2019-07-15] MEDS: DULoxetine 30 MG CAP PO SCH (08:42)
[2019-07-15] MEDS: Cyanocobalamin (Vitamin B-12) 1,000 MCG TAB PO SCH (08:42)
[2019-07-15] MEDS: Tamsulosin HCl 0.4 MG CAP PO SCH (08:42)
[2019-07-15] MEDS: Enoxaparin Sodium 40 MG/0.4 ML SYRINGE SC SCH (08:42)
[2019-07-15] MEDS: Clopidogrel Bisulfate 75 MG TAB PO SCH (08:42)
[2019-07-15] MEDS: Lidocaine 5% Patch TD SCH (08:42)
[2019-07-15] MEDS: Senokot S 8.6-50 MG TAB PO SCH ×2 (08:43→22:21)
[2019-07-15] MEDS: Metoprolol Tartrate 25 MG TAB PO SCH ×2 (08:43→22:22)
[2019-07-15] MEDS: FLUoxetine HCl 20 MG CAP PO SCH (08:43)
[2019-07-15] MEDS: hydrALAZINE 25 MG TAB PO SCH ×3 (08:43→22:21)
[2019-07-15] MEDS: Gabapentin 300 MG CAP PO SCH ×3 (08:43→22:23)
[2019-07-15] MEDS: Famotidine 20 MG TAB PO SCH ×2 (08:43→22:22)
[2019-07-15] MEDS: Vancomycin HCl 1 GM in Premix Bag 1 BAG IVPB SCH ×2 (11:04→23:01)
--- NOTE | 2019-07-15 13:34 | PDOC.HOSPP ---
- Subjective Encounter Date: 07/15/19 Encounter Time: 13:32 Subjective: no specific complaints - Objective Vital Signs & Weight: Vital Signs (12 hours) Temp Pulse Resp BP BP BP Pulse Ox 07/15/19 11:30 98.1 F 84 18 175/87 H 92 L 07/15/19 09:30 158/93 H 07/15/19 08:43 96 219/114 H 07/15/19 07:39 97.9 F 97 18 219/114 H 96 07/15/19 05:17 99 144/87 H 07/15/19 03:45 98.5 F 96 16 163/104 H 96 Weight Admit Weight 229 lb 6.4 oz Weight 229 lb 6.4 oz I&O: 07/14/19 07/15/19 07/16/19 06:59 06:59 06:59 Intake Total 1040 714 Output Total 1025 1850 800 Balance 15 -1850 -86 Result Diagrams: 07/13/19 04:44 07/13/19 04:44 Hospitalist ROS - Medication Medications: Active Medications Generic Name Dose Route Start Last Admin Trade Name Freq PRN Reason Stop Dose Admin Acetaminophen 650 mg 07/11/19 21:08 07/14/19 06:05 Tylenol PO 650 mg Q4H PRN Administration Headache/Fever/Mild Pain (1-3) Hydrocodone Bitart/Acetaminophen 1 tab 07/11/19 21:08 07/15/19 11:04 [place] 5/325 PO 1 tab Q4H PRN Administration Moderate Pain (4-6) Alprazolam 0.25 mg 07/12/19 17:37 07/12/19 19:48 Xanax PO 0.25 mg BIDPRN PRN Administration Anxiety Aspirin 81 mg 07/12/19 09:00 07/15/19 08:42 Ecotrin PO 81 mg DAILY SKYLER Administration Atorvastatin Calcium 40 mg 07/12/19 21:00 07/14/19 20:37 Lipitor PO 40 mg QPM SKYLER Administration Clopidogrel Bisulfate 75 mg 07/12/19 09:00 07/15/19 08:42 Plavix PO 75 mg DAILY SKYLER Administration Cyanocobalamin 2,000 mcg 07/12/19 09:00 07/15/19 08:42 Vitamin B-12 PO 2,000 mcg DAILY SKYLER Administration Duloxetine HCl 30 mg 07/12/19 09:00 07/15/19 08:42 Cymbalta PO 30 mg DAILY SKYLER Administration Enoxaparin Sodium 40 mg 07/12/19 09:00 07/15/19 08:42 Lovenox SC 40 mg 0900 SKYLER Administration Famotidine 20 mg 07/12/19 09:00 07/15/19 08:43 Pepcid PO 20 mg BID SKYLER Administration Fluoxetine HCl 20 mg 07/12/19 09:00 07/15/19 08:43 Prozac PO 20 mg DAILY SKYLER Administration Gabapentin 600 mg 07/12/19 21:00 07/15/19 08:43 Neurontin PO 600 mg TID SKYLER Administration Hydralazine HCl 10 mg 07/11/19 21:12 07/14/19 04:18 Apresoline SLOW IVP 10 mg Q15MIN PRN Administration Hypertension Hydralazine HCl 50 mg 07/14/19 09:00 07/15/19 08:43 Apresoline PO 50 mg TID SKYLER Administration Sodium Chloride 1,000 mls @ 60 mls/hr 07/11/19 21:15 07/14/19 20:37 Normal Saline 0.9% IV 1,000 mls .[id number] SKYLER Administration Ceftriaxone Sodium 2 gm/ 100 mls @ 200 mls/hr 07/12/19 16:00 07/14/19 15:44 Sodium Chloride IVPB 100 mls Q24HR@1600 SKYLER Administration Vancomycin HCl 1 gm/ Device 200 mls @ 200 mls/hr 07/12/19 11:00 07/15/19 11: 04 IVPB 200 mls 1100,2300 SKYLER Administration Levetiracetam 500 mg/ Device 100 mls @ 200 mls/hr 07/12/19 21:00 07/15/19 08: 42 IVPB 100 mls BID SKYLER Administration Labetalol HCl 20 mg 07/13/19 04:33 07/13/19 04:49 Normodyne SLOW IVP 20 mg Q4H PRN Administration SBP Greater Than 170 Levothyroxine Sodium 100 mcg 07/12/19 21:00 07/14/19 20:39 Synthroid PO 100 mcg QPM SKYLER Administration Lidocaine 1 patch 07/12/19 09:00 07/15/19 08:42 Lidoderm 5% Patch TD 1 patch DAILY SKYLER Administration Metoprolol Tartrate 12.5 mg 07/14/19 09:00 07/15/19 08:43 Lopressor PO 12.5 mg BID SKYLER Administration Miscellaneous Medication 1 each 07/12/19 21:00 07/14/19 20:48 Lidocaine Patch Removal TOP Not Given 2100 SKYLER Senna/Docusate Sodium 1 tab 07/12/19 09:00 07/15/19 08:43 Senokot S PO 1 tab BID SKYLER Administration Sodium Chloride 10 ml 07/12/19 09:00 07/15/19 08:53 Flush - Normal Saline IVF 10 ml Q12HR SKYLER Administration Sodium Chloride 10 ml 07/11/19 21:17 07/13/19 04:49 Flush - Normal Saline IVF 10 ml PRN PRN Administration Saline Flush Tamsulosin HCl 0.4 mg 07/12/19 09:00 07/15/19 08:42 Flomax PO 0.4 mg DAILY SKYLER Administration Temazepam 15 mg 07/12/19 17:43 07/12/19 22:25 Restoril PO 15 mg HS PRN Administration insomnia - Exam Neck: no JVD Heart: RRR, no murmur Respiratory: CTAB Gastrointestinal: soft, normal bowel sounds Extremities: no edema Hosp A/P (1) Diskitis Code(s): M46.40 - DISCITIS, UNSPECIFIED, SITE UNSPECIFIED Status: Acute (2) Seizure Code(s): R56.9 - UNSPECIFIED CONVULSIONS Status: Acute (3) Stroke Code(s): I63.9 - CEREBRAL INFARCTION, UNSPECIFIED Status: Acute Qualifiers: CVA mechanism: thrombosis Laterality of affected vessel: right (4) Hypertension Code(s): I10 - ESSENTIAL (PRIMARY) HYPERTENSION Status: Chronic Qualifiers: Hypertension type: essential hypertension Qualified Code(s): I10 - Essential (primary) hypertension (5) Hypothyroidism Code(s): E03.9 - HYPOTHYROIDISM, UNSPECIFIED Status: Chronic Qualifiers: Hypothyroidism type: unspecified Qualified Code(s): E03.9 - Hypothyroidism , unspecified - Plan cont keppra, assa, statin cont iv antibx lorene diskitis cont metoprolol, hydralazine , etc for, BP placement pending
[2019-07-15] MEDS: cefTRIAXone\\ROCEPHIN 2 GM in Sodium Chloride 0.9% 100 ML IVPB SCH (16:08)
[2019-07-15] MEDS: Sodium Chloride 0.9% 1,000 ML IV SCH (17:19)
[2019-07-15] MEDS: Levothyroxine Sodium 100 MCG TAB PO SCH (22:21)
[2019-07-15] MEDS: levETIRAcetam 500 MG TAB PO SCH (22:22)
[2019-07-15] MEDS: Atorvastatin Calcium 40 MG TAB PO SCH (22:23)
[2019-07-15] MEDS: Temazepam 15 MG CAP PO PRN (22:24)
[2019-07-15 22:29] LABS: Vancomycin, Trough 20.2 ug/mL
[2019-07-15] MEDS: Lidocaine Patch Removal TOP SCH (23:01)
[2019-07-16] MEDS: ALPRAZolam 0.25 MG TAB PO PRN (04:04)
[2019-07-16] MEDS: Aspirin 81 mg Enteric Coated Tablet PO SCH (08:30)
[2019-07-16] MEDS: Gabapentin 300 MG CAP PO SCH ×3 (08:30→22:23)
[2019-07-16] MEDS: DULoxetine 30 MG CAP PO SCH (08:30)
[2019-07-16] MEDS: Clopidogrel Bisulfate 75 MG TAB PO SCH (08:30)
[2019-07-16] MEDS: Metoprolol Tartrate 25 MG TAB PO SCH ×2 (08:30→22:33)
[2019-07-16] MEDS: Famotidine 20 MG TAB PO SCH ×2 (08:31→22:23)
[2019-07-16] MEDS: hydrALAZINE 25 MG TAB PO SCH ×3 (08:31→22:32)
[2019-07-16] MEDS: levETIRAcetam 500 MG TAB PO SCH ×2 (08:31→22:23)
[2019-07-16] MEDS: Cyanocobalamin (Vitamin B-12) 1,000 MCG TAB PO SCH (08:32)
[2019-07-16] MEDS: Tamsulosin HCl 0.4 MG CAP PO SCH (08:32)
[2019-07-16] MEDS: FLUoxetine HCl 20 MG CAP PO SCH (08:32)
[2019-07-16] MEDS: Lidocaine 5% Patch TD SCH (08:33)
[2019-07-16] MEDS: Enoxaparin Sodium 40 MG/0.4 ML SYRINGE SC SCH (08:33)
[2019-07-16] MEDS: Senokot S 8.6-50 MG TAB PO SCH ×2 (08:36→22:25)
[2019-07-16] MEDS: Vancomycin HCl 1 GM in Premix Bag 1 BAG IVPB SCH ×2 (11:31→23:51)
--- NOTE | 2019-07-16 11:36 | PDOC.HOSPP ---
- Subjective Encounter Date: 07/16/19 Encounter Time: 11:27 Subjective: alert, no fever, chills. adequate pain control - Objective Vital Signs & Weight: Vital Signs (12 hours) Temp Pulse Resp BP BP BP Pulse Ox 07/16/19 08:31 90 193/94 H 07/16/19 08:30 98.1 F 94 14 194/93 H 96 07/16/19 03:30 98.1 F 90 16 184/95 H 97 07/15/19 23:32 97.8 F 87 18 175/85 H 95 Weight Admit Weight 229 lb 6.4 oz Weight 229 lb 6.4 oz I&O: 07/15/19 07/16/19 07/17/19 06:59 06:59 06:59 Intake Total 2186 Output Total 1850 1800 Balance -1850 386 Result Diagrams: 07/13/19 04:44 07/13/19 04:44 Hospitalist ROS - Medication Medications: Active Medications Generic Name Dose Route Start Last Admin Trade Name Freq PRN Reason Stop Dose Admin Acetaminophen 650 mg 07/11/19 21:08 07/14/19 06:05 Tylenol PO 650 mg Q4H PRN Administration Headache/Fever/Mild Pain (1-3) Hydrocodone Bitart/Acetaminophen 1 tab 07/11/19 21:08 07/15/19 16:07 [place] 5/325 PO 1 tab Q4H PRN Administration Moderate Pain (4-6) Alprazolam 0.25 mg 07/12/19 17:37 07/16/19 04:04 Xanax PO 0.25 mg BIDPRN PRN Administration Anxiety Aspirin 81 mg 07/12/19 09:00 07/16/19 08:30 Ecotrin PO 81 mg DAILY SKYLER Administration Atorvastatin Calcium 40 mg 07/12/19 21:00 07/15/19 22:23 Lipitor PO 40 mg QPM SKYLER Administration Clopidogrel Bisulfate 75 mg 07/12/19 09:00 07/16/19 08:30 Plavix PO 75 mg DAILY SKYLER Administration Cyanocobalamin 2,000 mcg 07/12/19 09:00 07/16/19 08:32 Vitamin B-12 PO 2,000 mcg DAILY SKYLER Administration Duloxetine HCl 30 mg 07/12/19 09:00 07/16/19 08:30 Cymbalta PO 30 mg DAILY SKYLER Administration Enoxaparin Sodium 40 mg 07/12/19 09:00 07/16/19 08:33 Lovenox SC 40 mg 0900 SKYLER Administration Famotidine 20 mg 07/12/19 09:00 07/16/19 08:31 Pepcid PO 20 mg BID SKYLER Administration Fluoxetine HCl 20 mg 07/12/19 09:00 07/16/19 08:32 Prozac PO 20 mg DAILY SKYLER Administration Gabapentin 600 mg 07/12/19 21:00 07/16/19 08:30 Neurontin PO 600 mg TID SKYLER Administration Hydralazine HCl 10 mg 07/11/19 21:12 07/14/19 04:18 Apresoline SLOW IVP 10 mg Q15MIN PRN Administration Hypertension Hydralazine HCl 50 mg 07/14/19 09:00 07/16/19 08:31 Apresoline PO 50 mg TID SKYLER Administration Ceftriaxone Sodium 2 gm/ 100 mls @ 200 mls/hr 07/12/19 16:00 07/15/19 16:08 Sodium Chloride IVPB 100 mls Q24HR@1600 SKYLER Administration Vancomycin HCl 1 gm/ Device 200 mls @ 200 mls/hr 07/12/19 11:00 07/15/19 23: 01 IVPB 200 mls 1100,2300 SKYLER Administration Labetalol HCl 20 mg 07/13/19 04:33 07/13/19 04:49 Normodyne SLOW IVP 20 mg Q4H PRN Administration SBP Greater Than 170 Levetiracetam 500 mg 07/15/19 21:00 07/16/19 08:31 Keppra PO 500 mg BID SKYLER Administration Levothyroxine Sodium 100 mcg 07/12/19 21:00 07/15/19 22:21 Synthroid PO 100 mcg QPM SKYLER Administration Lidocaine 1 patch 07/12/19 09:00 07/16/19 08:33 Lidoderm 5% Patch TD 1 patch DAILY SKYLER Administration Metoprolol Tartrate 12.5 mg 07/14/19 09:00 07/16/19 08:30 Lopressor PO 12.5 mg BID SKYLER Administration Miscellaneous Medication 1 each 07/12/19 21:00 07/15/19 23:01 Lidocaine Patch Removal TOP Not Given 2100 SKYLER Senna/Docusate Sodium 1 tab 07/12/19 09:00 07/16/19 08:36 Senokot S PO Not Given BID SKYLER Sodium Chloride 10 ml 07/12/19 09:00 07/16/19 08:36 Flush - Normal Saline IVF 10 ml Q12HR SKYLER Administration Sodium Chloride 10 ml 07/11/19 21:17 07/13/19 04:49 Flush - Normal Saline IVF 10 ml PRN PRN Administration Saline Flush Tamsulosin HCl 0.4 mg 07/12/19 09:00 07/16/19 08:32 Flomax PO 0.4 mg DAILY SKYLER Administration Temazepam 15 mg 07/12/19 17:43 07/15/19 22:24 Restoril PO 15 mg HS PRN Administration insomnia - Exam General Appearance: awake alert Neck: no JVD Heart: RRR, no murmur Respiratory: CTAB Gastrointestinal: soft, normal bowel sounds Extremities: 1+ LE edema Hosp A/P (1) Diskitis Code(s): M46.40 - DISCITIS, UNSPECIFIED, SITE UNSPECIFIED Status: Acute (2) Seizure Code(s): R56.9 - UNSPECIFIED CONVULSIONS Status: Acute (3) Stroke Code(s): I63.9 - CEREBRAL INFARCTION, UNSPECIFIED Status: Acute Qualifiers: CVA mechanism: thrombosis Laterality of affected vessel: right (4) Hypertension Code(s): I10 - ESSENTIAL (PRIMARY) HYPERTENSION Status: Chronic Qualifiers: Hypertension type: essential hypertension Qualified Code(s): I10 - Essential (primary) hypertension (5) Hypothyroidism Code(s): E03.9 - HYPOTHYROIDISM, UNSPECIFIED Status: Chronic Qualifiers: Hypothyroidism type: unspecified Qualified Code(s): E03.9 - Hypothyroidism , unspecified - Plan cont keppra, assa, statin cont iv antibx lorene diskitis cont metoprolol, hydralazine , etc for, BP placement pending
[2019-07-16] MEDS: HYDROcodone/Acetaminophen 5/325 mg Tablet PO PRN (14:31)
[2019-07-16] MEDS: cefTRIAXone\\ROCEPHIN 2 GM in Sodium Chloride 0.9% 100 ML IVPB SCH (15:08)
[2019-07-16] MEDS: Levothyroxine Sodium 100 MCG TAB PO SCH (22:22)
[2019-07-16] MEDS: Atorvastatin Calcium 40 MG TAB PO SCH (22:23)
[2019-07-16] MEDS: Lidocaine Patch Removal TOP SCH (22:26)
[2019-07-17] MEDS: Enoxaparin Sodium 40 MG/0.4 ML SYRINGE SC SCH (09:21)
[2019-07-17] MEDS: levETIRAcetam 500 MG TAB PO SCH ×2 (09:22→22:08)
[2019-07-17] MEDS: hydrALAZINE 25 MG TAB PO SCH ×3 (09:22→22:08)
[2019-07-17] MEDS: Lidocaine 5% Patch TD SCH (09:22)
[2019-07-17] MEDS: Gabapentin 300 MG CAP PO SCH ×3 (09:23→22:09)
[2019-07-17] MEDS: Clopidogrel Bisulfate 75 MG TAB PO SCH (09:23)
[2019-07-17] MEDS: Senokot S 8.6-50 MG TAB PO SCH ×2 (09:23→22:09)
[2019-07-17] MEDS: Famotidine 20 MG TAB PO SCH ×2 (09:23→22:09)
[2019-07-17] MEDS: FLUoxetine HCl 20 MG CAP PO SCH (09:23)
[2019-07-17] MEDS: Amlodipine 5 MG TAB PO SCH ×2 (09:23→22:09)
[2019-07-17] MEDS: Aspirin 81 mg Enteric Coated Tablet PO SCH (09:23)
[2019-07-17] MEDS: Cyanocobalamin (Vitamin B-12) 1,000 MCG TAB PO SCH (09:23)
[2019-07-17] MEDS: Metoprolol Tartrate 25 MG TAB PO SCH ×2 (09:23→22:08)
[2019-07-17] MEDS: DULoxetine 30 MG CAP PO SCH (09:23)
[2019-07-17] MEDS: Tamsulosin HCl 0.4 MG CAP PO SCH (09:23)
[2019-07-17] MEDS: Vancomycin HCl 1 GM in Premix Bag 1 BAG IVPB SCH ×2 (10:06→23:34)
--- NOTE | 2019-07-17 14:42 | PDOC.HOSPP ---
- Subjective Encounter Date: 07/17/19 Encounter Time: 10:15 Subjective: pt up in bed no complains. oriented x3 - Objective Vital Signs & Weight: Vital Signs (12 hours) Temp Pulse Resp BP BP BP Pulse Ox 07/17/19 11:16 98 F 70 20 122/65 98 07/17/19 09:23 89 168/88 H 07/17/19 09:22 89 168/88 H 07/17/19 07:36 97.8 F 92 20 168/88 H 92 L 07/17/19 05:45 98.4 F 170/66 H 07/17/19 04:00 92.6 F L 90 16 189/87 H 95 Weight Admit Weight 229 lb 6.4 oz Weight 229 lb 6.4 oz I&O: 07/16/19 07/17/19 07/18/19 06:59 06:59 06:59 Intake Total 2186 480 646 Output Total 1800 2100 595 Balance 386 -1620 51 Result Diagrams: 07/13/19 04:44 07/13/19 04:44 Hospitalist ROS - Review of Systems Respiratory: denies: cough, dry, shortness of breath, hemoptysis, SOB with excertion, pleuritic pain, sputum, wheezing, other Cardiovascular: denies: chest pain, palpitations, orthopnea, paroxysmal noc. dyspnea, edema, light headedness, other Gastrointestinal: denies: nausea, vomiting, abdominal pain, diarrhea, constipation, melena, hematochezia, other - Medication Medications: Active Medications Generic Name Dose Route Start Last Admin Trade Name Freq PRN Reason Stop Dose Admin Acetaminophen 650 mg 07/11/19 21:08 07/14/19 06:05 Tylenol PO 650 mg Q4H PRN Administration Headache/Fever/Mild Pain (1-3) Hydrocodone Bitart/Acetaminophen 1 tab 07/11/19 21:08 07/16/19 14:31 [place] 5/325 PO 1 tab Q4H PRN Administration Moderate Pain (4-6) Alprazolam 0.25 mg 07/12/19 17:37 07/16/19 04:04 Xanax PO 0.25 mg BIDPRN PRN Administration Anxiety Amlodipine Besylate 5 mg 07/17/19 09:00 07/17/19 09:23 Norvasc PO 5 mg BID SKYLER Administration Aspirin 81 mg 07/12/19 09:00 07/17/19 09:23 Ecotrin PO 81 mg DAILY SKYLER Administration Atorvastatin Calcium 40 mg 07/12/19 21:00 07/16/19 22:23 Lipitor PO 40 mg QPM SKYLER Administration Clopidogrel Bisulfate 75 mg 07/12/19 09:00 07/17/19 09:23 Plavix PO 75 mg DAILY SKYLER Administration Cyanocobalamin 2,000 mcg 07/12/19 09:00 07/17/19 09:23 Vitamin B-12 PO 2,000 mcg DAILY SKYLER Administration Duloxetine HCl 30 mg 07/12/19 09:00 07/17/19 09:23 Cymbalta PO 30 mg DAILY SKYLER Administration Enoxaparin Sodium 40 mg 07/12/19 09:00 07/17/19 09:21 Lovenox SC 40 mg 0900 SKYLER Administration Famotidine 20 mg 07/12/19 09:00 07/17/19 09:23 Pepcid PO 20 mg BID SKYLER Administration Fluoxetine HCl 20 mg 07/12/19 09:00 07/17/19 09:23 Prozac PO 20 mg DAILY SKYLER Administration Gabapentin 600 mg 07/12/19 21:00 07/17/19 09:23 Neurontin PO 600 mg TID SKYLER Administration Hydralazine HCl 10 mg 07/11/19 21:12 07/14/19 04:18 Apresoline SLOW IVP 10 mg Q15MIN PRN Administration Hypertension Hydralazine HCl 50 mg 07/14/19 09:00 07/17/19 09:22 Apresoline PO 50 mg TID SKYLER Administration Ceftriaxone Sodium 2 gm/ 100 mls @ 200 mls/hr 07/12/19 16:00 07/16/19 15:08 Sodium Chloride IVPB 100 mls Q24HR@1600 SKYLER Administration Vancomycin HCl 1 gm/ Device 200 mls @ 200 mls/hr 07/12/19 11:00 07/17/19 10: 06 IVPB 200 mls 1100,2300 SKYLER Administration Labetalol HCl 20 mg 07/13/19 04:33 07/13/19 04:49 Normodyne SLOW IVP 20 mg Q4H PRN Administration SBP Greater Than 170 Levetiracetam 500 mg 07/15/19 21:00 07/17/19 09:22 Keppra PO 500 mg BID SKYLER Administration Levothyroxine Sodium 100 mcg 07/12/19 21:00 07/16/19 22:22 Synthroid PO 100 mcg QPM SKYLER Administration Lidocaine 1 patch 07/12/19 09:00 07/17/19 09:22 Lidoderm 5% Patch TD 1 patch DAILY SKYLER Administration Metoprolol Tartrate 25 mg 07/17/19 09:00 07/17/19 09:23 Lopressor PO 25 mg BID SKYLER Administration Miscellaneous Medication 1 each 07/12/19 21:00 07/16/19 22:26 Lidocaine Patch Removal TOP 1 each 2100 SKYLER Administration Senna/Docusate Sodium 1 tab 07/12/19 09:00 07/17/19 09:23 Senokot S PO Not Given BID SKYLER Sodium Chloride 10 ml 07/12/19 09:00 07/17/19 09:25 Flush - Normal Saline IVF 10 ml Q12HR SKYLER Administration Sodium Chloride 10 ml 07/11/19 21:17 07/13/19 04:49 Flush - Normal Saline IVF 10 ml PRN PRN Administration Saline Flush Tamsulosin HCl 0.4 mg 07/12/19 09:00 07/17/19 09:23 Flomax PO 0.4 mg DAILY SKYLER Administration Temazepam 15 mg 07/12/19 17:43 07/15/19 22:24 Restoril PO 15 mg HS PRN Administration insomnia - Exam Heart: negative: RRR, no murmur, no gallops, no rubs, normal peripheral pulses, irregular, diminshed peripheral pulses, murmur present, II/IV, III/IV Respiratory: negative: CTAB, no wheezes, no rales, no ronchi, normal chest expansion, no tachypnea, normal percussion, rales, rhonchi, tachypneic, wheezes Gastrointestinal: negative: soft, non-tender, non-distended, normal bowel sounds , no palpable masses, no hepatomegaly, no splenomegaly, no bruit, no guarding, no rigidity, tender to palpation, distended, diminished bowl sounds, voluntary guarding Hosp A/P (1) Acute metabolic encephalopathy Code(s): G93.41 - METABOLIC ENCEPHALOPATHY Status: Acute (2) Seizure Code(s): R56.9 - UNSPECIFIED CONVULSIONS Status: Acute (3) Diskitis Code(s): M46.40 - DISCITIS, UNSPECIFIED, SITE UNSPECIFIED Status: Acute (4) Stroke Code(s): I63.9 - CEREBRAL INFARCTION, UNSPECIFIED Status: Acute Qualifiers: CVA mechanism: thrombosis Laterality of affected vessel: right (5) Hypertension Code(s): I10 - ESSENTIAL (PRIMARY) HYPERTENSION Status: Chronic Qualifiers: Hypertension type: essential hypertension Qualified Code(s): I10 - Essential (primary) hypertension (6) Hypothyroidism Code(s): E03.9 - HYPOTHYROIDISM, UNSPECIFIED Status: Chronic Qualifiers: Hypothyroidism type: unspecified Qualified Code(s): E03.9 - Hypothyroidism , unspecified - Plan nurse from [facility] states that pt was starring when he upper and lower ext had jerking movements. will get neurology and get mri brain. will continue abx. He was on all his meds earlier at the hospital. Not sure if this is due to pain vs seizure. 07/17 pt more awake, on antiseizure meds. awaiting placement.
[2019-07-17] MEDS: HYDROcodone/Acetaminophen 5/325 mg Tablet PO PRN ×2 (15:07→22:07)
[2019-07-17] MEDS: cefTRIAXone\\ROCEPHIN 2 GM in Sodium Chloride 0.9% 100 ML IVPB SCH (17:26)
[2019-07-17] MEDS: Atorvastatin Calcium 40 MG TAB PO SCH (22:08)
[2019-07-17] MEDS: Levothyroxine Sodium 100 MCG TAB PO SCH (22:09)
[2019-07-17] MEDS: Temazepam 15 MG CAP PO PRN (23:34)
[2019-07-17] MEDS: Lidocaine Patch Removal TOP SCH (23:34)
[2019-07-18] MEDS: HYDROcodone/Acetaminophen 5/325 mg Tablet PO PRN ×4 (05:15→21:30)
[2019-07-18] MEDS: Senokot S 8.6-50 MG TAB PO SCH ×2 (09:24→21:30)
[2019-07-18] MEDS: Amlodipine 5 MG TAB PO SCH ×2 (09:24→21:29)
[2019-07-18] MEDS: Gabapentin 300 MG CAP PO SCH ×3 (09:24→21:29)
[2019-07-18] MEDS: Metoprolol Tartrate 25 MG TAB PO SCH ×2 (09:24→21:30)
[2019-07-18] MEDS: Aspirin 81 mg Enteric Coated Tablet PO SCH (09:24)
[2019-07-18] MEDS: levETIRAcetam 500 MG TAB PO SCH ×2 (09:24→21:29)
[2019-07-18] MEDS: Cyanocobalamin (Vitamin B-12) 1,000 MCG TAB PO SCH (09:24)
[2019-07-18] MEDS: hydrALAZINE 25 MG TAB PO SCH ×3 (09:25→21:30)
[2019-07-18] MEDS: Clopidogrel Bisulfate 75 MG TAB PO SCH (09:25)
[2019-07-18] MEDS: FLUoxetine HCl 20 MG CAP PO SCH (09:25)
[2019-07-18] MEDS: Tamsulosin HCl 0.4 MG CAP PO SCH (09:25)
[2019-07-18] MEDS: Famotidine 20 MG TAB PO SCH ×2 (09:25→21:30)
[2019-07-18] MEDS: DULoxetine 30 MG CAP PO SCH (09:25)
[2019-07-18] MEDS: Enoxaparin Sodium 40 MG/0.4 ML SYRINGE SC SCH (09:25)
[2019-07-18] MEDS: Lidocaine 5% Patch TD SCH (09:33)
[2019-07-18] MEDS: Vancomycin HCl 1 GM in Premix Bag 1 BAG IVPB SCH ×2 (10:36→22:32)
--- NOTE | 2019-07-18 13:59 | PDOC.HOSPP ---
- Subjective Encounter Date: 07/18/19 Encounter Time: 10:00 Subjective: pt up in bed no complains - Objective Vital Signs & Weight: Vital Signs (12 hours) Temp Pulse Resp BP BP Pulse Ox 07/18/19 11:15 99 F 67 20 127/71 94 L 07/18/19 09:25 73 128/79 07/18/19 09:24 73 128/79 07/18/19 07:37 98.3 F 73 20 128/79 93 L 07/18/19 04:00 98.5 F 75 16 127/83 95 Weight Admit Weight 229 lb 6.4 oz Weight 229 lb 6.4 oz I&O: 07/17/19 07/18/19 07/19/19 06:59 06:59 06:59 Intake Total 480 1443 Output Total 2100 1400 Balance -1620 43 Result Diagrams: 07/13/19 04:44 07/13/19 04:44 Hospitalist ROS - Review of Systems Cardiovascular: denies: chest pain, palpitations, orthopnea, paroxysmal noc. dyspnea, edema, light headedness, other Gastrointestinal: denies: nausea, vomiting, abdominal pain, diarrhea, constipation, melena, hematochezia, other Genitourinary: denies: dysuria, frequency, incontinence, hematuria, retention, other - Medication Medications: Active Medications Generic Name Dose Route Start Last Admin Trade Name Freq PRN Reason Stop Dose Admin Acetaminophen 650 mg 07/11/19 21:08 07/14/19 06:05 Tylenol PO 650 mg Q4H PRN Administration Headache/Fever/Mild Pain (1-3) Hydrocodone Bitart/Acetaminophen 1 tab 07/11/19 21:08 07/18/19 09:32 [place] 5/325 PO 1 tab Q4H PRN Administration Moderate Pain (4-6) Alprazolam 0.25 mg 07/12/19 17:37 07/16/19 04:04 Xanax PO 0.25 mg BIDPRN PRN Administration Anxiety Amlodipine Besylate 5 mg 07/17/19 09:00 07/18/19 09:24 Norvasc PO 5 mg BID SKYLER Administration Aspirin 81 mg 07/12/19 09:00 07/18/19 09:24 Ecotrin PO 81 mg DAILY SKYLER Administration Atorvastatin Calcium 40 mg 07/12/19 21:00 07/17/19 22:08 Lipitor PO 40 mg QPM SKYLER Administration Clopidogrel Bisulfate 75 mg 07/12/19 09:00 07/18/19 09:25 Plavix PO 75 mg DAILY SKYLER Administration Cyanocobalamin 2,000 mcg 07/12/19 09:00 07/18/19 09:24 Vitamin B-12 PO 2,000 mcg DAILY SKYLER Administration Duloxetine HCl 30 mg 07/12/19 09:00 07/18/19 09:25 Cymbalta PO 30 mg DAILY SKYLER Administration Enoxaparin Sodium 40 mg 07/12/19 09:00 07/18/19 09:25 Lovenox SC 40 mg 0900 SKYLER Administration Famotidine 20 mg 07/12/19 09:00 07/18/19 09:25 Pepcid PO 20 mg BID SKYLER Administration Fluoxetine HCl 20 mg 07/12/19 09:00 07/18/19 09:25 Prozac PO 20 mg DAILY SKYLER Administration Gabapentin 600 mg 07/12/19 21:00 07/18/19 09:24 Neurontin PO 600 mg TID SKYLER Administration Hydralazine HCl 10 mg 07/11/19 21:12 07/14/19 04:18 Apresoline SLOW IVP 10 mg Q15MIN PRN Administration Hypertension Hydralazine HCl 50 mg 07/14/19 09:00 07/18/19 09:25 Apresoline PO 50 mg TID SKYLER Administration Ceftriaxone Sodium 2 gm/ 100 mls @ 200 mls/hr 07/12/19 16:00 07/17/19 17:26 Sodium Chloride IVPB 100 mls Q24HR@1600 SKYLER Administration Vancomycin HCl 1 gm/ Device 200 mls @ 200 mls/hr 07/12/19 11:00 07/18/19 10: 36 IVPB 200 mls 1100,2300 SKYLER Administration Labetalol HCl 20 mg 07/13/19 04:33 07/13/19 04:49 Normodyne SLOW IVP 20 mg Q4H PRN Administration SBP Greater Than 170 Levetiracetam 500 mg 07/15/19 21:00 07/18/19 09:24 Keppra PO 500 mg BID SKYLER Administration Levothyroxine Sodium 100 mcg 07/12/19 21:00 07/17/19 22:09 Synthroid PO 100 mcg QPM SKYLER Administration Lidocaine 1 patch 07/12/19 09:00 07/18/19 09:33 Lidoderm 5% Patch TD 1 patch DAILY SKYLER Administration Metoprolol Tartrate 25 mg 07/17/19 09:00 07/18/19 09:24 Lopressor PO 25 mg BID SKYLER Administration Miscellaneous Medication 1 each 07/12/19 21:00 07/17/19 23:34 Lidocaine Patch Removal TOP 1 each 2100 SKYLER Administration Senna/Docusate Sodium 1 tab 07/12/19 09:00 07/18/19 09:24 Senokot S PO Not Given BID SKYLER Sodium Chloride 10 ml 07/12/19 09:00 07/18/19 10:36 Flush - Normal Saline IVF 10 ml Q12HR SKYLER Administration Sodium Chloride 10 ml 07/11/19 21:17 07/13/19 04:49 Flush - Normal Saline IVF 10 ml PRN PRN Administration Saline Flush Tamsulosin HCl 0.4 mg 07/12/19 09:00 07/18/19 09:25 Flomax PO 0.4 mg DAILY SKYLER Administration Temazepam 15 mg 07/12/19 17:43 07/17/19 23:34 Restoril PO 15 mg HS PRN Administration insomnia - Exam Heart: negative: RRR, no murmur, no gallops, no rubs, normal peripheral pulses, irregular, diminshed peripheral pulses, murmur present, II/IV, III/IV Respiratory: negative: CTAB, no wheezes, no rales, no ronchi, normal chest expansion, no tachypnea, normal percussion, rales, rhonchi, tachypneic, wheezes Gastrointestinal: negative: soft, non-tender, non-distended, normal bowel sounds , no palpable masses, no hepatomegaly, no splenomegaly, no bruit, no guarding, no rigidity, tender to palpation, distended, diminished bowl sounds, voluntary guarding Hosp A/P (1) Acute metabolic encephalopathy Code(s): G93.41 - METABOLIC ENCEPHALOPATHY Status: Acute (2) Seizure Code(s): R56.9 - UNSPECIFIED CONVULSIONS Status: Acute (3) Diskitis Code(s): M46.40 - DISCITIS, UNSPECIFIED, SITE UNSPECIFIED Status: Acute (4) Stroke Code(s): I63.9 - CEREBRAL INFARCTION, UNSPECIFIED Status: Acute Qualifiers: CVA mechanism: thrombosis Laterality of affected vessel: right (5) Hypertension Code(s): I10 - ESSENTIAL (PRIMARY) HYPERTENSION Status: Chronic Qualifiers: Hypertension type: essential hypertension Qualified Code(s): I10 - Essential (primary) hypertension (6) Hypothyroidism Code(s): E03.9 - HYPOTHYROIDISM, UNSPECIFIED Status: Chronic Qualifiers: Hypothyroidism type: unspecified Qualified Code(s): E03.9 - Hypothyroidism , unspecified - [facility] that pt was [facility] when he upper and lower ext had jerking movements. will get neurology and get mri brain. will continue abx. He was on all his meds earlier at the hospital. Not sure if this is due to pain vs seizure. 07/17 pt more awake, on antiseizure meds. awaiting placement. 07/18 will continue current meds. Awaiting placement
[2019-07-18] MEDS: cefTRIAXone\\ROCEPHIN 2 GM in Sodium Chloride 0.9% 100 ML IVPB SCH (15:14)
[2019-07-18] MEDS: Atorvastatin Calcium 40 MG TAB PO SCH (21:30)
[2019-07-18] MEDS: Levothyroxine Sodium 100 MCG TAB PO SCH (21:30)
[2019-07-18] MEDS: Lidocaine Patch Removal TOP SCH (21:34)
[2019-07-18] MEDS: Temazepam 15 MG CAP PO PRN (22:32)
[2019-07-19] MEDS: HYDROcodone/Acetaminophen 5/325 mg Tablet PO PRN ×3 (07:25→18:59)
[2019-07-19] MEDS: Amlodipine 5 MG TAB PO SCH ×2 (09:25→23:21)
[2019-07-19] MEDS: FLUoxetine HCl 20 MG CAP PO SCH (09:26)
[2019-07-19] MEDS: Enoxaparin Sodium 40 MG/0.4 ML SYRINGE SC SCH (09:26)
[2019-07-19] MEDS: DULoxetine 30 MG CAP PO SCH (09:26)
[2019-07-19] MEDS: Gabapentin 300 MG CAP PO SCH ×3 (09:26→21:38)
[2019-07-19] MEDS: Clopidogrel Bisulfate 75 MG TAB PO SCH (09:26)
[2019-07-19] MEDS: Cyanocobalamin (Vitamin B-12) 1,000 MCG TAB PO SCH (09:26)
[2019-07-19] MEDS: hydrALAZINE 25 MG TAB PO SCH ×3 (09:26→23:21)
[2019-07-19] MEDS: Famotidine 20 MG TAB PO SCH ×2 (09:26→21:38)
[2019-07-19] MEDS: Aspirin 81 mg Enteric Coated Tablet PO SCH (09:26)
[2019-07-19] MEDS: Lidocaine 5% Patch TD SCH (09:27)
[2019-07-19] MEDS: levETIRAcetam 500 MG TAB PO SCH ×2 (09:27→21:38)
[2019-07-19] MEDS: Metoprolol Tartrate 25 MG TAB PO SCH ×2 (09:27→23:21)
[2019-07-19] MEDS: Tamsulosin HCl 0.4 MG CAP PO SCH (09:27)
[2019-07-19] MEDS: Senokot S 8.6-50 MG TAB PO SCH ×2 (09:27→21:38)
[2019-07-19] MEDS: Vancomycin HCl 1 GM in Premix Bag 1 BAG IVPB SCH ×2 (11:38→23:17)
[2019-07-19] MEDS: cefTRIAXone\\ROCEPHIN 2 GM in Sodium Chloride 0.9% 100 ML IVPB SCH (15:18)
[2019-07-19] MEDS: Atorvastatin Calcium 40 MG TAB PO SCH (21:38)
[2019-07-19] MEDS: Levothyroxine Sodium 100 MCG TAB PO SCH (21:38)
[2019-07-19] MEDS: Temazepam 15 MG CAP PO PRN (23:17)
[2019-07-20] MEDS: Lidocaine Patch Removal TOP SCH (00:19)
[2019-07-20 07:45] VITALS: TEMP 97.8
[2019-07-20] MEDS: Enoxaparin Sodium 40 MG/0.4 ML SYRINGE SC SCH (09:41)
[2019-07-20] MEDS: Gabapentin 300 MG CAP PO SCH (09:41)
[2019-07-20] MEDS: Famotidine 20 MG TAB PO SCH (09:42)
[2019-07-20] MEDS: levETIRAcetam 500 MG TAB PO SCH (09:42)
[2019-07-20] MEDS: FLUoxetine HCl 20 MG CAP PO SCH (09:42)
[2019-07-20] MEDS: Aspirin 81 mg Enteric Coated Tablet PO SCH (09:43)
[2019-07-20] MEDS: Clopidogrel Bisulfate 75 MG TAB PO SCH (09:43)
[2019-07-20] MEDS: Senokot S 8.6-50 MG TAB PO SCH ×2 (09:43→09:56)
[2019-07-20] MEDS: DULoxetine 30 MG CAP PO SCH (09:43)
[2019-07-20] MEDS: Cyanocobalamin (Vitamin B-12) 1,000 MCG TAB PO SCH (09:43)
[2019-07-20] MEDS: Tamsulosin HCl 0.4 MG CAP PO SCH (09:43)
[2019-07-20] MEDS: Lidocaine 5% Patch TD SCH (09:44)
[2019-07-20] MEDS: HYDROcodone/Acetaminophen 5/325 mg Tablet PO PRN (09:58)
[2019-07-20 11:20] LABS: Vancomycin, Trough 26.8 ug/mL
[2019-07-20] MEDS: Amlodipine 5 MG TAB PO SCH (11:46)
[2019-07-20] MEDS: hydrALAZINE 25 MG TAB PO SCH (11:47)
[2019-07-20 11:48] VITALS: BP 109/67
[2019-07-20] MEDS: Metoprolol Tartrate 25 MG TAB PO SCH (11:48)
--- NOTE | 2019-07-25 19:50 | EKG ---
Test Reason : Blood Pressure : / mmHG Vent. Rate : 104 BPM Atrial Rate : 104 BPM P-R Int : 154 ms QRS Dur : 106 ms QT Int : 348 ms P-R-T Axes : 007 018 090 degrees QTc Int : 457 ms Sinus tachycardia Otherwise normal ECG Confirmed by SCOOTER MORSE D.O. ([id number]), legal editor GARETH [id number] ([id number] on 07/25/2019 7:48:51 PM Referred By: Confirmed By:SCOOTER MORSE D.O.
== END 2019-07-20 10:56 ==
LOC: ERS 17:22 → T4-B 21:08 → 2SE 07-12 20:28
PROVIDERS: ADMIT Internal Medicine; ATTEND Internal Medicine
PROC: 02HV33Z Insertion of Infusion Device into Superior Vena Cava, Percutaneous Approach (ICD-10-PCS; principal; 2019-07-14)
DX: R56.9 Unspecified convulsions (principal); M46.56 Other infective spondylopathies, lumbar region; G93.41 Metabolic encephalopathy; E03.9 Hypothyroidism, unspecified; E78.5 Hyperlipidemia, unspecified; F41.9 Anxiety disorder, unspecified; I10 Essential (primary) hypertension; N17.9 Acute kidney failure, unspecified; Z86.73 Personal history of transient ischemic attack (TIA), and cerebral infarction without residual deficits; Z79.02 Long term (current) use of antithrombotics/antiplatelets; Z79.2 Long term (current) use of antibiotics; Z79.82 Long term (current) use of aspirin; Z79.899 Other long term (current) drug therapy; Z91.013 Allergy to seafood; Z91.041 Radiographic dye allergy status
CPT/HCPCS: 36569; 70450; 70551; 71045; 80048 ×2; 80053; 80202 ×4; 81003 ×2; 82553; 82570; 83605; 83735; 84100; 84300; 84484 ×3; 85007; 85025 ×2; 85027; 87040; 93005; 96361 ×4; 96365; 96366 ×2; 96367; 96372 ×7; 96375 ×2; 96376 ×8; 97110 ×2; 97116 ×2; 97139 ×13; 97530 ×3; 99285; C1751; G0378 ×11; 36415; 96360; J0360; J0696; J1644; J1650; J1953; J2060; J3370; J3490